=== PATIENT | male | born 1960 | race Caucasian/White ===

== ENCOUNTER 2016-11-13 18:15 | Observation (INO) | payer BC ==
[2016-11-13] MEDS ORDERED: Zofran 4 MG/2 ML VIAL IV ONE (18:29)
[2016-11-13] MEDS ORDERED: THIAMINE 200 MG/2 ML IM ONE (18:29)
[2016-11-13] MEDS ORDERED: Sodium Chloride 0.9% 1000 ML 1,000 ML IV STA (18:29)
[2016-11-13] MEDS ORDERED: Ativan 2 MG/1 ML VIAL IV ONE ×2 (18:29→19:25)
[2016-11-13] MEDS ORDERED: PROTONIX 40 MG IV IV ONE ×2 (18:30→18:33)
[2016-11-13] MEDS ORDERED: Ativan 2 MG/1 ML VIAL ONE ×2 (18:33→19:28)
[2016-11-13] MEDS ORDERED: Zofran 4 MG/2 ML VIAL ONE (18:33)
[2016-11-13] MEDS ORDERED: THIAMINE 200 MG/2 ML ONE (18:33)
[2016-11-13] MEDS ORDERED: Sodium Chloride 0.9% 1000 ML 1,000 ML ONE (18:34)
[2016-11-13 18:35] LABS: Lactic Acid 2.6 (0.4-2.0)
[2016-11-13 18:38] LABS: BASOPHIL % 0.3 % (0.0-0.4); Eosinophil % 0.4 % (0.00-5.0); Granulocytes % 77.3 % (36.0-66.0); Lymphocytes % 13.4 % (24.0-44.0); Mean Cell Volume 104.2 fl (78-100); Mean Corpuscular Hemoglobin 36.5 pg (26-32); Mean Platelet Volume 10.1 fl (6-9.5); Monocytes % 8.6 % (0.0-12.0); Platelet Count 208 K/mm3 (150-450); Red Blood Count 4.52 M/mm3 (4.1-5.6); Red Cell Distribution Width 12.8 % (11.5-14.0); White Blood Count 15.5 K/mm3 (4.0-10.5)
--- NOTE | 2016-11-13 18:41 | ERPHSYRPT ---
- History of Present Illness Time Seen by Provider: 11/13/16 18:21 Source: patient, family (son) Patient Subjective Stated Complaint: PT REPORTS VOMITING SINCE THIS AM-REPORTS NOT EATING SINCE MONDAY DUE TO DRINKING-LAST DRINK BHAKTI 0 LAST NIGHT-REPORTS SORENESS FROM VOMTING-UNSURE IF BLOOD IN VOMIT Triage Nursing Assessment: PT FLUSHED WARM ET NVP-SJIYH-RYSHCOAVE ALL QUESTIONS CORRECTLY-RESP EASY ET NONLABORED-PUPILS RESPONSIVE-NO DIAPHOSIS NOTED-ABD NONTENDER TO PALP Physician History: CC: vomiting Hx: 56 y/o patient of Dr Mcbride is a chronic drinker of alcohol. He has not eaten for 2 days. He is vomiting today, dark colored liquid. No diarrhea. No real abd pain. No chest pain. No prior abd surgeries. He feels tired and fatigue. had esophageal varices. Last alcohol was last night at 10PM. He has hx of prior alcohol withdrawal but does not feels tremors today. Decreased urination. Symptoms moderate. Not dizzy or lightheaded. Timing/Duration: today Severity: moderate Allergies/Adverse Reactions: No Known Drug Allergies Allergy (Verified 11/13/16 18:28) Home Medications: Carvedilol 6.25 mg [Coreg 6.25 MG] 1 tab PO BID 02/19/14 [History] Hx Tetanus, Diphtheria Vaccination/Date Given: Yes Hx Influenza Vaccination/Date Given: No Hx Pneumococcal Vaccination/Date Given: No Immunizations Up to Date: Yes - Review of Systems Constitutional: Fatigue, Malaise, Weakness, No Fever, No Chills Eyes: No Symptoms Ears, Nose, & Throat: No Symptoms Respiratory: No Cough, No Dyspnea Cardiac: No Chest Pain Abdominal/Gastrointestinal: Nausea, Vomiting, Hematemesis (?), No Abdominal Pain , No Diarrhea Genitourinary Symptoms: No Symptoms, No Dysuria Musculoskeletal: No Back Pain Skin: No Rash Neurological: No Dizziness, No Focal Weakness, No Headache, No Parasthesia All Other Systems: Reviewed and Negative - Past Medical History Pertinent Past Medical History: Yes Neurological History: No Pertinent History ENT History: No Pertinent History Cardiac History: Hypertension Respiratory History: No Pertinent History Endocrine Medical History: No Pertinent History Musculoskeletal History: Fractures GI Medical History: Other History: No Pertinent History Psycho-Social History: Other Male Reproductive Disorders: No Pertinent History Other Medical History: dizziness, liver inflammation d/t alcohol intake, alcoholism, broken jaw - Past Surgical History Past Surgical History: Yes Neuro Surgical History: No Pertinent History Cardiac: No Pertinent History Respiratory: No Pertinent History Gastrointestinal: No Pertinent History Genitourinary: No Pertinent History Musculoskeletal: Orthopedic Surgery Male Surgical History: No Pertinent History Other Surgical History: tonsiliectomy, surgery on jaw - Social History Smoking Status: Current every day smoker How long have you smoked: yrs Exposure to second hand smoke: No Drug Use: none Patient Lives Alone: No - Nursing Vital Signs Nursing Vital Signs: Initial Vital Signs Temperature 100.1 F 11/13/16 18:22 Pulse Rate 100 H 11/13/16 18:22 Respiratory Rate 20 11/13/16 18:22 Blood Pressure 210/110 11/13/16 18:22 O2 Sat by Pulse Oximetry 96 11/13/16 18:22 Pain Scale Pain Intensity 1 - Physical Exam General Appearance: alert, thin Eye Exam: PERRL/EOMI, No scleral icterus Ears, Nose, Throat Exam: normal ENT inspection, moist mucous membranes Neck Exam: normal inspection, non-tender, supple Respiratory Exam: normal breath sounds Cardiovascular Exam: regular rate/rhythm, No murmur, No pulse deficit Gastrointestinal/Abdomen Exam: soft, No tenderness, No distention, No mass, No guarding Male Genitalia Exam: normal genitalia Back Exam: normal inspection, No CVA tenderness, No vertebral tenderness Extremity Exam: normal inspection, normal range of motion Neurologic Exam: alert, oriented x 3, cooperative, principal developer II-XII nml as tested, sensation nml, No motor deficits Skin Exam: warm, dry, rash (mild erythematous papules on chest) SpO2 Interpretation: normal SpO2: 96 Oxygen Delivery: Room Air - Course Nursing assessment & vital signs reviewed: Yes EKG Interpreted by Me: RATE (95), Sinus Rhythm (with right atrial enlargement), NORMAL INTERVALS (QTc 458), Non-specific ST Changes (anterior) - Radiology Exams AAS X-ray Interpretation: Interpreted by me, Negative Ordered Tests: Active Orders 24 hr Category Date Time Status Quality And Reliability Engineer STAT Care 11/13/16 18:29 Active Clean Catch Urine Specimen STAT Care 11/13/16 18:22 Active EKG-ER Only STAT Care 11/13/16 18:22 Active IV Insertion STAT Care 11/13/16 18:22 Active NPO (ED) STAT Care 11/13/16 18:22 Active OBSTR/ACUTE ABDOMEN SERIES Stat Exams 11/13/16 18:31 Taken BLOOD CULTURE Stat Lab 11/13/16 18:30 Ordered CBC W DIFF Stat Lab 11/13/16 18:30 Completed CMP Stat Lab 11/13/16 18:30 Completed ETHYL ALCOHOL Stat Lab 11/13/16 18:30 Completed LIPASE Stat Lab 11/13/16 18:30 Completed Lactic Acid Stat Lab 11/13/16 18:30 Results MAGNESIUM Stat Lab 11/13/16 18:30 Completed OCCULT BLOOD, EMESIS Stat Lab 11/13/16 18:30 Completed PROTIME WITH INR Stat Lab 11/13/16 18:30 Completed TROPONIN Q3H Lab 11/13/16 18:30 Completed TROPONIN Q3H Lab 11/13/16 21:45 Ordered TROPONIN Q3H Lab 11/14/16 00:45 Ordered TROPONIN Q3H Lab 11/14/16 03:45 Ordered TROPONIN Q3H Lab 11/14/16 06:45 Ordered UA W/RFX UR CULTURE Stat Lab 11/13/16 18:23 Ordered Medication Summary Discontinued Medications Generic Name Dose Route Start Last Admin Trade Name Freq PRN Reason Stop Dose Admin Sodium Chloride 1,000 mls @ 999 mls/hr 11/13/16 18:29 11/13/16 18:34 Sodium Chloride 0.9% 1000 Ml IV 11/13/16 19:29 999 mls/hr .Q1H1M STA Administration Sodium Chloride Confirm 11/13/16 18:34 Sodium Chloride 0.9% 1000 Ml Administered 11/13/16 18:35 Dose 1,000 mls @ ud .ROUTE .STK-MED ONE Lorazepam 1 mg 11/13/16 18:29 11/13/16 18:38 Ativan 2 Mg/1 Ml Vial IV 11/13/16 18:30 1 mg STAT ONE Administration Lorazepam Confirm 11/13/16 18:33 Ativan 2 Mg/1 Ml Vial Administered 11/13/16 18:34 Dose 2 mg .ROUTE .STK-MED ONE Lorazepam 2 mg 11/13/16 19:25 11/13/16 19:30 Ativan 2 Mg/1 Ml Vial IV 11/13/16 19:26 2 mg STAT ONE Administration Lorazepam Confirm 11/13/16 19:28 Ativan 2 Mg/1 Ml Vial Administered 11/13/16 19:29 Dose 2 mg .ROUTE .STK-MED ONE Ondansetron HCl 4 mg 11/13/16 18:29 11/13/16 18:35 Zofran 4 Mg/2 Ml Vial IV 11/13/16 18:30 4 mg STAT ONE Administration Ondansetron HCl Confirm 11/13/16 18:33 Zofran 4 Mg/2 Ml Vial Administered 11/13/16 18:34 Dose 4 mg .ROUTE .STK-MED ONE Pantoprazole Sodium 40 mg 11/13/16 18:30 11/13/16 18:40 Protonix 40 Mg Iv IV 11/13/16 18:31 40 mg STAT ONE Administration Pantoprazole Sodium Confirm 11/13/16 18:33 Protonix 40 Mg Iv Administered 11/13/16 18:34 Dose 40 mg IV .STK-MED ONE Thiamine HCl 100 mg 11/13/16 18:29 11/13/16 18:36 Thiamine 200 Mg/2 Ml IM 11/13/16 18:30 100 mg STAT ONE Administration Thiamine HCl Confirm 11/13/16 18:33 Thiamine 200 Mg/2 Ml Administered 11/13/16 18:34 Dose 200 mg .ROUTE .STK-MED ONE Lab/Rad Data: Laboratory Result Diagrams 11/13/16 18:30 11/13/16 18:30 Laboratory Results 11/13/16 11/13/16 11/13/16 Range/Units 18:30 18:30 18:30 WBC (4.0-10.5) K/mm3 RBC (4.1-5.6) M/mm3 Hgb (12.5-18.0) gm/dl Hct (42-50) % MCV (78-100) fl MCH (26-32) pg MCHC (32-36) g/dl RDW (11.5-14.0) % Plt Count (150-450) K/mm3 MPV (6-9.5) fl Gran % (36.0-66.0) % Lymphocytes % (24.0-44.0) % Monocytes % (0.0-12.0) % Eosinophils % (0.00-5.0) % Basophils % (0.0-0.4) % Basophils # (0-0.4) INR (0.8-3.0) Sodium (136-145) mEq/L Potassium (3.5-5.1) mEq/L Chloride (98-107) mEq/L Carbon Dioxide (21-32) mEq/L Anion Gap (5-15) MEQ/L BUN (9-20) mg/dL Creatinine (0.55-1.30) mg/dl Estimated GFR ML/MIN Glucose (70-110) MG/DL Lactic Acid (0.4-2.0) Calcium (8.5-10.1) mg/dL Magnesium 1.9 (1.8-2.4) mg/dL Total Bilirubin (0.2-1.0) mg/dL AST (15-37) U/L ALT (12-78) U/L Alkaline Phosphatase (46-116) U/L Troponin I < 0.017 (0.000-0.056) ng/ml Serum Total Protein (6.4-8.2) gm/dL Albumin (3.4-5.0) g/dL Lipase (73-393) U/L Emesis for Blood POSITIVE (Negative) Ethyl Alcohol < 0.010 (0.00-0.01) % 11/13/16 11/13/16 11/13/16 Range/Units 18:30 18:30 18:30 WBC (4.0-10.5) K/mm3 RBC (4.1-5.6) M/mm3 Hgb (12.5-18.0) gm/dl Hct (42-50) % MCV (78-100) fl MCH (26-32) pg MCHC (32-36) g/dl RDW (11.5-14.0) % Plt Count (150-450) K/mm3 MPV (6-9.5) fl Gran % (36.0-66.0) % Lymphocytes % (24.0-44.0) % Monocytes % (0.0-12.0) % Eosinophils % (0.00-5.0) % Basophils % (0.0-0.4) % Basophils # (0-0.4) INR 0.92 (0.8-3.0) Sodium 138 (136-145) mEq/L Potassium 4.1 (3.5-5.1) mEq/L Chloride 89 L (98-107) mEq/L Carbon Dioxide 25.1 (21-32) mEq/L Anion Gap 28.1 H (5-15) MEQ/L BUN 25 H (9-20) mg/dL Creatinine 1.29 (0.55-1.30) mg/dl Estimated GFR > 60 ML/MIN Glucose 99 (70-110) MG/DL Lactic Acid 2.6 H (0.4-2.0) Calcium 9.8 (8.5-10.1) mg/dL Magnesium (1.8-2.4) mg/dL Total Bilirubin 2.40 H (0.2-1.0) mg/dL AST 35 (15-37) U/L ALT 32 (12-78) U/L Alkaline Phosphatase 104 (46-116) U/L Troponin I (0.000-0.056) ng/ml Serum Total Protein 7.5 (6.4-8.2) gm/dL Albumin 4.1 (3.4-5.0) g/dL Lipase 79 (73-393) U/L Emesis for Blood (Negative) Ethyl Alcohol (0.00-0.01) % 11/13/ Range/Units 18:30 WBC 15.5 H (4.0-10.5) K/mm3 RBC 4.52 (4.1-5.6) M/mm3 Hgb 16.5 (12.5-18.0) gm/dl Hct 47.1 (42-50) % MCV 104.2 H (78-100) fl MCH 36.5 H (26-32) pg MCHC 35.0 (32-36) g/dl RDW 12.8 (11.5-14.0) % Plt Count 208 (150-450) K/mm3 MPV 10.1 H (6-9.5) fl Gran % 77.3 H (36.0-66.0) % Lymphocytes % 13.4 L (24.0-44.0) % Monocytes % 8.6 (0.0-12.0) % Eosinophils % 0.4 (0.00-5.0) % Basophils % 0.3 (0.0-0.4) % Basophils # 0.04 (0-0.4) INR (0.8-3.0) Sodium (136-145) mEq/L Potassium (3.5-5.1) mEq/L Chloride (98-107) mEq/L Carbon Dioxide (21-32) mEq/L Anion Gap (5-15) MEQ/L BUN (9-20) mg/dL Creatinine (0.55-1.30) mg/dl Estimated GFR ML/MIN Glucose (70-110) MG/DL Lactic Acid (0.4-2.0) Calcium (8.5-10.1) mg/dL Magnesium (1.8-2.4) mg/dL Total Bilirubin (0.2-1.0) mg/dL AST (15-37) U/L ALT (12-78) U/L Alkaline Phosphatase (46-116) U/L Troponin I (0.000-0.056) ng/ml Serum Total Protein (6.4-8.2) gm/dL Albumin (3.4-5.0) g/dL Lipase (73-393) U/L Emesis for Blood (Negative) Ethyl Alcohol (0.00-0.01) % - Progress Progress Note: 11/13/16 19:37 IVF bolus given. Protonix, ativan, zofran, thiamine given. He has some degree of alcohol withdrawal. No focal source of infection to suggest sepsis. HE has hematemesis with stable Hg. Familky worried about varices. Called Dr Linares and will place in obs for serial H/H, consideration of EGD, and treatment of alcohol withdrawal. Pt and family agree. Discussed with .: Milagros (for Alejandro) Will see patient in: hospital (observation) Counseled pt/family regarding: lab results, diagnosis, need for follow-up, rad results - Departure Time of Disposition: 19:38 Departure Disposition: Observation Clinical Impression: Hematemesis, Alcohol withdrawal Condition: Fair Critical Care Time: Yes Critical Care Time(excluding separately billable procedures): 30-74 minutes Referrals: JAKOB MCBRIDE MD [Primary Care Provider] -
[2016-11-13 18:54] LABS: INR 0.92 (0.8-3.0); PROTIME 10.4 SECONDS (8.83-12.87)
[2016-11-13 19:03] LABS: ETHYL ALCOHOL < 0.010 % (0.00-0.01); MAGNESIUM 1.9 mg/dL (1.8-2.4)
[2016-11-13 19:16] LABS: ALBUMIN 4.1 g/dL (3.4-5.0); ALKALINE PHOSPHATASE 104 U/L (46-116); ANION GAP 28.1 MEQ/L (5-15); BLOOD UREA NITROGEN 25 mg/dL (9-20); CHLORIDE 89 mEq/L (98-107); Carbon Dioxide 25.1 mEq/L (21-32); Glucose 99 MG/DL (70-110); LIPASE 79 U/L (73-393); Potassium 4.1 mEq/L (3.5-5.1); SGOT/AST 35 U/L (15-37); SGPT/ALT 32 U/L (12-78); SODIUM 138 mEq/L (136-145); Total Protein 7.5 gm/dL (6.4-8.2)
[2016-11-13 19:48] LABS: Collection Type CLEAN CATCH; Glucose NEGATIVE (NEGATIVE); Leukocyte Esterase NEGATIVE (NEGATIVE)
[2016-11-13 19:49] LABS: ADD URINE CULTURE? NO (NO); Bilirubin NEGATIVE (NEGATIVE); Blood NEGATIVE Ery/ul (0-5); COMPLETE URINE MICROSCOPIC? NO
--- NOTE | 2016-11-13 19:56 | XRAY ---
Indication: Abdominal pain and vomiting. Comparison: None 2 views of the abdomen nonacute and nonobstructed with mild diffuse scattered colonic fecal debris. Heavy scattered aortoiliac calcifications. Remaining solid organs unremarkable. Osseous structures intact with multilevel spinal endplate osteophytes. Single PA chest hyperinflated and clear. Heart and mediastinal structures within normal limits. Bony thorax intact. Impression: Fecal stasis without obstruction. Nonacute hyperinflated one view chest.
[2016-11-13] MEDS ORDERED: Ativan 2 MG/1 ML VIAL IV PRN (20:25)
[2016-11-13] MEDS ORDERED: Zofran 4 MG/2 ML VIAL IV PRN (20:25)
[2016-11-13] MEDS: Nicoderm CQ 21 MG TOP SCH (20:42)
[2016-11-13] MEDS: Dextrose 5%-Lr IV Solution 1000 ML 1,000 ML IV SCH (20:42)
[2016-11-13 21:55] LABS: Mean Cell Volume 103.5 fl (78-100); Mean Corpuscular Hemoglobin 37.5 pg (26-32); Mean Platelet Volume 9.8 fl (6-9.5); Platelet Count 158 K/mm3 (150-450); Red Blood Count 3.76 M/mm3 (4.1-5.6); White Blood Count 11.9 K/mm3 (4.0-10.5)
[2016-11-13] MEDS ORDERED: COREG 12.5 MG PO ONE (23:00)
[2016-11-14 05:34] LABS: BASOPHIL % 0.2 % (0.0-0.4); Eosinophil % 0.8 % (0.00-5.0); Granulocytes % 73.8 % (36.0-66.0); Mean Cell Volume 105.3 fl (78-100); Mean Corpuscular Hemoglobin 36.3 pg (26-32); Mean Platelet Volume 10.5 fl (6-9.5); Monocytes % 8.2 % (0.0-12.0); Platelet Count 148 K/mm3 (150-450); Red Blood Count 3.58 M/mm3 (4.1-5.6); White Blood Count 10.9 K/mm3 (4.0-10.5)
[2016-11-14 06:14] LABS: ALKALINE PHOSPHATASE 69 U/L (46-116); ANION GAP 13.5 MEQ/L (5-15); BLOOD UREA NITROGEN 15 mg/dL (9-20); CHLORIDE 99 mEq/L (98-107); Carbon Dioxide 29.1 mEq/L (21-32); Glucose 127 MG/DL (70-110); Potassium 3.6 mEq/L (3.5-5.1); SGOT/AST 25 U/L (15-37); SGPT/ALT 21 U/L (12-78); SODIUM 138 mEq/L (136-145); Total Protein 5.3 gm/dL (6.4-8.2)
[2016-11-14] MEDS: Dextrose 5%-Lr IV Solution 1000 ML 1,000 ML IV SCH (06:28)
[2016-11-14] MEDS ORDERED: Ketamine HCl 50 MG/ML IV ONE (08:00)
[2016-11-14] MEDS ORDERED: DIPRIVAN 200 MG/20 ML IV ONE (08:00)
--- NOTE | 2016-11-14 08:20 | PCM.HP ---
History of Present Illness - Chief Complaint Chief Complaint: alcohol withdrawal History of Present Illness: is a 56 year old male who battles with chronic alcoholism, he reported to the ER complainined of hematemesis yesterday, apparently hadn't eaten for 2 days. He has been to [place] and had inpatient treatment for alcoholism in 2013 but states he had a bad experience, has not been attending AA meetings etc. His parents and children are very supportive of him and he states he has a good support system but he doesn't utilize them or ask for help. He denies abdominal pain, no diarrhea, hasn't vomited overnight and feels well this morning. - Review of Systems Constitutional: No Symptoms Respiratory: No Cough, No Short Of Breath Cardiac: No Chest Pain, No Edema, No Syncope Abdominal/Gastrointestinal: Nausea, Vomiting, Hematemesis, No Abdominal Pain, No Hematochezia, No Melena Genitourinary Symptoms: No Dysuria Skin: No Rash All Other Systems: Reviewed and Negative Medications & Allergies Home Medications: Home Medication List Carvedilol 6.25 mg [Coreg 6.25 MG] 12.5 mg PO BID 02/19/14 [History Confirmed 11/13/16] Cyanocobalamin (Vitamin B-12) [Vitamin B12] 2,500 mcg PO DAILY 11/13/16 [ History Confirmed 11/13/16] Pnv No.95/Ferrous Fum/Folic AC [ Multivitamin Tablet] 1 tablet PO DAILY 11/13/16 [History Confirmed 11/13/16] Allergies/Adverse Reactions: Allergies Allergy/AdvReac Type Severity Reaction Status Date / Time No Known Drug Allergies Allergy Verified 11/13/16 18:28 - Past Medical History Past Medical History: Yes Neurological History: No Pertinent History ENT History: No Pertinent History Cardiac History: Hypertension Respiratory History: No Pertinent History Endocrine Medical History: No Pertinent History Musculoskelatal History: Fractures GI Medical History: Other History: No Pertinent History Pyscho-Social History: Other Male Reproductive Disorders: No Pertinent History Comment: dizziness, liver inflammation d/t alcohol intake, alcoholism, broken jaw - Past Surgical History Past Surgical History: Yes Neuro Surgical History: No Pertinent History Cardiac History: No Pertinent History Respiratory Surgery: No Pertinent History GI Surgical History: No Pertinent History Genitourinary Surgical Hx: No Pertinent History Musculskeletal Surgical Hx: Orthopedic Surgery Male Surgical History: No Pertinent History Other Surgical History: tonsiliectomy, surgery on jaw - Social History Smoking Status: Current every day smoker How long have you smoked: 40 years Exposure to second hand smoke: No Alcohol: Heavy Drug Use: none - Physical Exam Vital Signs: Vital Signs - 24 hr Temp Pulse Resp BP Pulse Ox 11/14/16 06:31 16 97 11/14/16 06:30 11 L 89 L 11/14/16 05:56 77 10 L 141/73 99 11/14/16 04:00 98.1 F 78 18 147/77 95 11/14/16 02:00 78 17 133/68 94 L 11/14/16 01:00 80 11/14/16 00:00 98.3 F 80 18 133/68 95 11/13/16 21:12 98.9 F 92 H 11 L 152/79 98 11/13/16 20:25 98.9 F 92 H 11 L 152/79 98 11/13/16 20:01 86 16 156/84 99 11/13/16 19:49 86 16 150/68 99 11/13/16 19:39 96 11/13/16 19:03 90 18 171/88 96 11/13/16 18:44 85 20 184/93 96 11/13/16 18:22 100.1 F 100 H 20 210/110 96 Oxygen-Last 24 hours O2 Percentage 2 Liters = 28% O2 Percentage 2 Liters = 28% General Appearance: no apparent distress, alert Eye Exam: PERRL/EOMI, eyes nml inspection Respiratory Exam: normal breath sounds, lungs clear, No respiratory distress Cardiovascular Exam: regular rate/rhythm, normal heart sounds, normal peripheral pulses Gastrointestinal/Abdomen Exam: soft, normal bowel sounds, No tenderness, No mass Extremity Exam: normal inspection, normal range of motion, pelvis stable Skin Exam: normal color, warm, dry, No rash Results - Labs Lab/Micro Results: Lab Results-Last 24 Hours 11/13/16 11/13/16 11/13/16 Range/Units 21:45 21:45 21:46 WBC 11.9 H (4.0-10.5) K/mm3 RBC 3.76 L (4.1-5.6) M/mm3 Hgb 14.1 (12.5-18.0) gm/dl Hct 38.9 L (42-50) % MCV 103.5 H (78-100) fl MCH 37.5 H (26-32) pg MCHC 36.2 H (32-36) g/dl RDW 13.0 (11.5-14.0) % Plt Count 158 (150-450) K/mm3 MPV 9.8 H (6-9.5) fl Gran % (36.0-66.0) % Lymphocytes % (24.0-44.0) % Monocytes % (0.0-12.0) % Eosinophils % (0.00-5.0) % Basophils % (0.0-0.4) % Basophils # (0-0.4) Sodium (136-145) mEq/L Potassium (3.5-5.1) mEq/L Chloride (98-107) mEq/L Carbon Dioxide (21-32) mEq/L Anion Gap (5-15) MEQ/L BUN (9-20) mg/dL Creatinine (0.55-1.30) mg/dl Estimated GFR ML/MIN Glucose (70-110) MG/DL Lactic Acid 1.1 (0.4-2.0) Calcium (8.5-10.1) mg/dL Total Bilirubin (0.2-1.0) mg/dL AST (15-37) U/L ALT (12-78) U/L Alkaline Phosphatase (46-116) U/L Troponin I 0.018 (0.000-0.056) ng/ml Serum Total Protein (6.4-8.2) gm/dL Albumin (3.4-5.0) g/dL 11/14/16 11/14/16 11/14/16 Range/Units 01:05 04:30 04:30 WBC 10.9 H (4.0-10.5) K/mm3 RBC 3.58 L (4.1-5.6) M/mm3 Hgb 13.0 (12.5-18.0) gm/dl Hct 37.7 L (42-50) % MCV 105.3 H (78-100) fl MCH 36.3 H (26-32) pg MCHC 34.5 (32-36) g/dl RDW 13.0 (11.5-14.0) % Plt Count 148 L (150-450) K/mm3 MPV 10.5 H (6-9.5) fl Gran % 73.8 H (36.0-66.0) % Lymphocytes % 17.0 L (24.0-44.0) % Monocytes % 8.2 (0.0-12.0) % Eosinophils % 0.8 (0.00-5.0) % Basophils % 0.2 (0.0-0.4) % Basophils # 0.02 (0-0.4) Sodium (136-145) mEq/L Potassium (3.5-5.1) mEq/L Chloride (98-107) mEq/L Carbon Dioxide (21-32) mEq/L Anion Gap (5-15) MEQ/L BUN (9-20) mg/dL Creatinine (0.55-1.30) mg/dl Estimated GFR ML/MIN Glucose (70-110) MG/DL Lactic Acid (0.4-2.0) Calcium (8.5-10.1) mg/dL Total Bilirubin (0.2-1.0) mg/dL AST (15-37) U/L ALT (12-78) U/L Alkaline Phosphatase (46-116) U/L Troponin I 0.018 0.022 (0.000-0.056) ng/ml Serum Total Protein (6.4-8.2) gm/dL Albumin (3.4-5.0) g/dL 11/14/16 Range/Units 04:30 WBC (4.0-10.5) K/mm3 RBC (4.1-5.6) M/mm3 Hgb (12.5-18.0) gm/dl Hct (42-50) % MCV (78-100) fl MCH (26-32) pg MCHC (32-36) g/dl RDW (11.5-14.0) % Plt Count (150-450) K/mm3 MPV (6-9.5) fl Gran % (36.0-66.0) % Lymphocytes % (24.0-44.0) % Monocytes % (0.0-12.0) % Eosinophils % (0.00-5.0) % Basophils % (0.0-0.4) % Basophils # (0-0.4) Sodium 138 (136-145) mEq/L Potassium 3.6 (3.5-5.1) mEq/L Chloride 99 (98-107) mEq/L Carbon Dioxide 29.1 (21-32) mEq/L Anion Gap 13.5 (5-15) MEQ/L BUN 15 (9-20) mg/dL Creatinine 0.90 (0.55-1.30) mg/dl Estimated GFR > 60 ML/MIN Glucose 127 H (70-110) MG/DL Lactic Acid (0.4-2.0) Calcium 8.1 L (8.5-10.1) mg/dL Total Bilirubin 1.90 H (0.2-1.0) mg/dL AST 25 (15-37) U/L ALT 21 (12-78) U/L Alkaline Phosphatase 69 (46-116) U/L Troponin I (0.000-0.056) ng/ml Serum Total Protein 5.3 L (6.4-8.2) gm/dL Albumin 3.0 L (3.4-5.0) g/dL Assessment/Plan (1) Hematemesis Current Visit: Yes Status: Acute Assessment & Plan: keep NPO, on protonix 40mg IV q24 hrs, consult surgery for discussion of EGD in case any varices are present or need banding etc. currently hemodynamically stable, hemoglobin dropped from 16.5 on arrival to 13, some of this is undoubtedly dilutional from hydration. will monitor, if any more episodes of hematemesis will start protonix gtt. Code(s): K92.0 - HEMATEMESIS (2) Alcohol withdrawal Current Visit: Yes Status: Acute Assessment & Plan: currently on detox protocol, CIWA score 0 this am per nursing. Code(s): F10.239 - ALCOHOL DEPENDENCE WITH WITHDRAWAL, UNSPECIFIED (3) Alcohol abuse Current Visit: No Status: Acute Assessment & Plan: discussed treatment options, patient declines any services at this time. he is aware of the health effects of his alcohol abuse, his from variceal bleeds related to alcohol abuse. he states he knows he needs to quit and his family will support and help him. Code(s): F10.10 - ALCOHOL ABUSE, UNCOMPLICATED
[2016-11-14] MEDS: THIAMINE 200 MG/2 ML IM SCH (09:28)
[2016-11-14] MEDS: COREG 12.5 MG PO SCH ×2 (09:28→21:23)
[2016-11-14] MEDS: PROTONIX 40 MG IV IV SCH (09:29)
[2016-11-14] MEDS ORDERED: [UNRECOGNIZED DRUG - REMARK] PO SCH (10:00)
[2016-11-14] MEDS ORDERED: COREG 12.5 MG PO SCH (10:00)
[2016-11-14] MEDS ORDERED: Vitamin B-12 500 MCG PO SCH (10:00)
[2016-11-14] MEDS ORDERED: Coreg 6.25 MG PO SCH (10:00)
[2016-11-14] MEDS ORDERED: Lactated Ringers 1,000 ML IV SCH (16:00)
[2016-11-14] MEDS: THERAGRAN MULTIVITAMIN PO SCH (19:19)
[2016-11-14] MEDS: Nicoderm CQ 21 MG TOP SCH (21:23)
[2016-11-15] MEDS: Dextrose 5%-Lr IV Solution 1000 ML 1,000 ML IV SCH (01:02)
[2016-11-15 05:32] LABS: BASOPHIL % 0.1 % (0.0-0.4); Eosinophil % 2.4 % (0.00-5.0); Granulocytes % 65.4 % (36.0-66.0); Lymphocytes % 21.4 % (24.0-44.0); Mean Cell Volume 106.2 fl (78-100); Mean Platelet Volume 10.4 fl (6-9.5); Monocytes % 10.7 % (0.0-12.0); Platelet Count 113 K/mm3 (150-450); Red Blood Count 3.71 M/mm3 (4.1-5.6); White Blood Count 7.5 K/mm3 (4.0-10.5)
[2016-11-15 05:35] LABS: Mean Corpuscular Hemoglobin 37.4 pg (26-32)
[2016-11-15 05:49] LABS: ALBUMIN 3.2 g/dL (3.4-5.0); ALKALINE PHOSPHATASE 76 U/L (46-116); ANION GAP 9.4 MEQ/L (5-15); BLOOD UREA NITROGEN 4 mg/dL (9-20); CHLORIDE 103 mEq/L (98-107); Carbon Dioxide 32.4 mEq/L (21-32); Glucose 138 MG/DL (70-110); Potassium 3.9 mEq/L (3.5-5.1); SGOT/AST 30 U/L (15-37); SGPT/ALT 26 U/L (12-78); SODIUM 141 mEq/L (136-145); Total Protein 5.9 gm/dL (6.4-8.2)
[2016-11-15 07:13] VITALS: BP 150/86; PULSE 80; O2SAT 97
--- NOTE | 2016-11-15 08:51 | CONS ---
CONSULT DATE: 11/14/2016 This patient is seen for Dr. De Oliveira who is music rehabilitation therapist for our group today. As I was doing some cases down here he asked for me to see this patient. HISTORY: A 56 year-old gentleman, chronic drinker of alcohol, had some dark-colored emesis. Hemoglobin 16 and then was 13 and has been stable around 13. He denies any more hematemesis at this time. Alcohol was a day or two ago. The patient's had esophageal varices prior. He has history of prior alcohol withdrawal. PAST MEDICAL HISTORY: In addition to alcohol abuse he also has some hypertension. PAST SURGICAL HISTORY: Broken jaw in the past. He had surgery on his jaw. He had tonsillectomy in the past. He had prior upper and lower endoscopy. He denies being told that he had varices in the past. MEDICATIONS: Carvedilol. ALLERGIES: NKDA. FAMILY HISTORY: Negative in regards to this problem. SOCIAL HISTORY: Alcohol abuse. History of smoking. REVIEW OF SYSTEMS: Twelve systems reviewed. He looked tired and little fatigued in addition to the above complaints. No current chest pain or palpitations. No abdominal pain. No hematemesis currently. He is afebrile. Hemodynamically stable. PHYSICAL EXAMINATION: Vitals per recorded in the record. GENERAL: A chronically ill gentleman. HEENT: Sclera nonicteric. NECK: No JVD. CHEST: Equal excursion, nonlabored breathing. CVS: Regular rhythm and pulse. ABDOMEN: Soft, nontender. EXTREMITIES: No edema. NEURO: Alert, moving extremities grossly symmetrically. IMPRESSION: GI bleed, hematemesis. It could be anything from gastritis, ulcer disease, could be secondary to varices. His hemoglobin 13, white blood cell count 10.9, PLT 148,000. AST 25, ALT 21, alkaline phosphatase 69, total bilirubin 1.9. Hemodynamically stable. No massive bleeding now. I feel he will benefit from upper endoscopy for further evaluation. Risks and benefits explained in detail but not limited to bleeding or infection, small risk bowel injury or perforation possibly requiring other procedure, risk of ongoing morbidity/mortality, small risk of missed or nondiagnosis or inability to diagnose the etiology of his hematemesis possibly requiring other studies or procedures if he had recurrence. He also understands that if we diagnose varices but we do not have bands to treat varices here. Our group does not perform special treatments for varices and he would need to be referred to a GI physician should it come to that. He understands as well as risk of bleeding, infection, perforation, sedation or anesthesia but not related to. He understands and agrees to the planned procedure, will proceed with EGD and possible biopsy when OR time available later. Again this patient is seen for Dr. De Oliveira who is music rehabilitation therapist for our group today.
--- NOTE | 2016-11-15 09:25 | PCM.DS ---
Discharge Summary Date of Admission: 11/13/16 20:10 Admitting Physician: JAKOB MCBRIDE Consults: Consults on Case 11/14/16 08:13 Consult Surgery ROUTINE Primary Care Provider: JAKOB MCBRIDE Allergies Allergies No Known Drug Allergies Allergy (Verified 11/13/16 18:28) Hospital Summary - Hospital Course Hospital Course: patient was admitted with upper GI bleed, hx of alcoholism, doing well after EGD showed ulcer and esophagitis. - Vitals & Intake/Output Vital Signs: Vital Signs Temperature 98 F 11/15/16 07:11 Pulse Rate 80 11/15/16 07:11 Respiratory Rate 18 11/15/16 07:11 Blood Pressure 150/86 11/15/16 07:11 O2 Sat by Pulse Oximetry 97 11/15/16 07:11 Oxygen-Last Documented O2 Percentage 2 Liters = 28% Intake & Output: Intake & Output 11/12/16 11/13/16 11/14/16 11/15/16 11:59 11:59 11:59 11:59 Intake Total 2293 3122 Output Total 430 4075 Balance 1863 -953 Weight 64.954 kg 66.86 kg - Lab Result Diagrams: 11/15/16 05:23 11/15/16 05:23 Lab Results-Last 24 Hrs: Lab Results-Last 24 Hours 11/15/16 11/15/16 Range/Units 05:23 05:23 WBC 7.5 (4.0-10.5) K/mm3 RBC 3.71 L (4.1-5.6) M/mm3 Hgb 13.9 (12.5-18.0) gm/dl Hct 39.4 L (42-50) % MCV 106.2 H (78-100) fl MCH 37.4 H (26-32) pg MCHC 35.3 (32-36) g/dl RDW 13.0 (11.5-14.0) % Plt Count 113 L (150-450) K/mm3 MPV 10.4 H (6-9.5) fl Gran % 65.4 (36.0-66.0) % Lymphocytes % 21.4 L (24.0-44.0) % Monocytes % 10.7 (0.0-12.0) % Eosinophils % 2.4 (0.00-5.0) % Basophils % 0.1 (0.0-0.4) % Basophils # 0.01 (0-0.4) Sodium 141 (136-145) mEq/L Potassium 3.9 (3.5-5.1) mEq/L Chloride 103 (98-107) mEq/L Carbon Dioxide 32.4 H (21-32) mEq/L Anion Gap 9.4 (5-15) MEQ/L BUN 4 L (9-20) mg/dL Creatinine 0.71 (0.55-1.30) mg/dl Estimated GFR > 60 ML/MIN Glucose 138 H (70-110) MG/DL Calcium 9.1 (8.5-10.1) mg/dL Total Bilirubin 1.20 H (0.2-1.0) mg/dL AST 30 (15-37) U/L ALT 26 (12-78) U/L Alkaline Phosphatase 76 (46-116) U/L Serum Total Protein 5.9 L (6.4-8.2) gm/dL Albumin 3.2 L (3.4-5.0) g/dL - Procedures and Test Procedures and Tests throughout Hospitalization: Therapy Orders & Screens 11/14/16 19:22 Oxygen NASAL CANNULA 2 lpm Comment: TO KEEP SPO2 >92% PER R.T. PROTOCOL Diagnosis: alcohol withdrawal Discharge Exam General Appearance: no apparent distress, alert Respiratory Exam: normal breath sounds, lungs clear, No respiratory distress Cardiovascular Exam: regular rate/rhythm, normal heart sounds Gastrointestinal/Abdomen Exam: soft, No tenderness, No mass Extremity Exam: normal inspection, normal range of motion Final Diagnosis/Problem List - Final Discharge Diagnosis/Problem (1) Hematemesis Current Visit: Yes Status: Acute Assessment & Plan: home on po protonix, advised against use of further alcohol (2) Alcohol withdrawal Current Visit: Yes Status: Acute Assessment & Plan: no signs of withdrawal at this time. (3) Alcohol abuse Current Visit: No Status: Acute - Discharge Disposition: Home, Self-Care Condition: Fair Prescriptions: New PANTOPRAZOLE 40 mg Tablet [Protonix 40MG Tablet] 40 mg PO QAM #30 tab Continue Carvedilol 6.25 mg [Coreg 6.25 MG] 12.5 mg PO BID Pnv No.95/Ferrous Fum/Folic AC [ Multivitamin Tablet] 1 tablet PO DAILY Cyanocobalamin (Vitamin B-12) [Vitamin B12] 2,500 mcg PO DAILY Follow up with: JAKOB MCBRIDE MD [Primary Care Provider] - JOSE WELCH [COURTESY STAFF] -
--- NOTE | 2016-11-15 09:40 | OP ---
SURGERY DATE/TIME: 11/14/2016 3283 PREOPERATIVE DIAGNOSES: 1) History of upper GI bleed. 2) History of alcohol abuse. 3) History of hematemesis. POSTOPERATIVE DIAGNOSES: 1) Moderate duodenitis. 2) Mild gastritis with small superficial prepyloric ulceration. 3) Short segment erosive esophagitis. PROCEDURES: 1) EGD with cold biopsy of small bowel to evaluate duodenitis. 2) Cold biopsy of the antrum to evaluate for Helicobacter pylori. 3) Cold biopsy esophagus. SURGEON: Dr. Easton Flores. ANESTHESIA: MAC. ESTIMATED BLOOD LOSS: Minimal. INDICATIONS: As noted above. Risks and benefits explained in detail and not limited to and consent obtained. DESCRIPTION OF PROCEDURE AND FINDINGS: The patient is taken to the operating room. MAC anesthesia introduced. After official time out and no disagreement with planned procedure, bite block positioned. Video gastroscope easily passed down the esophagus through the patent pylorus to the junction of the second and third portion of the duodenum. In the duodenum he had moderate duodenitis. There did not appear to be any obvious deep ulcer crater in the duodenum but he definitely had moderate duodenitis. No active bleeding but definitely significant inflammation. Cold biopsy taken of the small bowel to evaluate for duodenitis. Good hemostasis noted. The scope pulled back into the antrum. Cold biopsy taken for Helicobacter pylori. He had gastritis with a superficial shallow early prepyloric ulceration. Otherwise on retroflex he did have a small petechial area in the proximal stomach. No visible vessel. No juju ulceration. It was difficult to tell whether he had any underlying gastric varices or not as he had some folds in the proximal stomach. Otherwise no obvious mass or other mucosal lesions other than gastritis. The scope pulled back. The gastroesophageal junction about 40 cm. He did have short segment of distal gastric esophagitis. Given his severe drinking history and the fact that he does not have any banding capabilities here, the area of the esophagus was biopsied in the distal esophagus away from any potential underlying vessel. Good hemostasis noted. It should be noted that he did not appear to have any large esophageal varices at this time. No signs of any obvious masses or mucosal lesions. The scope is withdrawn. The patient tolerated the procedure well. There were no immediate complications. Findings discussed with the family out in the waiting area. He is to stop drinking. He needs to continue proton pump inhibitor for the gastritis and avoid alcohol, NSAID, Plavix or aspirin and avoid nonsteroidal for a good week or so if not longer. The patient tolerated the procedure well. There were no immediate complications. I will see him back in the office in a couple of weeks. Should he develop varices down the road likely he will need to be referred to GI for further treatment but at this time no active bleeding.
[2016-11-15] MEDS: THERAGRAN MULTIVITAMIN PO SCH (10:11)
[2016-11-15] MEDS: COREG 12.5 MG PO SCH (10:11)
[2016-11-15] MEDS: PROTONIX 40 MG IV IV SCH (10:12)
[2016-11-15] MEDS: THIAMINE 200 MG/2 ML IM SCH (10:43)
== END 2016-11-15 10:50 | disposition home or self-care (01) ==
LOC: ED 18:15 → ICU 20:10 → UNDOADMOB 20:10 → UNDOADMIN 20:10 → INTOOBSV 20:10 → ICU 11-14 19:30 → MED SURG 11-14 19:30 → OBSVTOIN 11-14 19:30 → UNDOADMOB 11-14 19:30 → INTOOBSV 11-14 19:30 → ICU 11-15 05:45 → MED SURG 11-15 05:45
PROVIDERS: ADMIT Family Medicine; ATTEND Family Medicine
PROC: 0DB88ZX Excision of Small Intestine, Via Natural or Artificial Opening Endoscopic, Diagnostic (ICD-10-PCS; principal; 2016-11-14)
PROC: 0DB58ZX Excision of Esophagus, Via Natural or Artificial Opening Endoscopic, Diagnostic (ICD-10-PCS; 2016-11-14)
PROC: 0DB78ZX Excision of Stomach, Pylorus, Via Natural or Artificial Opening Endoscopic, Diagnostic (ICD-10-PCS; 2016-11-14)
DX: K92.0 Hematemesis (principal); F10.239 Alcohol dependence with withdrawal, unspecified; F10.20 Alcohol dependence, uncomplicated; I10 Essential (primary) hypertension; K75.9 Inflammatory liver disease, unspecified; Z72.0 Tobacco use; K29.80 Duodenitis without bleeding; K29.70 Gastritis, unspecified, without bleeding; K25.9 Gastric ulcer, unspecified as acute or chronic, without hemorrhage or perforation; K22.10 Ulcer of esophagus without bleeding
CPT/HCPCS: 00740; 36000; 36415; 74022; 80053; 80307; 81002; 82271; 83605; 83690; 83735; 84484; 85025; 85027; 85610; 86850; 86900; 86901; 87040; 93005; 93041; 93268; 96360; 96361; 96372; 96374; 96375; 99285; G0378; G0481; J2060; J2405; J2704; A9270-GY

== ENCOUNTER 2017-06-23 15:51 | Inpatient (IN) | payer BC ==
[2017-06-23] MEDS ORDERED: Zofran 4 MG/2 ML VIAL IV ONE (16:10)
[2017-06-23] MEDS ORDERED: LIBRIUM 25 MG PO ONE (16:12)
[2017-06-23] MEDS ORDERED: THERAGRAN MULTIVITAMIN PO ONE (16:13)
[2017-06-23] MEDS ORDERED: Sodium Chloride 0.9% 1000 ML 1,000 ML IV STA ×2 (16:13→17:18)
[2017-06-23] MEDS ORDERED: FOLATE 1 MG PO ONE (16:13)
[2017-06-23] MEDS ORDERED: VITAMIN B-1 100 MG PO ONE (16:13)
[2017-06-23 16:34] LABS: Lactic Acid 3.2 (0.4-2.0)
--- NOTE | 2017-06-23 16:35 | ERPHSYRPT ---
- History of Present Illness Time Seen by Provider: 06/23/17 16:15 Source: patient, family Exam Limitations: no limitations Patient Subjective Stated Complaint: pt here for hallucinations,unsteady since sat.,drank last on monday. drinking water well, not eaing well Triage Nursing Assessment: pt walked in alert, resp easy, skin w/d/p,pt denies hearing voices or seeing things, pt denies being suicidal. Physician History: 56 y/o male with history of alcohol abuse brought in by son for hallucinations. According to son, patient has been seeing people that are not there and saying weird statements. Pt's last drink of alcohol was on Monday. Pt has a history of alcohol withdrawal and DTs. Pt denies any shakes, no illicit drug use, chest pain, headache, dizziness, nausea, vomiting or diarrhea. Pt's son states that he has falling multiple times since Monday. Timing/Duration: day(s) Severity: moderate Associated Symptoms: No nausea, No vomiting, No headaches Allergies/Adverse Reactions: No Known Drug Allergies Allergy (Verified 06/23/17 16:04) Home Medications: Carvedilol 6.25 mg [Coreg 6.25 MG] 12.5 mg PO BID 02/19/14 [History] Cyanocobalamin (Vitamin B-12) [Vitamin B12] 2,500 mcg PO DAILY 11/13/16 [History ] Pnv No.95/Ferrous Fum/Folic AC [ Multivitamin Tablet] 1 tablet PO DAILY 11/13/16 [History] Hx Tetanus, Diphtheria Vaccination/Date Given: No Hx Influenza Vaccination/Date Given: No Hx Pneumococcal Vaccination/Date Given: No Immunizations Up to Date: Yes - Review of Systems Constitutional: No Fever, No Chills Eyes: No Symptoms Ears, Nose, & Throat: No Symptoms Respiratory: No Cough, No Dyspnea Cardiac: No Chest Pain, No Edema, No Syncope Abdominal/Gastrointestinal: No Abdominal Pain, No Nausea, No Vomiting, No Diarrhea Genitourinary Symptoms: No Dysuria Musculoskeletal: No Back Pain, No Neck Pain Skin: No Rash Neurological: No Dizziness, No Focal Weakness, No Sensory Changes Psychological: Alcohol Abuse, Depression, Emotional Lability, Hallucinations, No Drug Abuse Endocrine: No Symptoms All Other Systems: Reviewed and Negative - Past Medical History Pertinent Past Medical History: Yes Neurological History: No Pertinent History ENT History: No Pertinent History Cardiac History: Hypertension Respiratory History: No Pertinent History Endocrine Medical History: No Pertinent History Musculoskeletal History: Fractures GI Medical History: Other History: No Pertinent History Psycho-Social History: Other Male Reproductive Disorders: No Pertinent History Other Medical History: dizziness, liver inflammation d/t alcohol intake, alcoholism, broken jaw - Past Surgical History Past Surgical History: Yes Neuro Surgical History: No Pertinent History Cardiac: No Pertinent History Respiratory: No Pertinent History Gastrointestinal: No Pertinent History Genitourinary: No Pertinent History Musculoskeletal: Orthopedic Surgery Male Surgical History: No Pertinent History Other Surgical History: tonsiliectomy, surgery on jaw - Social History Smoking Status: Current every day smoker How long have you smoked: 40 years Exposure to second hand smoke: Yes Drug Use: none Patient Lives Alone: No - Nursing Vital Signs Nursing Vital Signs: Initial Vital Signs Temperature 97.7 F 06/23/17 16:02 Pulse Rate 56 L 06/23/17 16:02 Respiratory Rate 16 06/23/17 16:02 Blood Pressure 146/84 06/23/17 16:02 O2 Sat by Pulse Oximetry 97 06/23/17 16:02 Pain Scale Pain Intensity 0 - Physical Exam General Appearance: no apparent distress, alert Eye Exam: PERRL/EOMI, eyes nml inspection Ears, Nose, Throat Exam: normal ENT inspection, TMs normal, pharynx normal, moist mucous membranes Neck Exam: normal inspection, non-tender, supple, full range of motion Respiratory Exam: normal breath sounds, lungs clear, No respiratory distress Cardiovascular Exam: regular rate/rhythm, normal heart sounds, normal peripheral pulses Gastrointestinal/Abdomen Exam: soft, normal bowel sounds, No tenderness, No mass Back Exam: normal inspection, normal range of motion, No CVA tenderness, No vertebral tenderness Extremity Exam: normal inspection, normal range of motion, pelvis stable Neurologic Exam: alert, oriented x 3, cooperative, normal mood/affect, nml cerebellar function, nml station & gait, sensation nml, No motor deficits Skin Exam: normal color, warm, dry, No rash Lymphatic Exam: No adenopathy SpO2: 97 Oxygen Delivery: Room Air - Course Nursing assessment & vital signs reviewed: Yes Ordered Tests: Active Orders 24 hr Category Date Time Status Nurse First Aid STAT Care 06/23/17 16:11 Active EKG-ER Only STAT Care 06/23/17 16:10 Active IV Insertion STAT Care 06/23/17 16:10 Active NPO (ED) STAT Care 06/23/17 16:10 Active CHEST 1 VIEW (PORTABLE) Stat Exams 06/23/17 16:11 Completed HEAD WITHOUT CONTRAST [CT] Stat Exams 06/23/17 16:11 Completed ABG [ARTERIAL BLOOD GASES] Stat Lab 06/23/17 17:18 Completed ACETAMINOPHEN Stat Lab 06/23/17 16:25 Completed CBC W DIFF Stat Lab 06/23/17 16:25 Completed CMP Stat Lab 06/23/17 16:25 Completed CULTURE,URINE Stat Lab 06/23/17 16:15 Received ETHYL ALCOHOL Stat Lab 06/23/17 16:25 Completed Lactic Acid Stat Lab 06/23/17 16:10 Results Lactic Acid Urgent Lab 06/23/17 17:43 Completed PROTIME WITH INR Stat Lab 06/23/17 16:25 Completed SALICYLATE Stat Lab 06/23/17 16:25 Completed UA W/ MICROSCOPIC Stat Lab 06/23/17 16:15 Completed Urine Triage Profile Stat Lab 06/23/17 16:15 Completed Medication Summary Generic Name Dose Route Start Last Admin Trade Name Freq PRN Reason Stop Dose Admin Potassium Chloride 20 meq in 100 mls @ 50 mls/hr 06/23/17 17:15 06/23/17 17: 44 Potassium Chloride 20 Meq In Water 100ml IV 06/23/17 19:14 50 mls/hr STAT ONE Administration Sodium Chloride 1,000 mls @ 999 mls/hr 06/23/17 17:18 Sodium Chloride 0.9% 1000 Ml IV 06/23/17 18:18 .Q1H1M STA Discontinued Medications Generic Name Dose Route Start Last Admin Trade Name Freq PRN Reason Stop Dose Admin Chlordiazepoxide HCl 25 mg 06/23/17 16:12 06/23/17 17:43 Librium 25 Mg PO 06/23/17 16:13 25 mg STAT ONE Administration Folic Acid 1 mg 06/23/17 16:13 06/23/17 17:43 Folate 1 Mg PO 06/23/17 16:14 1 mg STAT ONE Administration Sodium Chloride 1,000 mls @ 999 mls/hr 06/23/17 16:13 06/23/17 17:30 Sodium Chloride 0.9% 1000 Ml IV 06/23/17 17:13 999 mls/hr .Q1H1M STA Administration Sodium Chloride Confirm 06/23/17 17:25 Sodium Chloride 0.9% 1000 Ml Administered 06/23/17 17:26 Dose 1,000 mls @ ud .ROUTE .STK-MED ONE Potassium Chloride Confirm 06/23/17 17:25 Potassium Chloride 20 Meq In Water 100ml Administered 06/23/17 17:26 Dose 100 mls @ ud IV .STK-MED ONE Multivitamins 1 tab 06/23/17 16:13 06/23/17 17:41 Theragran Multivitamin PO 06/23/17 16:14 1 tab STAT ONE Administration Ondansetron HCl 4 mg 06/23/17 16:10 06/23/17 17:36 Zofran 4 Mg/2 Ml Vial IV 06/23/17 16:11 4 mg STAT ONE Administration Ondansetron HCl Confirm 06/23/17 17:25 Zofran 4 Mg/2 Ml Vial Administered 06/23/17 17:26 Dose 4 mg .ROUTE .STK-MED ONE Thiamine HCl 100 mg 06/23/17 16:13 06/23/17 17:42 Vitamin B-1 100 Mg PO 06/23/17 16:14 100 mg STAT ONE Administration Lab/Rad Data: Laboratory Result Diagrams 06/23/17 16:25 06/23/17 16:25 Laboratory Results 06/23/17 06/23/17 06/23/17 Range/Units 17:43 17:18 17:00 WBC (4.0-10.5) K/mm3 RBC (4.1-5.6) M/mm3 Hgb (12.5-18.0) gm/dl Hct (42-50) % MCV (78-100) fl MCH (26-32) pg MCHC (32-36) g/dl RDW (11.5-14.0) % Plt Count (150-450) K/mm3 MPV (6-9.5) fl Gran % (36.0-66.0) % Lymphocytes % (24.0-44.0) % Monocytes % (0.0-12.0) % Eosinophils % (0.00-5.0) % Basophils % (0.0-0.4) % Basophils # (0-0.4) INR (0.8-3.0) Puncture Site LEFT RADIAL pCO2 47 H (35-45) mmHg pO2 55 L (75-100) mmHg Base Excess 22.4 H (-2.0-2.0) O2 Saturation 88.6 L (94-100) g/dF ABG pH 7.61 H* (7.35-7.45) ABG HCO3 47.2 H* (22-28) ABG O2 Sat (Measured) 94.8 L (95-100) % [facility] Test Yes A-a Gradient 36 a/A Ratio 0.60 Hemoglobin 15.5 Carboxyhemoglobin 5.5 (0.0-6.9) % THgb Methemoglobin 1.0 L (1.4-1.5) % Temperature 37.0 C POC O2 Flow Rate 21 % Sodium (136-145) mEq/L Potassium 2.2 L* (3.5-5.1) mEq/L Chloride (98-107) mEq/L Carbon Dioxide (21-32) mEq/L Anion Gap (5-15) MEQ/L BUN (9-20) mg/dL Creatinine (0.55-1.30) mg/dl Estimated GFR ML/MIN Glucose (70-110) MG/DL Lactic Acid 1.6 (0.4-2.0) Calcium (8.5-10.1) mg/dL Total Bilirubin (0.2-1.0) mg/dL AST (15-37) U/L ALT (12-78) U/L Alkaline Phosphatase (46-116) U/L Ammonia < 17 L (17-32) MMOL/l Serum Total Protein (6.4-8.2) gm/dL Albumin (3.4-5.0) g/dL Ur Collection Type Urine Color (YELLOW) Urine Appearance (CLEAR) Urine pH (5-6) Ur Specific [place] (1.005-1.025) Urine Protein (Negative) Urine Ketones (NEGATIVE) Urine Blood (0-5) Js/ul Urine Nitrite (NEGATIVE) Urine Bilirubin (NEGATIVE) Urine Urobilinogen (0-1) mg/dL Ur Leukocyte Esterase (NEGATIVE) Urine Microscopic RBC (0-2) /HPF Urine Microscopic WBC (0-5) /HPF Ur Epithelial Cells (FEW) /HPF Urine Bacteria (NEGATIVE) /HPF Hyaline Casts (0-2) /LPF Urine Mucus (NEGATIVE) /HPF Urine Culture Reflexed (NO) Urine Glucose (NEGATIVE) mg/dL Salicylates (2.8-20.0) mg/dl Urine Opiates Level (NEGATIVE) Ur Methadone (NEGATIVE) Acetaminophen (10-30) ug/ml Urine Barbiturates (NEGATIVE) Ur Phencyclidine (PCP) (NEGATIVE) Urine Amphetamine (NEGATIVE) U Benzodiazepine Level (NEGATIVE) Urine Cocaine (NEGATIVE) Urine Marijuana (THC) (NEGATIVE) Ethyl Alcohol (0.00-0.01) % Slides for Path Review Specimen Received 06/23/17 06/23/17 06/23/17 Range/Units 16:25 16:25 16:25 WBC 7.7 (4.0-10.5) K/mm3 RBC 4.07 L (4.1-5.6) M/mm3 Hgb 15.3 (12.5-18.0) gm/dl Hct 40.8 L (42-50) % MCV 100.2 H (78-100) fl MCH 37.5 H (26-32) pg MCHC 37.5 H (32-36) g/dl RDW 12.5 (11.5-14.0) % Plt Count 87 L (150-450) K/mm3 MPV 11.8 H (6-9.5) fl Gran % 60.5 (36.0-66.0) % Lymphocytes % 23.9 L (24.0-44.0) % Monocytes % 14.6 H (0.0-12.0) % Eosinophils % 0.9 (0.00-5.0) % Basophils % 0.1 (0.0-0.4) % Basophils # 0.01 (0-0.4) INR 0.94 (0.8-3.0) Puncture Site pCO2 (35-45) mmHg pO2 (75-100) mmHg Base Excess (-2.0-2.0) O2 Saturation (94-100) g/dF ABG pH (7.35-7.45) ABG HCO3 (22-28) ABG O2 Sat (Measured) (95-100) % [facility] Test A-a Gradient a/A Ratio Hemoglobin Carboxyhemoglobin (0.0-6.9) % THgb Methemoglobin (1.4-1.5) % Temperature C POC O2 Flow Rate % Sodium 129 L (136-145) mEq/L Potassium 2.8 L* (3.5-5.1) mEq/L Chloride 81 L (98-107) mEq/L Carbon Dioxide 41.4 H (21-32) mEq/L Anion Gap 10.2 (5-15) MEQ/L BUN 31 H (9-20) mg/dL Creatinine 1.68 H (0.55-1.30) mg/dl Estimated GFR 45 ML/MIN Glucose 126 H (70-110) MG/DL Lactic Acid (0.4-2.0) Calcium 10.5 H (8.5-10.1) mg/dL Total Bilirubin 1.50 H (0.2-1.0) mg/dL AST 204 H (15-37) U/L ALT 177 H (12-78) U/L Alkaline Phosphatase 106 (46-116) U/L Ammonia (17-32) MMOL/l Serum Total Protein 7.7 (6.4-8.2) gm/dL Albumin 3.9 (3.4-5.0) g/dL Ur Collection Type Urine Color (YELLOW) Urine Appearance (CLEAR) Urine pH (5-6) Ur Specific [place] (1.005-1.025) Urine Protein (Negative) Urine Ketones (NEGATIVE) Urine Blood (0-5) Js/ul Urine Nitrite (NEGATIVE) Urine Bilirubin (NEGATIVE) Urine Urobilinogen (0-1) mg/dL Ur Leukocyte Esterase (NEGATIVE) Urine Microscopic RBC (0-2) /HPF Urine Microscopic WBC (0-5) /HPF Ur Epithelial Cells (FEW) /HPF Urine Bacteria (NEGATIVE) /HPF Hyaline Casts (0-2) /LPF Urine Mucus (NEGATIVE) /HPF Urine Culture Reflexed (NO) Urine Glucose (NEGATIVE) mg/dL Salicylates < 2.8 L (2.8-20.0) mg/dl Urine Opiates Level (NEGATIVE) Ur Methadone (NEGATIVE) Acetaminophen < 2.0 L (10-30) ug/ml Urine Barbiturates (NEGATIVE) Ur Phencyclidine (PCP) (NEGATIVE) Urine Amphetamine (NEGATIVE) U Benzodiazepine Level (NEGATIVE) Urine Cocaine (NEGATIVE) Urine Marijuana (THC) (NEGATIVE) Ethyl Alcohol < 0.010 (0.00-0.01) % Slides for Path Review YES Specimen Received 06/23/17 06/23/17 06/23/17 Range/Units 16:15 16:15 16:10 WBC (4.0-10.5) K/mm3 RBC (4.1-5.6) M/mm3 Hgb (12.5-18.0) gm/dl Hct (42-50) % MCV (78-100) fl MCH (26-32) pg MCHC (32-36) g/dl RDW (11.5-14.0) % Plt Count (150-450) K/mm3 MPV (6-9.5) fl Gran % (36.0-66.0) % Lymphocytes % (24.0-44.0) % Monocytes % (0.0-12.0) % Eosinophils % (0.00-5.0) % Basophils % (0.0-0.4) % Basophils # (0-0.4) INR (0.8-3.0) Puncture Site pCO2 (35-45) mmHg pO2 (75-100) mmHg Base Excess (-2.0-2.0) O2 Saturation (94-100) g/dF ABG pH (7.35-7.45) ABG HCO3 (22-28) ABG O2 Sat (Measured) (95-100) % [facility] Test A-a Gradient a/A Ratio Hemoglobin Carboxyhemoglobin (0.0-6.9) % THgb Methemoglobin (1.4-1.5) % Temperature C POC O2 Flow Rate % Sodium (136-145) mEq/L Potassium (3.5-5.1) mEq/L Chloride (98-107) mEq/L Carbon Dioxide (21-32) mEq/L Anion Gap (5-15) MEQ/L BUN (9-20) mg/dL Creatinine (0.55-1.30) mg/dl Estimated GFR ML/MIN Glucose (70-110) MG/DL Lactic Acid 3.2 H (0.4-2.0) Calcium (8.5-10.1) mg/dL Total Bilirubin (0.2-1.0) mg/dL AST (15-37) U/L ALT (12-78) U/L Alkaline Phosphatase (46-116) U/L Ammonia (17-32) MMOL/l Serum Total Protein (6.4-8.2) gm/dL Albumin (3.4-5.0) g/dL Ur Collection Type CLEAN CATCH Urine Color DARK YELLOW (YELLOW) Urine Appearance CLEAR (CLEAR) Urine pH 7.0 (5-6) Ur Specific [place] 1.010 (1.005-1.025) Urine Protein 30 (Negative) Urine Ketones NEGATIVE (NEGATIVE) Urine Blood TRACE NON-HEM (0-5) Js/ul Urine Nitrite NEGATIVE (NEGATIVE) Urine Bilirubin NEGATIVE (NEGATIVE) Urine Urobilinogen NORMAL (0-1) mg/dL Ur Leukocyte Esterase NEGATIVE (NEGATIVE) Urine Microscopic RBC 0-2 (0-2) /HPF Urine Microscopic WBC 2-5 (0-5) /HPF Ur Epithelial Cells MODERATE (FEW) /HPF Urine Bacteria MANY (NEGATIVE) /HPF Hyaline Casts 2-5 (0-2) /LPF Urine Mucus MODERATE (NEGATIVE) /HPF Urine Culture Reflexed YES (NO) Urine Glucose NEGATIVE (NEGATIVE) mg/dL Salicylates (2.8-20.0) mg/dl Urine Opiates Level NEG. (NEGATIVE) Ur Methadone NEG. (NEGATIVE) Acetaminophen (10-30) ug/ml Urine Barbiturates NEG. (NEGATIVE) Ur Phencyclidine (PCP) NEG. (NEGATIVE) Urine Amphetamine NEG. (NEGATIVE) U Benzodiazepine Level NEG. (NEGATIVE) Urine Cocaine NEG. (NEGATIVE) Urine Marijuana (THC) NEG. (NEGATIVE) Ethyl Alcohol (0.00-0.01) % Slides for Path Review Specimen Received 06/23/17 3385 - Progress Progress: improved Progress Note: 06/23/17 18:[address] scan head and CXR are within normal limits. The patient has a K of 2.8, elevated creatinine and low Na of 129. Pt has shown improvement after receiving librium, NS fluids, thiamine, folic acid and MVI. Pt has features of alcohol withdrawal and has been admitted to Dr Mota - Departure Time of Disposition: 18:03 Departure Disposition: In-patient Admission Clinical Impression: Alcohol withdrawal Qualifiers: Complication of substance-induced condition: with delirium Qualified Code(s): F10.231 - Alcohol dependence with withdrawal delirium Condition: Stable Critical Care Time: Yes Critical Care Time(excluding separately billable procedures): 75-104 minutes Referrals: JAKOB MCBRIDE MD [Primary Care Provider] -
[2017-06-23 16:45] LABS: BASOPHIL % 0.1 % (0.0-0.4); Basophil (Absolute #) 0.01 (0-0.4); Eosinophil % 0.9 % (0.00-5.0); Eosinophil (Absolute #) 0.07 (0-0.5); Granulocyte Absolute (ANC) 4.67 (1.4-6.9); Granulocytes % 60.5 % (36.0-66.0); Hematocrit 40.8 % (42-50); Hemoglobin 15.3 gm/dl (12.5-18.0); Lymphocyte (Absolute #) 1.85 (1.0-4.6); Lymphocytes % 23.9 % (24.0-44.0); Mean Cell Volume 100.2 fl (78-100); Mean Corpuscular Hgb Concent. 37.5 g/dl (32-36); Mean Platelet Volume 11.8 fl (6-9.5); Monocyte (Absolute #) 1.13 (0.0-1.3); Monocytes % 14.6 % (0.0-12.0); Platelet Count 87 K/mm3 (150-450); Red Blood Count 4.07 M/mm3 (4.1-5.6); Red Cell Distribution Width 12.5 % (11.5-14.0); White Blood Count 7.7 K/mm3 (4.0-10.5)
[2017-06-23 16:52] LABS: Appearance CLEAR (CLEAR); Bilirubin NEGATIVE (NEGATIVE); Blood TRACE NON-HEM Ery/ul (0-5); Glucose NEGATIVE (NEGATIVE); Ketones NEGATIVE (NEGATIVE); Leukocyte Esterase NEGATIVE (NEGATIVE); Nitrite NEGATIVE (NEGATIVE); Protein,Urine Dip 30 (Negative); Urobilinogen NORMAL mg/dL (0-1)
[2017-06-23 16:57] LABS: Amphetamine,Urine NEG. (NEGATIVE); Barbiturate,Urine NEG. (NEGATIVE); Benzodiazepine,Urine NEG. (NEGATIVE); Cocaine,Urine NEG. (NEGATIVE); Methadone,Urine NEG. (NEGATIVE); Opiate,Urine NEG. (NEGATIVE); PCP,Urine NEG. (NEGATIVE); THC,Urine NEG. (NEGATIVE)
[2017-06-23 17:04] LABS: Bacteria MANY /HPF (NEGATIVE); Epithelial Cells MODERATE /HPF (FEW); Mucus MODERATE /HPF (NEGATIVE)
[2017-06-23 17:10] LABS: ALBUMIN 3.9 g/dL (3.4-5.0); ALKALINE PHOSPHATASE 106 U/L (46-116); ANION GAP 10.2 MEQ/L (5-15); BLOOD UREA NITROGEN 31 mg/dL (9-20); CHLORIDE 81 mEq/L (98-107); Calcium 10.5 mg/dL (8.5-10.1); Carbon Dioxide 41.4 mEq/L (21-32); Creatinine 1 1.68 mg/dl (0.55-1.30); ETHYL ALCOHOL < 0.010 % (0.00-0.01); Glucose 126 MG/DL (70-110); SGOT/AST 204 U/L (15-37); SGPT/ALT 177 U/L (12-78); SODIUM 129 mEq/L (136-145); Total Protein 7.7 gm/dL (6.4-8.2)
[2017-06-23 17:14] LABS: Potassium 2.8 mEq/L (3.5-5.1)
[2017-06-23 17:15] LABS: ACETAMINOPHEN < 2.0 ug/ml (10-30); SALICYLATE < 2.8 mg/dl (2.8-20.0)
[2017-06-23] MEDS ORDERED: POTASSIUM CHLORIDE 20 mEq IN WATER 100ML 20 MEQ/100 ML BAG IV ONE (17:15)
[2017-06-23 17:18] LABS: INR 0.94 (0.8-3.0)
[2017-06-23] MEDS ORDERED: POTASSIUM CHLORIDE 20 mEq IN WATER 100ML 100 ML IV ONE (17:25)
[2017-06-23] MEDS ORDERED: Zofran 4 MG/2 ML VIAL ONE (17:25)
[2017-06-23] MEDS ORDERED: Sodium Chloride 0.9% 1000 ML 1,000 ML ONE (17:25)
[2017-06-23 17:28] LABS: Mean Corpuscular Hemoglobin 37.5 pg (26-32)
[2017-06-23 17:31] LABS: Slide Review 1 YES
[2017-06-23 17:40] LABS: A-aADO2 36; ABG HEMOGLOBIN 15.5; ABG POTASSIUM 2.2 (3.5-5.1); ARTERIAL BLD GAS O2 SATURATION 94.8 % (95-100); ARTERIAL BLOOD GAS BASE EXCESS 22.4 (-2.0-2.0); ARTERIAL BLOOD GAS FIO2 21 %; ARTERIAL BLOOD GAS PCO2 47 mmHg (35-45); ARTERIAL BLOOD GAS PO2 55 mmHg (75-100); ARTERIAL BLOOD GAS pH 7.61 (7.35-7.45); CARBOXYHEMOGLOBIN 5.5 % THgb (0.0-6.9); HCO3- 47.2 (22-28); HGB O2 SAT 88.6 g/dF (94-100)
[2017-06-23 17:41] LABS: ABG SITE LEFT RADIAL; ALLEN TEST OK? Yes
--- NOTE | 2017-06-23 17:55 | XRAY ---
Exam: CT of the head without IV contrast from 06/23/2017. CTDI: 52.34 Comparison: CT of the head without IV contrast from 08/13/2012. Indication: Trauma, patient fell striking front of head, history of past mandible surgery. Technique: Non-IV contrast axial images were obtained through the brain. Reconstructed coronal and sagittal images were created and reviewed. Findings: The ventricles appear within normal limits of size. No focal mass effect or midline shift is seen. No acute intracranial bleed or abnormal extra-axial fluid collection is seen. The thornton matter-white matter interfaces appear unremarkable. No territorial infarct is seen. There is mild prominence of the cortical sulci. I believe this is normal for age. The calvarium of the skull appears intact. No fracture is seen. There is mild mucosal thickening within the posterior ethmoid sinus complex, greater on the left than right. The remainder the paranasal sinuses and mastoid air cells are unremarkable. The middle ear cavities appear grossly normal. Mild atherosclerotic vascular calcification is seen within the carotid siphons. Impression: 1. No acute intracranial bleed or other acute intracranial process is seen. The findings appears similar to 08/13/2012. 2. I do note mild posterior ethmoid sinus disease, left greater than right. This is probably chronic. No air-fluid levels are seen within the paranasal sinuses.
--- NOTE | 2017-06-23 17:57 | XRAY ---
Exam: AP portable chest film from 06/23/2017. Comparison: Frontal chest film from acute abdominal series dated 11/13/2016. Indication: Fall. Report: The heart size and contour are normal. The ngihat and mediastinal structures appear unremarkable. There is adequate inflation of the lungs. No air space infiltrates, vascular congestion, pneumothorax, or pleural fluid is seen. The visualized bones appear unremarkable. Impression: 1. No acute cardiopulmonary disease is seen. This is unchanged from 11/13/2016.
[2017-06-23] MEDS ORDERED: Zofran 4 MG/2 ML VIAL IV PRN (18:05)
[2017-06-23] MEDS: Sodium Chloride 0.9% 1000 ML 1,000 ML IV SCH (18:46)
[2017-06-23] MEDS ORDERED: LIBRIUM 25 MG PO SCH (22:00)
[2017-06-23] MEDS ORDERED: LIBRIUM 25 MG PO PRN (22:36)
[2017-06-23] MEDS ORDERED: COREG 12.5 MG PO ONE (23:00)
[2017-06-24] MEDS: POTASSIUM CHLORIDE 20 mEq IN WATER 100ML 20 MEQ/100 ML BAG IV SCH ×4 (01:50→15:49)
[2017-06-24] MEDS: Librium 10 MG PO PRN ×2 (03:01→05:03)
[2017-06-24] MEDS: Sodium Chloride 0.9% 1000 ML 1,000 ML IV SCH ×3 (03:46→23:16)
[2017-06-24 06:32] LABS: BASOPHIL % 0.2 % (0.0-0.4); Basophil (Absolute #) 0.01 (0-0.4); Eosinophil % 1.2 % (0.00-5.0); Eosinophil (Absolute #) 0.07 (0-0.5); Granulocyte Absolute (ANC) 3.24 (1.4-6.9); Granulocytes % 54.3 % (36.0-66.0); Hemoglobin 12.3 gm/dl (12.5-18.0); Lymphocyte (Absolute #) 1.65 (1.0-4.6); Lymphocytes % 27.7 % (24.0-44.0); Mean Cell Volume 105.4 fl (78-100); Mean Corpuscular Hgb Concent. 35.1 g/dl (32-36); Mean Platelet Volume 12.4 fl (6-9.5); Monocyte (Absolute #) 0.99 (0.0-1.3); Monocytes % 16.6 % (0.0-12.0); Platelet Count 73 K/mm3 (150-450); Red Blood Count 3.32 M/mm3 (4.1-5.6); Red Cell Distribution Width 12.5 % (11.5-14.0)
[2017-06-24] MEDS ORDERED: Haldol 5 MG IM ONE (06:40)
[2017-06-24] MEDS ORDERED: BENADRYL 50 MG/ML IV ONE (06:40)
[2017-06-24 06:53] LABS: ANION GAP 7.3 MEQ/L (5-15); BLOOD UREA NITROGEN 26 mg/dL (9-20); CHLORIDE 92 mEq/L (98-107); Calcium 9.2 mg/dL (8.5-10.1); Carbon Dioxide 38.4 mEq/L (21-32); Creatinine 1 1.26 mg/dl (0.55-1.30); Glucose 131 MG/DL (70-110); Potassium 3.1 mEq/L (3.5-5.1); SODIUM 135 mEq/L (136-145)
[2017-06-24] MEDS: Ativan 20 MG/10 ML MDV*** 40 MG in D5w 100ML Mini Bag 100 ML 80 ML IV SCH ×2 (09:00→22:03)
[2017-06-24 09:12] LABS: Slide Review 1 YES
--- NOTE | 2017-06-24 09:32 | PCM.HP ---
History of Present Illness - Chief Complaint Chief Complaint: etoh withdrawal History of Present Illness: is a 56 year old male who is disoriented, so history is from ER notes and RNs. Family not present currently. He was brought to ER by his son, c/o hallucinations. He is apparently a heavy drinker and had his last alcoholic drink 5d ago. He has apparently had hallucinations multiple times in the past with alcohol withdrawal; he has also had DTs. Overnight he was disoriented, thought he was working in a shop requesting a hammer, trying to get out of bed, etc. He received librium several times with no discernible improvement. He received haldol 5mg IM and benadryl 25mg IV this morning with no change. He has been moved to ICU and is currently on an ativan drip. His son noted pt says he doesn't like ativan because it gives him hallucinations. - Review of Systems All Other Systems: Unable due to condition Medications & Allergies Home Medications: Home Medication List Carvedilol 6.25 mg [Coreg 6.25 MG] 12.5 mg PO BID 02/19/14 [History Confirmed 06/23/17] Cyanocobalamin (Vitamin B-12) [Vitamin B12] 2,500 mcg PO DAILY 11/13/16 [ History Confirmed 06/23/17] Pnv No.95/Ferrous Fum/Folic AC [ Multivitamin Tablet] 1 tablet PO BID [History Confirmed 06/23/17] PANTOPRAZOLE 40 mg Tablet [Protonix 40MG Tablet] 40 mg PO QAM #30 tab [Rx Confirmed 06/23/17] Allergies/Adverse Reactions: Allergies Allergy/AdvReac Type Severity Reaction Status Date / Time No Known Drug Allergies Allergy Verified 06/23/17 16:04 - Past Medical History Past Medical History: Yes Neurological History: No Pertinent History ENT History: No Pertinent History Cardiac History: Hypertension Respiratory History: No Pertinent History Endocrine Medical History: No Pertinent History Musculoskelatal History: Fractures GI Medical History: Other History: No Pertinent History Pyscho-Social History: Other Male Reproductive Disorders: No Pertinent History Comment: dizziness, liver inflammation d/t alcohol intake, alcoholism, broken jaw - Past Surgical History Past Surgical History: Yes Neuro Surgical History: No Pertinent History Cardiac History: No Pertinent History Respiratory Surgery: No Pertinent History GI Surgical History: No Pertinent History Genitourinary Surgical Hx: No Pertinent History Musculskeletal Surgical Hx: Orthopedic Surgery Male Surgical History: No Pertinent History Other Surgical History: tonsiliectomy, surgery on jaw - Social History Smoking Status: Current every day smoker How long have you smoked: 40 years Exposure to second hand smoke: Yes Alcohol: Heavy Drug Use: none - Physical Exam Vital Signs: Vital Signs - 24 hr Temp Pulse Resp BP Pulse Ox 06/24/17 08:00 20 06/24/17 04:00 98.2 F 57 L 18 110/60 95 06/24/17 00:24 98.8 F 61 20 126/59 98 06/23/17 20:46 98.2 F 59 L 18 116/64 96 06/23/17 18:03 97 06/23/17 16:02 97.7 F 56 L 16 146/84 97 Oxygen-Last 24 hours O2 Percentage 2 Liters = 28% General Appearance: no apparent distress, other (in kylie-chair, using pencil and paper) Neurologic Exam: alert, cooperative, other (currently knows he is in the hospital "because I'm loopy." Actually knows the date is June 24, thinks it's Monday (it's Mon) and thinks it's 2013.) Eye Exam: eyes nml inspection Ears, Nose, Throat Exam: moist mucous membranes Neck Exam: normal inspection, non-tender, No lymphadenopathy Respiratory Exam: normal breath sounds, lungs clear, No crackles/rales, No rhonchi, No wheezing Cardiovascular Exam: regular rate/rhythm, normal heart sounds, No murmur Gastrointestinal/Abdomen Exam: soft, normal bowel sounds, No tenderness, No distention, No mass, No guarding, No rebound Extremity Exam: normal inspection, No pedal edema, No swelling Skin Exam: normal color, warm, dry, No rash Results - Labs Lab/Micro Results: Lab Results-Last 24 Hours 06/24/17 06/24/17 06/24/17 Range/Units 01:10 05:20 05:20 WBC 6.0 (4.0-10.5) K/mm3 RBC 3.32 L (4.1-5.6) M/mm3 Hgb 12.3 L (12.5-18.0) gm/dl Hct 35.0 L (42-50) % MCV 105.4 H (78-100) fl MCH 37.0 H (26-32) pg MCHC 35.1 (32-36) g/dl RDW 12.5 (11.5-14.0) % Plt Count 73 L (150-450) K/mm3 MPV 12.4 H (6-9.5) fl Gran % 54.3 (36.0-66.0) % Lymphocytes % 27.7 (24.0-44.0) % Monocytes % 16.6 H (0.0-12.0) % Eosinophils % 1.2 (0.00-5.0) % Basophils % 0.2 (0.0-0.4) % Basophils # 0.01 (0-0.4) Sodium 135 L (136-145) mEq/L Potassium 2.6 L* 3.1 L (3.5-5.1) mEq/L Chloride 92 L (98-107) mEq/L Carbon Dioxide 38.4 H (21-32) mEq/L Anion Gap 7.3 (5-15) MEQ/L BUN 26 H (9-20) mg/dL Creatinine 1.26 (0.55-1.30) mg/dl Estimated GFR > 60 ML/MIN Glucose 131 H (70-110) MG/DL Calcium 9.2 (8.5-10.1) mg/dL Slides for Path Review YES Assessment/Plan (1) Alcohol withdrawal Current Visit: Yes Status: Acute Qualifiers: Complication of substance-induced condition: with delirium Qualified Code(s ): F10.231 - Alcohol dependence with withdrawal delirium Assessment & Plan: His Utox was negative and per family report has not been taking illegal drugs. His vitals are stable. Frankly hallucinating. Pt moved to ICU on ativan drip. I think the patient blames the ativan for hallucinations in error, as he is probably always withdrawing when he gets it. When he is more oriented, will do [facility] consult. Code(s): F10.239 - ALCOHOL DEPENDENCE WITH WITHDRAWAL, UNSPECIFIED (2) Alcohol abuse Current Visit: No Status: Acute Code(s): F10.10 - ALCOHOL ABUSE, UNCOMPLICATED (3) Anemia Current Visit: Yes Status: Acute Qualifiers: Anemia type: other cause Assessment & Plan: likely dilutional; mild. Code(s): D64.9 - ANEMIA, UNSPECIFIED (4) Hypokalemia Current Visit: Yes Status: Acute Assessment & Plan: mild Code(s): E87.6 - HYPOKALEMIA (5) Hyponatremia Current Visit: Yes Status: Acute Assessment & Plan: improved since admission. Code(s): E87.1 - HYPO-OSMOLALITY AND HYPONATREMIA
[2017-06-24 11:03] LABS: Potassium 2.5 mEq/L (3.5-5.1)
[2017-06-24] MEDS: PROTONIX 40 MG IV IV SCH (15:05)
[2017-06-24] MEDS: Klor Con 10 MEQ PO SCH ×2 (15:08→21:32)
[2017-06-25] MEDS ORDERED: Nicoderm CQ 21 MG ONE (02:52)
[2017-06-25] MEDS ORDERED: Nicoderm CQ 21 MG TOP SCH (03:00)
[2017-06-25 05:51] LABS: Hematocrit 35.9 % (42-50); Hemoglobin 12.1 gm/dl (12.5-18.0); Mean Cell Volume 108.1 fl (78-100); Mean Corpuscular Hemoglobin 36.4 pg (26-32); Mean Corpuscular Hgb Concent. 33.7 g/dl (32-36); Mean Platelet Volume 10.8 fl (6-9.5); Platelet Count 92 K/mm3 (150-450); Red Blood Count 3.32 M/mm3 (4.1-5.6); Red Cell Distribution Width 13.1 % (11.5-14.0); White Blood Count 7.6 K/mm3 (4.0-10.5)
[2017-06-25 06:20] LABS: ALKALINE PHOSPHATASE 82 U/L (46-116); ANION GAP 9.2 MEQ/L (5-15); BLOOD UREA NITROGEN 15 mg/dL (9-20); CHLORIDE 103 mEq/L (98-107); Calcium 8.7 mg/dL (8.5-10.1); Carbon Dioxide 31.4 mEq/L (21-32); Creatinine 1 0.85 mg/dl (0.55-1.30); Glucose 99 MG/DL (70-110); SGOT/AST 206 U/L (15-37); SGPT/ALT 228 U/L (12-78); SODIUM 140 mEq/L (136-145); Total Protein 5.9 gm/dL (6.4-8.2)
[2017-06-25 06:24] LABS: Potassium 2.9 mEq/L (3.5-5.1)
[2017-06-25] MEDS ORDERED: POTASSIUM CHLORIDE 20 mEq IN WATER 100ML 20 MEQ/100 ML BAG IV ONE (06:33)
[2017-06-25 08:32] LABS: Slide Review YES
[2017-06-25] MEDS: Klor Con 10 MEQ PO SCH ×3 (09:23→21:04)
[2017-06-25] MEDS: PROTONIX 40 MG IV IV SCH (09:24)
[2017-06-25] MEDS: Sodium Chloride 0.9% 1000 ML 1,000 ML IV SCH ×2 (09:24→19:48)
[2017-06-25] MEDS: COREG 12.5 MG PO SCH ×2 (09:24→21:04)
--- NOTE | 2017-06-25 14:22 | PCM.NOTE ---
Date and Time: 06/25/17 1417 Subjective Assessment: Pt was cooperative and the ativan drip was discontinued about 5 am. He was somewhat sleepy this morning when I examined him. He is disoriented but cooperative, no longer trying to climb out of bed. His parents are present this morning. Did use the urinal this morning. Did tolerate jello and water; swallowing pills. - Review of Systems Constitutional: No Fever Neurological: Other (disoriented) Objective Exam General Appearance: no apparent distress, alert Neurologic Exam: cooperative, disoriented Skin Exam: normal color, warm, dry, No rash Respiratory Exam: normal breath sounds, lungs clear, No crackles/rales, No rhonchi, No wheezing Cardiovascular Exam: regular rate/rhythm, normal heart sounds, No murmur Gastrointestinal/Abdomen Exam: soft, normal bowel sounds, No tenderness, No mass , No rebound Extremity Exam: normal inspection, No pedal edema, No swelling OBJECTIVE DATA Vital Signs: Vital Signs - 24 hr Temp Pulse Resp BP Pulse Ox 06/25/17 14:00 62 21 124/75 95 06/25/17 11:44 67 06/25/17 11:43 97.1 F 67 21 113/67 95 06/25/17 10:00 69 22 128/77 95 06/25/17 08:00 97.7 F 66 18 128/77 95 06/25/17 06:00 71 19 156/80 98 06/25/17 04:00 97.5 F 68 23 136/78 95 06/25/17 03:52 64 06/25/17 02:00 66 18 139/78 95 06/25/17 00:00 59 L 06/24/17 22:38 58 L 16 132/76 94 L 06/24/17 20:00 97.9 F 58 L 15 118/68 95 06/24/17 15:45 55 L 06/24/17 15:44 97.8 F 55 L 14 110/64 95 Oxygen-Last 24 hours O2 Percentage 2 Liters = 28% Pain Assessment - Last Documented Pain Intensity 0 Pain Scale Used 0-10 Pain Scale Intake and Output: Intake & Output 06/23/17 06/24/17 06/25/17 06/26/17 11:59 11:59 11:59 11:59 Intake Total 1971 2963 Output Total 950 950 Balance 1021 2012 Weight 62.6 kg 61 kg Lab Results: Lab Results-Last 24 Hours 06/24/17 06/25/17 06/25/17 Range/Units 21:50 05:32 05:32 WBC 7.6 (4.0-10.5) K/mm3 RBC 3.32 L (4.1-5.6) M/mm3 Hgb 12.1 L (12.5-18.0) gm/dl Hct 35.9 L (42-50) % MCV 108.1 H (78-100) fl MCH 36.4 H (26-32) pg MCHC 33.7 (32-36) g/dl RDW 13.1 (11.5-14.0) % Plt Count 92 L (150-450) K/mm3 MPV 10.8 H (6-9.5) fl Sodium 140 (136-145) mEq/L Potassium 3.3 L 2.9 L* (3.5-5.1) mEq/L Chloride 103 (98-107) mEq/L Carbon Dioxide 31.4 (21-32) mEq/L Anion Gap 9.2 (5-15) MEQ/L BUN 15 (9-20) mg/dL Creatinine 0.85 (0.55-1.30) mg/dl Estimated GFR > 60 ML/MIN Glucose 99 (70-110) MG/DL Calcium 8.7 (8.5-10.1) mg/dL Magnesium (1.8-2.4) mg/dL Total Bilirubin 1.00 (0.2-1.0) mg/dL AST 206 H (15-37) U/L ALT 228 H (12-78) U/L Alkaline Phosphatase 82 (46-116) U/L Serum Total Protein 5.9 L (6.4-8.2) gm/dL Albumin 3.0 L (3.4-5.0) g/dL Slides for Path Review YES 06/25/17 06/25/17 Range/Units 05:32 11:04 WBC (4.0-10.5) K/mm3 RBC (4.1-5.6) M/mm3 Hgb (12.5-18.0) gm/dl Hct (42-50) % MCV (78-100) fl MCH (26-32) pg MCHC (32-36) g/dl RDW (11.5-14.0) % Plt Count (150-450) K/mm3 MPV (6-9.5) fl Sodium (136-145) mEq/L Potassium 3.0 L* (3.5-5.1) mEq/L Chloride (98-107) mEq/L Carbon Dioxide (21-32) mEq/L Anion Gap (5-15) MEQ/L BUN (9-20) mg/dL Creatinine (0.55-1.30) mg/dl Estimated GFR ML/MIN Glucose (70-110) MG/DL Calcium (8.5-10.1) mg/dL Magnesium 2.0 (1.8-2.4) mg/dL Total Bilirubin (0.2-1.0) mg/dL AST (15-37) U/L ALT (12-78) U/L Alkaline Phosphatase (46-116) U/L Serum Total Protein (6.4-8.2) gm/dL Albumin (3.4-5.0) g/dL Slides for Path Review Assessment/Plan (1) Alcohol withdrawal Current Visit: Yes Status: Acute Qualifiers: Complication of substance-induced condition: with delirium Qualified Code(s ): F10.231 - Alcohol dependence with withdrawal delirium Assessment & Plan: Off the ativan drip. I have ordered scheduled ativan, 1.5mg IV, q4h for now. Code(s): F10.239 - ALCOHOL DEPENDENCE WITH WITHDRAWAL, UNSPECIFIED (2) Alcohol abuse Current Visit: No Status: Acute Assessment & Plan: Discussed with parents that this is a serious health issue,would like him to consult with [facility] before discharge, mom states, "he won't do it." Code(s): F10.10 - ALCOHOL ABUSE, UNCOMPLICATED (3) Anemia Current Visit: Yes Status: Acute Qualifiers: Anemia type: other cause Assessment & Plan: mild, could be dilutional. Code(s): D64.9 - ANEMIA, UNSPECIFIED (4) Hypokalemia Current Visit: Yes Status: Acute Assessment & Plan: improving. This morning was 2.9, repleted IV, now 3 - will wait and see how it is in the morning after taking 20 mEq po TID today. Code(s): E87.6 - HYPOKALEMIA (5) Hyponatremia Current Visit: Yes Status: Acute Assessment & Plan: resolved. Code(s): E87.1 - HYPO-OSMOLALITY AND HYPONATREMIA
[2017-06-25] MEDS: Ativan 2 MG/1 ML VIAL IV SCH ×3 (14:49→19:42)
[2017-06-25] MEDS: Ativan 20 MG/10 ML MDV*** 40 MG in D5w 100ML Mini Bag 100 ML 80 ML IV SCH (19:35)
[2017-06-26] MEDS: Ativan 2 MG/1 ML VIAL IV SCH ×6 (00:01→20:56)
[2017-06-26] MEDS: Sodium Chloride 0.9% 1000 ML 1,000 ML IV SCH ×2 (06:11→16:21)
[2017-06-26] MEDS: Nicoderm CQ 21 MG TOP SCH (06:18)
[2017-06-26 06:33] LABS: Hematocrit 35.6 % (42-50); Hemoglobin 11.9 gm/dl (12.5-18.0); Mean Cell Volume 108.5 fl (78-100); Mean Corpuscular Hgb Concent. 33.4 g/dl (32-36); Mean Platelet Volume 11.3 fl (6-9.5); Platelet Count 124 K/mm3 (150-450); Red Blood Count 3.28 M/mm3 (4.1-5.6); Red Cell Distribution Width 13.4 % (11.5-14.0); White Blood Count 6.7 K/mm3 (4.0-10.5)
[2017-06-26 06:36] LABS: Mean Corpuscular Hemoglobin 36.2 pg (26-32)
[2017-06-26 07:01] LABS: ALBUMIN 2.7 g/dL (3.4-5.0); ALKALINE PHOSPHATASE 83 U/L (46-116); ANION GAP 11.4 MEQ/L (5-15); BLOOD UREA NITROGEN 9 mg/dL (9-20); CHLORIDE 108 mEq/L (98-107); Calcium 8.8 mg/dL (8.5-10.1); Creatinine 1 0.82 mg/dl (0.55-1.30); Glucose 98 MG/DL (70-110); Potassium 3.7 mEq/L (3.5-5.1); SGOT/AST 162 U/L (15-37); SGPT/ALT 217 U/L (12-78); SODIUM 142 mEq/L (136-145); Total Protein 5.8 gm/dL (6.4-8.2)
--- NOTE | 2017-06-26 08:54 | PCM.NOTE ---
Date and Time: 06/26/17 0853 Subjective Assessment: patient improving, taking some po and has no hallucinations this morning. still receiving scheduled IV ativan. Objective Exam General Appearance: no apparent distress, thin Skin Exam: normal color, warm, dry Respiratory Exam: normal breath sounds, lungs clear, No respiratory distress Cardiovascular Exam: regular rate/rhythm Gastrointestinal/Abdomen Exam: soft, No tenderness, No mass Extremity Exam: normal inspection, normal range of motion OBJECTIVE DATA Vital Signs: Vital Signs - 24 hr Temp Pulse Resp BP Pulse Ox 06/26/17 04:00 98.6 F 68 17 149/83 96 06/26/17 00:00 98.4 F 63 18 128/75 98 06/25/17 19:26 98.3 F 68 23 126/87 97 06/25/17 15:48 71 06/25/17 15:45 98.0 F 71 20 124/75 96 06/25/17 14:00 62 21 124/75 95 06/25/17 11:44 67 06/25/17 11:43 97.1 F 67 21 113/67 95 06/25/17 10:00 69 22 128/77 95 Pain Assessment - Last Documented Pain Intensity 0 Pain Scale Used 0-10 Pain Scale Intake and Output: Intake & Output 06/23/17 06/24/17 06/25/17 06/26/17 11:59 11:59 11:59 11:59 Intake Total 1971 2963 2724 Output Total 950 950 750 Balance 1021 2012 1973 Weight 62.6 kg 61 kg 61.1 kg Lab Results: Lab Results-Last 24 Hours 06/25/17 06/26/17 06/26/17 Range/Units 11:04 06:17 06:17 WBC 6.7 (4.0-10.5) K/mm3 RBC 3.28 L (4.1-5.6) M/mm3 Hgb 11.9 L (12.5-18.0) gm/dl Hct 35.6 L (42-50) % MCV 108.5 H (78-100) fl MCH 36.2 H (26-32) pg MCHC 33.4 (32-36) g/dl RDW 13.4 (11.5-14.0) % Plt Count 124 L (150-450) K/mm3 MPV 11.3 H (6-9.5) fl Sodium 142 (136-145) mEq/L Potassium 3.0 L* 3.7 (3.5-5.1) mEq/L Chloride 108 H (98-107) mEq/L Carbon Dioxide 26.0 (21-32) mEq/L Anion Gap 11.4 (5-15) MEQ/L BUN 9 (9-20) mg/dL Creatinine 0.82 (0.55-1.30) mg/dl Estimated GFR > 60 ML/MIN Glucose 98 (70-110) MG/DL Calcium 8.8 (8.5-10.1) mg/dL Total Bilirubin 0.80 (0.2-1.0) mg/dL AST 162 H (15-37) U/L ALT 217 H (12-78) U/L Alkaline Phosphatase 83 (46-116) U/L Serum Total Protein 5.8 L (6.4-8.2) gm/dL Albumin 2.7 L (3.4-5.0) g/dL Assessment/Plan (1) Alcohol withdrawal Current Visit: Yes Status: Acute Qualifiers: Complication of substance-induced condition: with delirium Qualified Code(s ): F10.231 - Alcohol dependence with withdrawal delirium Assessment & Plan: improving, will attempt to wean ativan scheduled dose now and observe. discussed need for further treatment beyond hospital stay Code(s): F10.239 - ALCOHOL DEPENDENCE WITH WITHDRAWAL, UNSPECIFIED (2) Hypokalemia Current Visit: Yes Status: Acute Code(s): E87.6 - HYPOKALEMIA
[2017-06-26] MEDS: VITAMIN B-1 100 MG PO SCH (10:20)
[2017-06-26] MEDS: Klor Con 10 MEQ PO SCH ×3 (10:21→21:01)
[2017-06-26] MEDS: COREG 12.5 MG PO SCH ×2 (10:21→21:02)
[2017-06-26] MEDS: PROTONIX 40 MG IV IV SCH (10:22)
[2017-06-27] MEDS: Ativan 2 MG/1 ML VIAL IV SCH ×2 (01:45→05:34)
[2017-06-27] MEDS: Sodium Chloride 0.9% 1000 ML 1,000 ML IV SCH ×2 (02:19→23:56)
[2017-06-27] MEDS: Nicoderm CQ 21 MG TOP SCH (05:34)
[2017-06-27 05:36] LABS: BASOPHIL % 0.2 % (0.0-0.4); Basophil (Absolute #) 0.01 (0-0.4); Eosinophil % 1.7 % (0.00-5.0); Eosinophil (Absolute #) 0.11 (0-0.5); Granulocyte Absolute (ANC) 3.34 (1.4-6.9); Granulocytes % 51.8 % (36.0-66.0); Hematocrit 33.8 % (42-50); Hemoglobin 11.2 gm/dl (12.5-18.0); Lymphocyte (Absolute #) 1.62 (1.0-4.6); Lymphocytes % 25.1 % (24.0-44.0); Mean Cell Volume 110.1 fl (78-100); Mean Corpuscular Hgb Concent. 33.1 g/dl (32-36); Mean Platelet Volume 11.5 fl (6-9.5); Monocyte (Absolute #) 1.37 (0.0-1.3); Monocytes % 21.2 % (0.0-12.0); Platelet Count 157 K/mm3 (150-450); Red Blood Count 3.07 M/mm3 (4.1-5.6); Red Cell Distribution Width 13.8 % (11.5-14.0); White Blood Count 6.5 K/mm3 (4.0-10.5)
[2017-06-27 05:45] LABS: Mean Corpuscular Hemoglobin 36.4 pg (26-32)
[2017-06-27 06:01] LABS: ALBUMIN 2.8 g/dl (3.5-5.0); ALKALINE PHOSPHATASE 73 U/L (38-126); BLOOD UREA NITROGEN 10 mg/dl (9-20); CHLORIDE 108 mEq/L (98-107); Calcium 8.9 mg/dl (8.4-10.2); Carbon Dioxide 27 mmol/L (22-30); Creatinine 1 0.77 mg/dl (0.66-1.25); Glucose 88 mg/dL (74-106); Potassium 4.3 mmol/L (3.5-5.1); SGOT/AST 105 U/L (17-59); SGPT/ALT 165 U/L (0-50); SODIUM 140 mmol/L (137-145)
[2017-06-27] MEDS ORDERED: Ativan 1 MG PO PRN (08:42)
--- NOTE | 2017-06-27 08:45 | PCM.NOTE ---
Date and Time: 06/27/17 0844 Subjective Assessment: patient feeling better, feels drowsy from ativan but no new complaints. tolerating po well, no hallucinations. Objective Exam General Appearance: thin Skin Exam: normal color, warm, dry Respiratory Exam: normal breath sounds, lungs clear, No respiratory distress Cardiovascular Exam: regular rate/rhythm, normal heart sounds Gastrointestinal/Abdomen Exam: soft, No tenderness, No mass Extremity Exam: normal inspection, normal range of motion OBJECTIVE DATA Vital Signs: Vital Signs - 24 hr Temp Pulse Resp BP Pulse Ox 06/27/17 07:04 97.5 F 69 18 114/69 99 06/27/17 04:00 98.0 F 72 18 149/69 99 06/27/17 00:00 98.4 F 68 18 124/58 95 06/26/17 20:00 98.0 F 72 18 121/63 93 L 06/26/17 16:00 97.7 F 69 15 123/74 06/26/17 11:33 97.7 F 69 17 118/71 98 Pain Assessment - Last Documented Pain Intensity 0 Pain Scale Used 0-10 Pain Scale Intake and Output: Intake & Output 06/24/17 06/25/17 06/26/17 06/27/17 11:59 11:59 11:59 11:59 Intake Total 1971 2963 2724 3283 Output Total 950 822 440 6645 Balance 1021 2012 1974 1133 Weight 62.6 kg 61 kg 61.1 kg 61.2 kg Lab Results: Lab Results-Last 24 Hours 06/27/17 06/27/17 Range/Units 05:00 05:00 WBC 6.5 (4.0-10.5) K/mm3 RBC 3.07 L (4.1-5.6) M/mm3 Hgb 11.2 L (12.5-18.0) gm/dl Hct 33.8 L (42-50) % MCV 110.1 H (78-100) fl MCH 36.4 H (26-32) pg MCHC 33.1 (32-36) g/dl RDW 13.8 (11.5-14.0) % Plt Count 157 (150-450) K/mm3 MPV 11.5 H (6-9.5) fl Gran % 51.8 (36.0-66.0) % Lymphocytes % 25.1 (24.0-44.0) % Monocytes % 21.2 H (0.0-12.0) % Eosinophils % 1.7 (0.00-5.0) % Basophils % 0.2 (0.0-0.4) % Basophils # 0.01 (0-0.4) Sodium 140 (137-145) mmol/L Potassium 4.3 (3.5-5.1) mmol/L Chloride 108 H (98-107) mEq/L Carbon Dioxide 27 (22-30) mmol/L Anion Gap 10.0 MEQ/L BUN 10 (9-20) mg/dl Creatinine 0.77 (0.66-1.25) mg/dl Estimated GFR > 60 ML/MIN Glucose 88 (74-106) mg/dL Calcium 8.9 (8.4-10.2) mg/dl Magnesium 1.7 (1.6-2.3) mg/dl Total Bilirubin 0.40 (0.2-1.3) mg/d? AST 105 H (17-59) U/L ALT 165 H (0-50) U/L Alkaline Phosphatase 73 (38-126) U/L Serum Total Protein 5.0 L (6.3-8.2) mg/dl Albumin 2.8 L (3.5-5.0) g/dl Multi-Disciplinary Progress Notes: Multi-Disciplinary Progress Notes 06/26/17 12:00 (created 06/26/17 14:46) Case Management Note by Maryana Nicholson PLAN TO RETURN HOME TO PRE EPISODIC LEVEL OF [facility]. HISTORY ALCOHOL ABUSE. POSITIVE FAMILY SUPPORT SYSTEM, FAMILY AT BEDSIDE. PT IS NORMALLY INDEPENDENT WITH ALL ADL'S AND DECLINED ADDNL NEEDS FOR DISCHARGE. Initialized on 06/26/17 14:46 - END OF NOTE Assessment/Plan (1) Alcohol withdrawal Current Visit: Yes Status: Acute Qualifiers: Complication of substance-induced condition: with delirium Qualified Code(s ): F10.231 - Alcohol dependence with withdrawal delirium Assessment & Plan: d/c scheduled ativan, place on po ativan based off of CIWA score. patient not agreeable to going back to [place], didn't think it was a good fit. prefers to do treatment locally as an outpatient because he wants to be able to work and be home etc, will consult [facility]. Code(s): F10.239 - ALCOHOL DEPENDENCE WITH WITHDRAWAL, UNSPECIFIED (2) Hypokalemia Current Visit: Yes Status: Acute Code(s): E87.6 - HYPOKALEMIA
[2017-06-27] MEDS: COREG 12.5 MG PO SCH ×2 (09:50→21:37)
[2017-06-27] MEDS: VITAMIN B-1 100 MG PO SCH (09:50)
[2017-06-27] MEDS: PROTONIX 40 MG IV IV SCH (09:50)
[2017-06-27] MEDS: Klor Con 10 MEQ PO SCH ×3 (09:50→21:37)
[2017-06-28 04:59] VITALS: O2SAT 98
[2017-06-28 06:16] LABS: BASOPHIL % 0.3 % (0.0-0.4); Basophil (Absolute #) 0.02 (0-0.4); Eosinophil % 1.3 % (0.00-5.0); Eosinophil (Absolute #) 0.09 (0-0.5); Granulocyte Absolute (ANC) 3.56 (1.4-6.9); Granulocytes % 52.7 % (36.0-66.0); Hematocrit 36.4 % (42-50); Hemoglobin 12.1 gm/dl (12.5-18.0); Lymphocyte (Absolute #) 1.87 (1.0-4.6); Lymphocytes % 27.7 % (24.0-44.0); Mean Corpuscular Hgb Concent. 33.2 g/dl (32-36); Mean Platelet Volume 10.8 fl (6-9.5); Monocyte (Absolute #) 1.22 (0.0-1.3); Platelet Count 215 K/mm3 (150-450); Red Blood Count 3.28 M/mm3 (4.1-5.6); White Blood Count 6.8 K/mm3 (4.0-10.5)
[2017-06-28 06:20] LABS: Mean Corpuscular Hemoglobin 36.8 pg (26-32)
[2017-06-28 06:38] LABS: ALBUMIN 3.3 g/dl (3.5-5.0); ALKALINE PHOSPHATASE 83 U/L (38-126); ANION GAP 12.1 MEQ/L; BLOOD UREA NITROGEN 9 mg/dl (9-20); CHLORIDE 105 mEq/L (98-107); Calcium 9.4 mg/dl (8.4-10.2); Carbon Dioxide 28 mmol/L (22-30); Creatinine 1 0.82 mg/dl (0.66-1.25); Glucose 103 mg/dL (74-106); Potassium 4.7 mmol/L (3.5-5.1); SGOT/AST 70 U/L (17-59); SGPT/ALT 144 U/L (0-50); SODIUM 140 mmol/L (137-145)
[2017-06-28] MEDS: Nicoderm CQ 21 MG TOP SCH (06:38)
[2017-06-28 07:23] VITALS: BP 194/97; PULSE 68
[2017-06-28] MEDS ORDERED: APRESOLINE 20 MG/ML INJ IV ONE (07:25)
[2017-06-28] MEDS: PROTONIX 40 MG IV IV SCH (07:44)
[2017-06-28] MEDS: Klor Con 10 MEQ PO SCH (07:44)
[2017-06-28] MEDS: VITAMIN B-1 100 MG PO SCH (07:45)
[2017-06-28] MEDS: COREG 12.5 MG PO SCH (07:45)
--- NOTE | 2017-06-28 07:48 | PCM.DS ---
Discharge Summary Date of Admission: 06/23/17 19:50 Admitting Physician: AISHA SOFIA Primary Care Provider: JAKOB MCBRIDE Allergies Allergies No Known Drug Allergies Allergy (Verified 06/23/17 16:04) Hospital Summary - Hospital Course Hospital Course: patient was admitted with alcohol detox, has longstanding recurrent problems with alcoholism. has been to [facility] in the past. He is doing well at the time of discharge, didn't require any ativan since yesterday and shows no signs of withdrawal. he declines referral for inpatient rehab, wants to do something locally as an outpatient which he has declined to do in the past. - Vitals & Intake/Output Vital Signs: Vital Signs Temperature 98.3 F 06/28/17 07:23 Pulse Rate 68 06/28/17 07:23 Respiratory Rate 18 06/28/17 07:23 Blood Pressure 194/97 06/28/17 07:23 O2 Sat by Pulse Oximetry 98 06/28/17 07:23 Oxygen-Last Documented O2 Percentage 2 Liters = 28% Intake & Output: Intake & Output 06/25/17 06/26/17 06/27/17 06/28/17 11:59 11:59 11:59 11:59 Intake Total 2963 2724 3283 2605 Output Total 939 762 1484 600 Balance 2012 1973 1132004 Weight 61 kg 61.1 kg 61.2 kg 61.9 kg - Lab Result Diagrams: 06/28/17 05:30 06/28/17 05:30 Lab Results-Last 24 Hrs: Lab Results-Last 24 Hours 06/28/17 06/28/17 Range/Units 05:30 05:30 WBC 6.8 (4.0-10.5) K/mm3 RBC 3.28 L (4.1-5.6) M/mm3 Hgb 12.1 L (12.5-18.0) gm/dl Hct 36.4 L (42-50) % MCV 111.0 H (78-100) fl MCH 36.8 H (26-32) pg MCHC 33.2 (32-36) g/dl RDW 14.0 (11.5-14.0) % Plt Count 215 (150-450) K/mm3 MPV 10.8 H (6-9.5) fl Gran % 52.7 (36.0-66.0) % Lymphocytes % 27.7 (24.0-44.0) % Monocytes % 18.0 H (0.0-12.0) % Eosinophils % 1.3 (0.00-5.0) % Basophils % 0.3 (0.0-0.4) % Basophils # 0.02 (0-0.4) Sodium 140 (137-145) mmol/L Potassium 4.7 (3.5-5.1) mmol/L Chloride 105 (98-107) mEq/L Carbon Dioxide 28 (22-30) mmol/L Anion Gap 12.1 MEQ/L BUN 9 (9-20) mg/dl Creatinine 0.82 (0.66-1.25) mg/dl Estimated GFR > 60 ML/MIN Glucose 103 (74-106) mg/dL Calcium 9.4 (8.4-10.2) mg/dl Magnesium 1.5 L (1.6-2.3) mg/dl Total Bilirubin 0.50 (0.2-1.3) mg/d? AST 70 H (17-59) U/L ALT 144 H (0-50) U/L Alkaline Phosphatase 83 (38-126) U/L Serum Total Protein 6.0 L (6.3-8.2) mg/dl Albumin 3.3 L (3.5-5.0) g/dl - Procedures and Test Procedures and Tests throughout Hospitalization: Therapy Orders & Screens 06/23/17 21:07 Smoking Cessation Education ONCE Comment: Diagnosis: alcohol withdrawal Smoking Status: Current every day smoker How long have you smoked: 40 years Have you smoked in the past 12 months: Yes: 30 yrs of smoking Approximately how many cigarettes per day: 20 Do you dip or chew tobacco: No Discharge Exam General Appearance: no apparent distress, alert Skin Exam: normal color, warm, dry Neck Exam: normal inspection, non-tender, supple, full range of motion Respiratory Exam: normal breath sounds, lungs clear, No respiratory distress Cardiovascular Exam: regular rate/rhythm, normal heart sounds Gastrointestinal/Abdomen Exam: soft, No tenderness, No mass Extremity Exam: normal inspection, normal range of motion Final Diagnosis/Problem List - Final Discharge Diagnosis/Problem (1) Alcohol withdrawal Current Visit: Yes Status: Acute (2) Hypokalemia Current Visit: Yes Status: Acute - Discharge Disposition: Home, Self-Care Condition: Stable Prescriptions: Continue Carvedilol 6.25 mg [Coreg 6.25 MG] 12.5 mg PO BID Pnv No.95/Ferrous Fum/Folic AC [ Multivitamin Tablet] 1 tablet PO BID Cyanocobalamin (Vitamin B-12) [Vitamin B12] 2,500 mcg PO DAILY PANTOPRAZOLE 40 mg Tablet [Protonix 40MG Tablet] 40 mg PO QAM #30 tab Additional Instructions: Follow up with [facility] in [place], [place] on July 03, 2017 at 9:30. Follow up with: JAKOB MCBRIDE MD [Primary Care Provider] - 1 Week
== END 2017-06-28 09:36 | disposition home or self-care (01) | DRG 897 ==
LOC: ED 15:51 → MED SURG 19:50 → ICU 06-24 09:20 → MED SURG 06-26 16:46
PROVIDERS: ADMIT Family Medicine; ATTEND Family Medicine
DX: F10.231 Alcohol dependence with withdrawal delirium (principal); E87.1 Hypo-osmolality and hyponatremia; E87.6 Hypokalemia; I10 Essential (primary) hypertension; F17.200 Nicotine dependence, unspecified, uncomplicated; F10.10 Alcohol abuse, uncomplicated; D64.9 Anemia, unspecified
CPT/HCPCS: 36000; 36415; 36600; 70450; 71045; 80048; 80053; 80307; 81000; 82140; 82375; 82803; 83605; 83735; 84132; 85025; 85027; 85610; 87086; 93005; 93041; 96374; 99285; G0480; G0481; J0360; J1200; J1630; J2060; J2405; J3480; A9270-GY

== ENCOUNTER 2018-05-25 14:43 | Inpatient (IN) | payer BC ==
[2018-05-25] MEDS ORDERED: LIBRIUM 25 MG PO ONE (16:09)
[2018-05-25] MEDS ORDERED: Ativan 2 MG/1 ML VIAL IV ONE (16:09)
[2018-05-25] MEDS ORDERED: Ativan 2 MG/1 ML VIAL ONE (16:15)
[2018-05-25] MEDS ORDERED: Vitamins For Infusion 10 ML INJECTION*** 10 ML, THIAMINE 200 MG/2 ML*** 100 MG, FOLNATE... IV SCH ×4 (16:15)
[2018-05-25 16:17] LABS: BASOPHIL % 0.4 % (0.0-0.4); Basophil (Absolute #) 0.04 (0-0.4); Granulocyte Absolute (ANC) 6.73 (1.4-6.9); Granulocytes % 70.4 % (36.0-66.0); Hematocrit 41.1 % (42-50); Hemoglobin 14.3 gm/dl (12.5-18.0); Lymphocytes % 16.7 % (24.0-44.0); Mean Cell Volume 108.7 fl (78-100); Mean Corpuscular Hemoglobin 37.8 pg (26-32); Mean Corpuscular Hgb Concent. 34.8 g/dl (32-36); Mean Platelet Volume 10.8 fl (6-9.5); Monocytes % 11.5 % (0.0-12.0); Platelet Count 56 K/mm3 (150-450); Red Blood Count 3.78 M/mm3 (4.1-5.6); Red Cell Distribution Width 12.6 % (11.5-14.0); White Blood Count 9.6 K/mm3 (4.0-10.5)
[2018-05-25 16:20] LABS: INR 0.87 (0.8-3.0); PROTIME 10.1 SECONDS (8.83-12.87)
[2018-05-25 16:21] LABS: ALKALINE PHOSPHATASE 154 U/L (38-126); AMYLASE 100 U/L (30-110); ANION GAP 33.9 MEQ/L (5-15); BLOOD UREA NITROGEN 22 mg/dL (9-20); CHLORIDE 90 mmol/L (98-107); Calcium 9.8 mg/dL (8.4-10.2); Creatinine 1 0.96 mg/dL (0.66-1.25); ETHYL ALCOHOL 217 mg/dL (0-10); Glucose 83 mg/dL (74-106); LIPASE 307 U/L (23-300); MAGNESIUM 1.6 mg/dL (1.6-2.3); Potassium 4.4 mmol/L (3.5-5.1); SGOT/AST 164 U/L (17-59); SGPT/ALT 105 U/L (0-50); SODIUM 136 mmol/L (137-145)
[2018-05-25 16:26] LABS: Carbon Dioxide 17 mmol/L (22-30)
[2018-05-25 16:33] LABS: Slide Review 1 YES
[2018-05-25] MEDS ORDERED: Levofloxacin 500MG/100ML D5W 500 MG/100 ML BAG IV STA (16:40)
--- NOTE | 2018-05-25 16:44 | XRAY ---
Indication: Cough and fatigue. Comparison: June 23, 2017. Portable chest again demonstrates normal heart and lungs. Bony thorax intact with new healing nondisplaced left 8 rib fracture.
[2018-05-25] MEDS ORDERED: Levofloxacin 500MG/100ML D5W 500 MG/100 ML BAG IV ONE (16:49)
[2018-05-25] MEDS ORDERED: COREG 12.5 MG PO STA (17:40)
--- NOTE | 2018-05-25 17:45 | ERPHSYRPT ---
- History of Present Illness Time Seen by Provider: 05/25/18 15:15 Source: patient Exam Limitations: clinical condition Patient Subjective Stated Complaint: pt here for weakness, not eating, cough, vomiting today Triage Nursing Assessment: pt alert, resp easy, skin w/d/p. has congested sounding cough, . chest clear, no edema. pt smells of alcohol. Physician History: PATIENT WITH A HISTORY OF CHRONIC ALCOHOL ABUSE, ALCOHOL WITHDRAWAL WITH HALLUCINATIONS, COMPLAINS OF GENERALIZED WEAKNESS, FREQUENT EMESIS, PRODUCTIVE COUGH AND POOR APPETITE. HE INGEST ALCOHOL DAILY WHISKEY, WITH VERY LITTLE FOOD INTAKE. DENIES ABDOMINAL PAIN, DYSPNEA, FEVER, CHILLS OR DIARRHEA. DENIES TREMORS, VISUAL OR AUDITORY HALLUCINATIONS. Timing/Duration: day(s) Severity: moderate Associated Symptoms: vomiting, cough, loss of appetite Allergies/Adverse Reactions: No Known Drug Allergies Allergy (Verified 05/25/18 15:09) Home Medications: Carvedilol 6.25 mg [Coreg 6.25 MG] 12.5 mg PO BID 02/19/14 [History] Cyanocobalamin (Vitamin B-12) [Vitamin B12] 2,500 mcg PO DAILY 11/13/16 [History ] Pnv No.95/Ferrous Fum/Folic AC [ Multivitamin Tablet] 1 tablet PO BID [History] Hx Tetanus, Diphtheria Vaccination/Date Given: No Hx Influenza Vaccination/Date Given: No Hx Pneumococcal Vaccination/Date Given: No Immunizations Up to Date: Yes - Review of Systems Constitutional: Weakness Eyes: No Symptoms Ears, Nose, & Throat: No Symptoms Respiratory: Cough (PRODUCTIVE), No Dyspnea Cardiac: No Symptoms, No Chest Pain, No Edema, No Syncope Abdominal/Gastrointestinal: Abdominal Pain, Nausea, Vomiting, No Diarrhea Genitourinary Symptoms: No Symptoms, No Dysuria Musculoskeletal: No Symptoms, No Back Pain, No Neck Pain Skin: No Symptoms, No Rash Neurological: No Dizziness, No Focal Weakness, No Sensory Changes Psychological: No Symptoms Endocrine: No Symptoms All Other Systems: Reviewed and Negative - Past Medical History Pertinent Past Medical History: Yes Neurological History: No Pertinent History ENT History: No Pertinent History Cardiac History: Hypertension Respiratory History: No Pertinent History Endocrine Medical History: No Pertinent History Musculoskeletal History: Fractures GI Medical History: Other History: No Pertinent History Psycho-Social History: Other Male Reproductive Disorders: No Pertinent History Other Medical History: dizziness, liver inflammation d/t alcohol intake, alcoholism, broken jaw - Past Surgical History Past Surgical History: Yes Neuro Surgical History: No Pertinent History Cardiac: No Pertinent History Respiratory: No Pertinent History Gastrointestinal: No Pertinent History Genitourinary: No Pertinent History Musculoskeletal: Orthopedic Surgery Male Surgical History: No Pertinent History Other Surgical History: tonsiliectomy, surgery on jaw - Social History Smoking Status: Current every day smoker How long have you smoked: 40 years Exposure to second hand smoke: Yes Drug Use: none Patient Lives Alone: No - Nursing Vital Signs Nursing Vital Signs: Initial Vital Signs Temperature 98.7 F 05/25/18 15:03 Pulse Rate 75 05/25/18 15:03 Respiratory Rate 18 05/25/18 15:03 Blood Pressure 196/107 05/25/18 15:03 O2 Sat by Pulse Oximetry 99 05/25/18 15:03 Pain Scale Pain Intensity 3 - Physical Exam General Appearance: no apparent distress, alert Eye Exam: PERRL/EOMI, eyes nml inspection Ears, Nose, Throat Exam: normal ENT inspection, TMs normal, pharynx normal, moist mucous membranes Neck Exam: normal inspection, non-tender, supple, full range of motion Respiratory Exam: normal breath sounds, lungs clear, No respiratory distress Cardiovascular Exam: regular rate/rhythm, normal heart sounds, normal peripheral pulses, tachycardia Gastrointestinal/Abdomen Exam: soft (NONTENDER), normal bowel sounds, No tenderness, No mass Back Exam: normal inspection, normal range of motion, No CVA tenderness, No vertebral tenderness Extremity Exam: normal inspection, normal range of motion, pelvis stable Neurologic Exam: alert, oriented x 3, cooperative, normal mood/affect, nml cerebellar function, nml station & gait, sensation nml, No motor deficits Skin Exam: normal color, warm, dry, No rash Lymphatic Exam: No adenopathy SpO2 Interpretation: normal SpO2: 97 - Course EKG Interpreted by Me: RATE, Sinus Rhythm, Sinus Tach (RATE 93), NORMAL AXIS - Radiology Exams Chest X-ray Interpretation: Discussed w/ radiologist, Negative, No Infiltrates Ordered Tests: Active Orders 24 hr Category Date Time Status Varnish Melter STAT Care 05/25/18 16:09 Active Clean Catch Urine Specimen STAT Care 05/25/18 16:09 Active EKG-ER Only STAT Care 05/25/18 16:09 Active CHEST 1 VIEW (PORTABLE) Stat Exams 05/25/18 16:09 Completed AMYLASE Stat Lab 05/25/18 16:09 Completed BLOOD CULTURE Stat Lab 05/25/18 16:50 Received CBC W DIFF Stat Lab 05/25/18 16:09 Completed CMP Stat Lab 05/25/18 16:09 Completed ETHYL ALCOHOL Stat Lab 05/25/18 16:09 Completed LIPASE Stat Lab 05/25/18 16:09 Completed MAGNESIUM Stat Lab 05/25/18 16:09 Completed PROTIME WITH INR Stat Lab 05/25/18 16:09 Completed TROPONIN Q3H Lab 05/25/18 16:45 Completed TROPONIN Q3H Lab 05/25/18 19:45 Ordered TROPONIN Q3H Lab 05/25/18 22:45 Ordered TROPONIN Q3H Lab 05/26/18 01:45 Ordered TROPONIN Q3H Lab 05/26/18 04:45 Ordered UA W/RFX UR CULTURE Stat Lab 05/25/18 16:09 Uncollected Urine Triage Profile Stat Lab 05/25/18 16:09 Uncollected Medication Summary Generic Name Dose Route Start Last Admin Trade Name Freq PRN Reason Stop Dose Admin Multivitamins/Minerals 10 ml/ 1,011.2 mls @ 200 mls/hr 05/25/18 16:15 16:23 Thiamine HCl 100 mg/ Folic IV 05/25/18 21:18 200 mls/hr Acid 1 mg/ Sodium Chloride .Q5H4M JACKI Administration Discontinued Medications Generic Name Dose Route Start Last Admin Trade Name Freq PRN Reason Stop Dose Admin Carvedilol 12.5 mg 05/25/18 17:40 Coreg 12.5 Mg PO 05/25/18 17:41 STAT STA Chlordiazepoxide HCl 25 mg 05/25/18 16:09 05/25/18 16:26 Librium 25 Mg PO 05/25/18 16:10 25 mg STAT ONE Administration Levofloxacin/Dextrose 500 mg in 100 mls @ 100 mls/hr 05/25/18 16:40 05/25/18 16:50 Levofloxacin 500mg/100ml D5w IV 05/25/18 17:39 100 ml/hr STAT STA 100 mls/hr Administration Levofloxacin/Dextrose Confirm 05/25/18 16:49 Levofloxacin 500mg/100ml D5w Administered 02/01/19 16:50 Dose 500 mg in 100 mls @ ud IV .STK-MED ONE Lorazepam 1 mg 05/25/18 16:09 05/25/18 16:18 Ativan 2 Mg/1 Ml Vial IV 05/25/18 16:10 1 mg STAT ONE Administration Lorazepam Confirm 05/25/18 16:15 Ativan 2 Mg/1 Ml Vial Administered 05/25/18 16:16 Dose 2 mg .ROUTE .STK-MED ONE Lab/Rad Data: Laboratory Result Diagrams 05/25/18 16:09 05/25/18 16:09 Laboratory Results 05/25/18 05/25/18 05/25/18 Range/Units 16:45 16:09 16:09 WBC (4.0-10.5) K/mm3 RBC (4.1-5.6) M/mm3 Hgb (12.5-18.0) gm/dl Hct (42-50) % MCV (78-100) fl MCH (26-32) pg MCHC (32-36) g/dl RDW (11.5-14.0) % Plt Count (150-450) K/mm3 MPV (6-9.5) fl Gran % (36.0-66.0) % Eos # (Auto) (0-0.5) Absolute Lymphs (auto) (1.0-4.6) Absolute Monos (auto) (0.0-1.3) Lymphocytes % (24.0-44.0) % Monocytes % (0.0-12.0) % Eosinophils % (0.00-5.0) % Basophils % (0.0-0.4) % Absolute Granulocytes (1.4-6.9) Basophils # (0-0.4) PT 10.1 (8.83-12.87) SECONDS INR 0.87 (0.8-3.0) Sodium 136 L (137-145) mmol/L Potassium 4.4 (3.5-5.1) mmol/L Chloride 90 L (98-107) mmol/L Carbon Dioxide 17 L (22-30) mmol/L Anion Gap 33.9 H (5-15) MEQ/L BUN 22 H (9-20) mg/dL Creatinine 0.96 (0.66-1.25) mg/dL Estimated GFR > 60.0 ML/MIN Glucose 83 (74-106) mg/dL Calcium 9.8 (8.4-10.2) mg/dL Magnesium 1.6 (1.6-2.3) mg/dL Total Bilirubin 1.90 H (0.2-1.3) mg/dL AST 164 H (17-59) U/L ALT 105 H (0-50) U/L Alkaline Phosphatase 154 H (38-126) U/L Troponin I < 0.012 (0.000-0.034) ng/mL Serum Total Protein 8.0 (6.3-8.2) g/dL Albumin 5.0 (3.5-5.0) g/dL Amylase 100 (30-110) U/L Lipase 307 H (23-300) U/L Ethyl Alcohol 217 H (0-10) mg/dL Slides for Path Review 05/25/18 Range/Units 16:09 WBC 9.6 (4.0-10.5) K/mm3 RBC 3.78 L (4.1-5.6) M/mm3 Hgb 14.3 (12.5-18.0) gm/dl Hct 41.1 L (42-50) % MCV 108.7 H (78-100) fl MCH 37.8 H (26-32) pg MCHC 34.8 (32-36) g/dl RDW 12.6 (11.5-14.0) % Plt Count 56 L (150-450) K/mm3 MPV 10.8 H (6-9.5) fl Gran % 70.4 H (36.0-66.0) % Eos # (Auto) 0.10 (0-0.5) Absolute Lymphs (auto) 1.60 (1.0-4.6) Absolute Monos (auto) 1.10 (0.0-1.3) Lymphocytes % 16.7 L (24.0-44.0) % Monocytes % 11.5 (0.0-12.0) % Eosinophils % 1.0 (0.00-5.0) % Basophils % 0.4 (0.0-0.4) % Absolute Granulocytes 6.73 (1.4-6.9) Basophils # 0.04 (0-0.4) PT (8.83-12.87) SECONDS INR (0.8-3.0) Sodium (137-145) mmol/L Potassium (3.5-5.1) mmol/L Chloride (98-107) mmol/L Carbon Dioxide (22-30) mmol/L Anion Gap (5-15) MEQ/L BUN (9-20) mg/dL Creatinine (0.66-1.25) mg/dL Estimated GFR ML/MIN Glucose (74-106) mg/dL Calcium (8.4-10.2) mg/dL Magnesium (1.6-2.3) mg/dL Total Bilirubin (0.2-1.3) mg/dL AST (17-59) U/L ALT (0-50) U/L Alkaline Phosphatase (38-126) U/L Troponin I (0.000-0.034) ng/mL Serum Total Protein (6.3-8.2) g/dL Albumin (3.5-5.0) g/dL Amylase (30-110) U/L Lipase (23-300) U/L Ethyl Alcohol (0-10) mg/dL Slides for Path Review YES - Progress Progress Note: 05/25/18 18:21 ADMINISTERED IV NORMAL SALINE WITH THIAMINE 100MG, FOLIC 1MG, AND 1 AMP MVI Discussed with Dr.: Sheikh (DISCUSSED WITH DR SHEIKH AT 1745 FOR OBSERVATION) - Departure Time of Disposition: 18:30 Departure Disposition: Observation Clinical Impression: ACUTE EMESIS, MALNURITION, ACUTE BRONCITIS, ALCOHOL INTOXICATION Condition: Stable Critical Care Time: No Referrals: JAKOB MCBRIDE MD [Primary Care Provider] -
[2018-05-25] MEDS ORDERED: TYLENOL 325 MG PO PRN (18:25)
[2018-05-25 19:07] LABS: INFLUENZA A NEGATIVE (NEGATIVE); INFLUENZA B NEGATIVE (NEGATIVE); RESPIRATORY SYNCTIAL VIRUS NEGATIVE (Negative)
[2018-05-25] MEDS: Ativan 2 MG/1 ML VIAL IV PRN (20:51)
[2018-05-25] MEDS: Sodium Chloride 0.9% 1000 ML 1,000 ML IV SCH (21:58)
[2018-05-26] MEDS: Ativan 2 MG/1 ML VIAL IV PRN ×6 (02:05→23:54)
[2018-05-26] MEDS: Zofran 4 MG/2 ML VIAL IV PRN ×3 (02:09→16:05)
[2018-05-26 02:17] LABS: Amphetamine,Urine NEGATIVE (NEGATIVE); Barbiturate,Urine NEGATIVE (NEGATIVE); Benzodiazepine,Urine NEGATIVE (NEGATIVE); Cocaine,Urine NEGATIVE (NEGATIVE); Methadone,Urine NEGATIVE (NEGATIVE); Opiate,Urine NEGATIVE (NEGATIVE); PCP,Urine NEGATIVE (NEGATIVE); THC,Urine NEGATIVE (NEGATIVE)
[2018-05-26 03:04] LABS: Appearance SLIGHTLY CLOUDY (CLEAR); Bilirubin NEGATIVE (NEGATIVE); Blood NEGATIVE Ery/ul (0-5); Epithelial Cells RARE /HPF (FEW); Glucose NEGATIVE (NEGATIVE); Ketones MODERATE (NEGATIVE); Leukocyte Esterase NEGATIVE (NEGATIVE); Mucus SLIGHT /HPF (NEGATIVE); Nitrite NEGATIVE (NEGATIVE); Protein,Urine Dip 30 (Negative); Specific Gravity 1.023 (1.005-1.025); Urobilinogen 2 mg/dL (0-1)
[2018-05-26] MEDS: Sodium Chloride 0.9% 1000 ML 1,000 ML IV SCH ×2 (05:42→22:56)
[2018-05-26] MEDS ORDERED: PROTONIX 40 MG IV IV SCH (10:00)
[2018-05-26] MEDS ORDERED: THERAGRAN MULTIVITAMIN PO SCH (10:00)
[2018-05-26 10:17] LABS: BASOPHIL % 0.2 % (0.0-0.4); Basophil (Absolute #) 0.01 (0-0.4); Eosinophil % 1.1 % (0.00-5.0); Eosinophil (Absolute #) 0.07 (0-0.5); Granulocyte Absolute (ANC) 4.42 (1.4-6.9); Granulocytes % 69.3 % (36.0-66.0); Hemoglobin 12.2 gm/dl (12.5-18.0); Lymphocyte (Absolute #) 1.14 (1.0-4.6); Lymphocytes % 17.9 % (24.0-44.0); Mean Cell Volume 107.7 fl (78-100); Mean Corpuscular Hemoglobin 37.5 pg (26-32); Mean Corpuscular Hgb Concent. 34.9 g/dl (32-36); Mean Platelet Volume 11.1 fl (6-9.5); Monocyte (Absolute #) 0.73 (0.0-1.3); Monocytes % 11.5 % (0.0-12.0); Platelet Count 44 K/mm3 (150-450); Red Blood Count 3.25 M/mm3 (4.1-5.6); Red Cell Distribution Width 12.2 % (11.5-14.0); White Blood Count 6.4 K/mm3 (4.0-10.5)
[2018-05-26 10:28] LABS: ALBUMIN 4.2 g/dL (3.5-5.0); ALKALINE PHOSPHATASE 130 U/L (38-126); ANION GAP 15.6 MEQ/L (5-15); BLOOD UREA NITROGEN 18 mg/dL (9-20); CHLORIDE 92 mmol/L (98-107); Calcium 8.9 mg/dL (8.4-10.2); Carbon Dioxide 31 mmol/L (22-30); Creatinine 1 0.74 mg/dL (0.66-1.25); Glucose 113 mg/dL (74-106); Potassium 3.8 mmol/L (3.5-5.1); SGOT/AST 180 U/L (17-59); SGPT/ALT 98 U/L (0-50); SODIUM 135 mmol/L (137-145)
[2018-05-26] MEDS: FOLATE 1 MG PO SCH (10:56)
[2018-05-26] MEDS: Levofloxacin 500MG/100ML D5W 500 MG/100 ML BAG IV SCH (10:56)
[2018-05-26] MEDS: VITAMIN B-1 100 MG PO SCH (10:56)
[2018-05-26 12:05] LABS: Slide Review 1 YES
[2018-05-26] MEDS: Vitamin B-12 500 MCG PO SCH (16:06)
[2018-05-26] MEDS: COREG 12.5 MG PO SCH (21:51)
[2018-05-26] MEDS: THERAGRAN MULTIVITAMIN PO SCH (21:51)
[2018-05-26] MEDS ORDERED: [UNRECOGNIZED DRUG - REMARK] PO SCH (22:00)
[2018-05-27] MEDS: Ativan 2 MG/1 ML VIAL IV PRN ×4 (02:04→16:45)
[2018-05-27] MEDS ORDERED: Nicoderm CQ 21 MG TOP SCH (02:30)
[2018-05-27] MEDS: Sodium Chloride 0.9% 1000 ML 1,000 ML IV SCH ×3 (07:37→23:59)
[2018-05-27] MEDS: VITAMIN B-1 100 MG PO SCH (09:22)
[2018-05-27] MEDS: COREG 12.5 MG PO SCH ×2 (09:22→22:30)
[2018-05-27] MEDS: Levofloxacin 500MG/100ML D5W 500 MG/100 ML BAG IV SCH (09:22)
[2018-05-27] MEDS: Protonix 40MG Tablet PO SCH (09:22)
[2018-05-27] MEDS: FOLATE 1 MG PO SCH (09:22)
[2018-05-27] MEDS: Vitamin B-12 500 MCG PO SCH (09:22)
[2018-05-27] MEDS: THERAGRAN MULTIVITAMIN PO SCH ×2 (09:22→22:30)
[2018-05-27] MEDS: MAG-OX 400 PO SCH (10:13)
[2018-05-27] MEDS: Zestril 10 MG PO SCH (10:13)
--- NOTE | 2018-05-27 11:37 | PCM.NOTE ---
Date and Time: 05/27/18 1132 Subjective Assessment: Patient reports he feels a little better. His mom, dad, and daughter are at the bedside and states he ate very little for breakfast and has not been able to ambulate on his own. He denies weight loss. He reports he will need FMLA papers filled out for his place of employment. He required 7 mg of ativan over the past 24 hours. - Review of Systems Constitutional: Weakness Eyes: No Symptoms Ears, Nose, & Throat: No Symptoms Respiratory: No Symptoms Cardiac: No Symptoms Abdominal/Gastrointestinal: Appetite Changes Genitourinary Symptoms: No Symptoms Musculoskeletal: Other (generalized muscle weakness) Skin: No Symptoms Objective Exam General Appearance: no apparent distress Neurologic Exam: alert, oriented x 3, cooperative, other (poor insight into medical problems) Skin Exam: normal color, warm, dry, No rash Respiratory Exam: normal breath sounds, lungs clear, No crackles/rales, No rhonchi, No wheezing Cardiovascular Exam: regular rate/rhythm, normal heart sounds, No murmur, No friction rub, No gallop Gastrointestinal/Abdomen Exam: soft, normal bowel sounds, No tenderness, No distention, No mass Extremity Exam: other (no c/c/e) OBJECTIVE DATA Vital Signs: Vital Signs - 24 hr Temp Pulse Resp BP Pulse Ox 05/27/18 08:00 97.8 F 74 18 171/94 96 05/27/18 04:28 98.1 F 73 18 174/90 96 05/27/18 00:20 98.6 F 80 20 187/110 98 05/26/18 20:00 98.5 F 68 18 175/96 97 05/26/18 15:50 99 F 68 2 L 179/95 18 L Pain Assessment - Last Documented Pain Intensity 0 Pain Scale Used 0-10 Pain Scale Intake and Output: Intake & Output 05/25/18 05/26/18 05/27/18 05/28/18 06:59 06:59 06:59 06:59 Intake Total 1757 4208 120 Output Total 1300 2200 Balance 457 2007 120 Weight 59 kg 59 kg 60.7 kg Lab Results: Accuchecks Date 05/27/18 Date 05/27/18 Date 05/27/18 Date 05/26/18 Date 05/26/18 Date 05/26/18 Time 07:30 Time 04:00 Time 00:00 Time 20:00 Time 16:30 Accucheck Value: 127 Accucheck Value: 135 Accucheck Value: 150 Accucheck Value: 143 Accucheck Value: 185 Accucheck Value: 133 Lab Results-Last 24 Hours 05/26/18 05/26/18 05/26/18 Range/Units 10:00 10:00 10:15 Magnesium 1.5 L (1.6-2.3) mg/dL Creatine Kinase 58 (55-170) U/L Slides for Path Review YES Radiology Exams: Radiology Procedures Category Date Time Status CHEST 1 VIEW (PORTABLE) Stat Exams 05/25/18 16:09 Completed Assessment/Plan (1) Alcohol abuse Current Visit: No Status: Acute Assessment & Plan: Patient has declined further outpatient treatment for this at this time. He is on the alcohol withdrawal protocol. Code(s): F10.10 - ALCOHOL ABUSE, UNCOMPLICATED (2) Alcohol withdrawal Current Visit: No Status: Acute Assessment & Plan: Continue ativan as needed per protocol. Code(s): F10.239 - ALCOHOL DEPENDENCE WITH WITHDRAWAL, UNSPECIFIED (3) Thrombocytopenia concurrent with and due to alcoholism Current Visit: Yes Status: Acute Assessment & Plan: Recheck CBC today. Currently stable. Code(s): D69.59 - OTHER SECONDARY THROMBOCYTOPENIA; F10.20 - ALCOHOL DEPENDENCE , UNCOMPLICATED (4) Left rib fracture Current Visit: Yes Status: Acute Assessment & Plan: asymptomatic. Code(s): S22.32XA - FRACTURE OF ONE RIB, LEFT SIDE, INIT FOR CLOS FX (5) Elevated liver function tests Current Visit: Yes Status: Acute Code(s): R94.5 - ABNORMAL RESULTS OF LIVER FUNCTION STUDIES (6) Hypomagnesemia Current Visit: Yes Status: Acute Assessment & Plan: start magnesium oxide 400 mg po daily today. Code(s): E83.42 - HYPOMAGNESEMIA (7) Tobacco abuse Current Visit: Yes Status: Acute Assessment & Plan: Nicotine patch ordered. Code(s): Z72.0 - TOBACCO USE (8) Generalized weakness Current Visit: Yes Status: Acute Assessment & Plan: PT consult and evaluation ordered. Code(s): R53.1 - WEAKNESS (9) Essential hypertension Current Visit: Yes Status: Acute Assessment & Plan: Continue carvedilol and add lisinopril 10 mg po daily. Hydralazine prn systolic bp >170. Code(s): I10 - ESSENTIAL (PRIMARY) HYPERTENSION
[2018-05-27 12:14] LABS: BASOPHIL % 0.2 % (0.0-0.4); Basophil (Absolute #) 0.01 (0-0.4); Eosinophil % 2.3 % (0.00-5.0); Eosinophil (Absolute #) 0.11 (0-0.5); Granulocyte Absolute (ANC) 2.35 (1.4-6.9); Granulocytes % 49.7 % (36.0-66.0); Hematocrit 34.9 % (42-50); Hemoglobin 12.2 gm/dl (12.5-18.0); Lymphocyte (Absolute #) 1.55 (1.0-4.6); Lymphocytes % 32.8 % (24.0-44.0); Mean Platelet Volume 11.3 fl (6-9.5); Monocyte (Absolute #) 0.71 (0.0-1.3); Platelet Count 46 K/mm3 (150-450); Red Blood Count 3.23 M/mm3 (4.1-5.6); Red Cell Distribution Width 11.9 % (11.5-14.0); White Blood Count 4.7 K/mm3 (4.0-10.5)
[2018-05-27 12:19] LABS: Mean Corpuscular Hemoglobin 37.7 pg (26-32)
[2018-05-27 14:01] LABS: ALBUMIN 3.7 g/dL (3.5-5.0); ALKALINE PHOSPHATASE 113 U/L (38-126); ANION GAP 12.3 MEQ/L (5-15); BLOOD UREA NITROGEN 8 mg/dL (9-20); CHLORIDE 92 mmol/L (98-107); Carbon Dioxide 29 mmol/L (22-30); Creatinine 1 0.56 mg/dL (0.66-1.25); Glucose 111 mg/dL (74-106); Potassium 3.1 mmol/L (3.5-5.1); SGOT/AST 147 U/L (17-59); SGPT/ALT 91 U/L (0-50); SODIUM 130 mmol/L (137-145); Total Protein 6.5 g/dL (6.3-8.2)
[2018-05-27 15:27] LABS: Slide Review 1 YES
[2018-05-27] MEDS: Nicoderm CQ 21 MG TOP SCH (22:31)
[2018-05-28] MEDS: Sodium Chloride 0.9% 1000 ML 1,000 ML IV SCH ×4 (07:32→22:51)
--- NOTE | 2018-05-28 08:22 | PCM.NOTE ---
Date and Time: 05/28/18820 Subjective Assessment: patient tolerating some po intake, still requiring IV ativan intermittently. he is very weak and shakey Objective Exam General Appearance: cachetic Skin Exam: normal color, warm, dry Respiratory Exam: normal breath sounds, lungs clear, No respiratory distress Cardiovascular Exam: regular rate/rhythm, normal heart sounds Gastrointestinal/Abdomen Exam: soft, No tenderness, No mass Extremity Exam: normal inspection, normal range of motion OBJECTIVE DATA Vital Signs: Vital Signs - 24 hr Temp Pulse Resp BP Pulse Ox 05/28/18 07:25 97.4 F 66 16 141/81 96 05/28/18 04:22 97.9 F 69 18 149/81 98 05/28/18 00:21 97.7 F 69 16 110/71 98 05/27/18 19:40 98.3 F 64 15 106/57 98 05/27/18 16:00 97.7 F 76 18 121/78 97 05/27/18 12:00 97.7 F 81 18 154/91 96 Pain Assessment - Last Documented Pain Intensity 0 Pain Scale Used 0-10 Pain Scale Intake and Output: Intake & Output 05/25/18 05/26/18 05/27/18 05/28/18 11:59 11:59 11:59 11:59 Intake Total 2237 3848 3872 Output Total 1800 1700 Balance 437 2148 3872 Weight 59 kg 60.7 kg 60.7 kg Lab Results: Accuchecks Date 05/28/18 Date 05/28/18 Date 05/28/18 Date 05/27/18 Date 05/27/18 Date 05/27/18 Time 07:25 Time 04:14 Time 00:16 Time 20:19 Time 16:30 Time 11:30 Accucheck Value: 98 Accucheck Value: 105 Accucheck Value: 146 Accucheck Value: 105 Accucheck Value: 129 Accucheck Value: 134 Lab Results-Last 24 Hours 05/27/18 05/27/18 Range/Units 12:12 12:12 WBC 4.7 (4.0-10.5) K/mm3 RBC 3.23 L (4.1-5.6) M/mm3 Hgb 12.2 L (12.5-18.0) gm/dl Hct 34.9 L (42-50) % MCV 108.0 H (78-100) fl MCH 37.7 H (26-32) pg MCHC 35.0 (32-36) g/dl RDW 11.9 (11.5-14.0) % Plt Count 46 L (150-450) K/mm3 MPV 11.3 H (6-9.5) fl Gran % 49.7 (36.0-66.0) % Eos # (Auto) 0.11 (0-0.5) Absolute Lymphs (auto) 1.55 (1.0-4.6) Absolute Monos (auto) 0.71 (0.0-1.3) Lymphocytes % 32.8 (24.0-44.0) % Monocytes % 15.0 H (0.0-12.0) % Eosinophils % 2.3 (0.00-5.0) % Basophils % 0.2 (0.0-0.4) % Absolute Granulocytes 2.35 (1.4-6.9) Basophils # 0.01 (0-0.4) Sodium 130 L (137-145) mmol/L Potassium 3.1 L (3.5-5.1) mmol/L Chloride 92 L (98-107) mmol/L Carbon Dioxide 29 (22-30) mmol/L Anion Gap 12.3 (5-15) MEQ/L BUN 8 L (9-20) mg/dL Creatinine 0.56 L (0.66-1.25) mg/dL Estimated GFR > 60.0 ML/MIN Glucose 111 H (74-106) mg/dL Calcium 9.0 (8.4-10.2) mg/dL Total Bilirubin 1.60 H (0.2-1.3) mg/dL AST 147 H (17-59) U/L ALT 91 H (0-50) U/L Alkaline Phosphatase 113 (38-126) U/L Serum Total Protein 6.5 (6.3-8.2) g/dL Albumin 3.7 (3.5-5.0) g/dL Slides for Path Review YES Assessment/Plan (1) Alcohol withdrawal Current Visit: Yes Status: Acute Onset Date: ~05/26/18 Assessment & Plan: continue detox protocol, strongly encourage patient to go for inpatient treatment. family is encouraging him as well. he is resistant Code(s): F10.239 - ALCOHOL DEPENDENCE WITH WITHDRAWAL, UNSPECIFIED (2) Elevated liver function tests Current Visit: Yes Status: Acute Code(s): R94.5 - ABNORMAL RESULTS OF LIVER FUNCTION STUDIES (3) Essential hypertension Current Visit: Yes Status: Acute Code(s): I10 - ESSENTIAL (PRIMARY) HYPERTENSION
[2018-05-28] MEDS: FOLATE 1 MG PO SCH (10:32)
[2018-05-28] MEDS: COREG 12.5 MG PO SCH ×2 (10:32→21:01)
[2018-05-28] MEDS: VITAMIN B-1 100 MG PO SCH (10:33)
[2018-05-28] MEDS: MAG-OX 400 PO SCH (10:33)
[2018-05-28] MEDS: THERAGRAN MULTIVITAMIN PO SCH ×2 (10:33→21:01)
[2018-05-28] MEDS: Protonix 40MG Tablet PO SCH (10:33)
[2018-05-28] MEDS: Zestril 10 MG PO SCH (10:34)
[2018-05-28] MEDS: Vitamin B-12 500 MCG PO SCH (10:35)
--- NOTE | 2018-05-28 11:55 | HP ---
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 He reports he had a couple of alcoholic drinks. His mother and father were at the bedside and report he has not been able to get out of bed all week because he has been so weak. The patient reports he again vomited this morning after a few bites of his breakfast. He denies any pain. He reports he has withdrawn from alcohol in the past and has had a long history of alcohol abuse. He has tried to go to rehab facilities in the past. He states he is not interested in going to one now or having any further help at this time. REVIEW OF SYSTEMS: No fever. No diarrhea. No lower extremity edema. No abdominal pain. No rashes. Otherwise review of systems negative. PAST MEDICAL HISTORY: Alcohol abuse. PAST SURGICAL HISTORY: None. MEDICATIONS: Please see his medication reconciliation list which I reviewed. ALLERGIES: NKDA. SOCIAL HISTORY: He lives alone. He reports smokes less than one-half pack per day of cigarettes. He reports alcohol use. FAMILY HISTORY: Noncontributory. PHYSICAL EXAMINATION: VITAL SIGNS: Temperature current 98.3F, temperature max 99.1F, heart rate 83 to 99, respiratory rate 12 to 22, blood pressure 145 to 199 over 76 to 107 currently 149/83, weight 59 kg. Oxygen saturation 93 to 97% on room air. GENERAL: The patient is sitting up in bed, alert and talkative in no acute distress. His parents are at the bedside. CVS: He has a regular rate and rhythm. No murmurs, gallops or rubs appreciated. CHEST: Clear to auscultation bilaterally. No crackles or wheezes appreciated. ABDOMEN: Soft, nontender, nondistended with normal bowel sounds. EXTREMITIES: No clubbing, cyanosis or edema. SKIN: Warm, dry and intact. LABORATORY DATA AND TESTS: Hemoglobin 12.2, PLT count 44,000. Sodium 135, bilirubin 2.1, AST 180, ALT 98, alkaline phosphatase 130. UA negative. Urine tox negative. Ethanol alcohol level on admission 217. Influenza A/B and respiratory syncytial virus were all negative. Chest x-ray revealed a new healing, nondisplaced left eighth rib fracture. ASSESSMENT AND PLAN: 1) ALCOHOL ABUSE: He has been placed on alcohol withdrawal protocol. The patient has been counseled that it would be best for him to quit using alcohol. He reports he is not interested in further treatment at this time. He states he will need a note for his work as he is on suspension right now and he works at [employer]. 2) GENERALIZED WEAKNESS: Will ask PT evaluation and treatment. I will check CPK and magnesium level. 3) THROMBOCYTOPENIA: Most likely due to chronic alcoholism currently stable with no signs of bleeding. 4) LEFT RIB FRACTURE: He has not complained of any pain and will continue to monitor. 5) ELEVATED LIVER FUNCTION TEST: Most likely due to alcohol use.
[2018-05-28] MEDS: Ativan 2 MG/1 ML VIAL IV PRN (16:38)
[2018-05-28] MEDS: Nicoderm CQ 21 MG TOP SCH (21:01)
[2018-05-29] MEDS: Apresoline 25 MG TABLET PO PRN ×2 (00:22→06:35)
[2018-05-29 05:57] LABS: BASOPHIL % 0.2 % (0.0-0.4); Basophil (Absolute #) 0.01 (0-0.4); Eosinophil % 2.4 % (0.00-5.0); Granulocyte Absolute (ANC) 1.78 (1.4-6.9); Granulocytes % 43.3 % (36.0-66.0); Hematocrit 33.5 % (42-50); Hemoglobin 11.7 gm/dl (12.5-18.0); Lymphocytes % 38.8 % (24.0-44.0); Mean Cell Volume 110.2 fl (78-100); Mean Corpuscular Hgb Concent. 34.9 g/dl (32-36); Mean Platelet Volume 11.3 fl (6-9.5); Monocyte (Absolute #) 0.63 (0.0-1.3); Monocytes % 15.3 % (0.0-12.0); Platelet Count 59 K/mm3 (150-450); Red Blood Count 3.04 M/mm3 (4.1-5.6); Red Cell Distribution Width 12.3 % (11.5-14.0); White Blood Count 4.1 K/mm3 (4.0-10.5)
[2018-05-29 06:09] LABS: Mean Corpuscular Hemoglobin 38.4 pg (26-32)
[2018-05-29 06:22] LABS: ALBUMIN 3.6 g/dL (3.5-5.0); ALKALINE PHOSPHATASE 97 U/L (38-126); ANION GAP 10.3 MEQ/L (5-15); BLOOD UREA NITROGEN 12 mg/dL (9-20); CHLORIDE 100 mmol/L (98-107); Calcium 9.5 mg/dL (8.4-10.2); Carbon Dioxide 30 mmol/L (22-30); Creatinine 1 0.67 mg/dL (0.66-1.25); Glucose 100 mg/dL (74-106); MAGNESIUM 1.2 mg/dL (1.6-2.3); Potassium 3.2 mmol/L (3.5-5.1); SGOT/AST 162 U/L (17-59); SGPT/ALT 115 U/L (0-50); SODIUM 137 mmol/L (137-145); Total Protein 6.4 g/dL (6.3-8.2)
[2018-05-29] MEDS: Sodium Chloride 0.9% 1000 ML 1,000 ML IV SCH ×3 (06:36→21:39)
[2018-05-29 08:15] LABS: Slide Review 1 YES
--- NOTE | 2018-05-29 08:46 | PCM.NOTE ---
Date and Time: 05/29/18 0842 Subjective Assessment: Pt thinks his last ativan dose was last night. Did have HTN to 190s systolic and mom says that's happened before as he withdraws from alcohol. He denies tremors this morning. Laquita po well. He is thinking about going to [facility] for rehab. - Review of Systems Constitutional: No Fever Abdominal/Gastrointestinal: No Vomiting Objective Exam General Appearance: no apparent distress, alert Neurologic Exam: oriented x 3, cooperative Skin Exam: normal color, warm, dry, No rash Ears, Nose, Throat Exam: moist mucous membranes Respiratory Exam: normal breath sounds, lungs clear, No crackles/rales, No rhonchi, No wheezing Cardiovascular Exam: regular rate/rhythm, normal heart sounds, No murmur Gastrointestinal/Abdomen Exam: soft, normal bowel sounds, No tenderness, No distention, No mass, No guarding, No rebound Extremity Exam: normal inspection, No pedal edema, No swelling OBJECTIVE DATA Vital Signs: Vital Signs - 24 hr Temp Pulse Resp BP Pulse Ox 05/29/18 07:15 98 F 84 20 156/83 98 05/29/18 05:21 168/92 05/29/18 04:00 98.2 F 68 18 195/99 98 05/29/18 00:00 98.4 F 54 L 18 172/86 99 05/28/18 19:35 99 F 70 20 185/86 100 05/28/18 16:00 98.1 F 68 16 111/59 98 05/28/18 12:55 98.1 F 72 16 130/71 97 05/28/18 12:00 98.1 F 72 16 130/71 97 Pain Assessment - Last Documented Pain Intensity 0 Pain Scale Used 0-10 Pain Scale Intake and Output: Intake & Output 05/26/18 05/27/18 05/28/18 05/29/18 11:59 11:59 11:59 11:59 Intake Total 2237 3728 3872 3217 Output Total 1800 1700 Balance 437 4226 3872 3217 Weight 59 kg 60.7 kg 60.7 kg 58.5 kg Lab Results: Accuchecks Date 05/28/18 Date 05/28/18 Time 16:28 Time 12:34 Accucheck Value: 100 Accucheck Value: 109 Accucheck Value: 111 Accucheck Value: 112 Accucheck Value: 130 Accucheck Value: 113 Lab Results-Last 24 Hours 05/29/18 05/29/18 Range/Units 05:20 05:20 WBC 4.1 (4.0-10.5) K/mm3 RBC 3.04 L (4.1-5.6) M/mm3 Hgb 11.7 L (12.5-18.0) gm/dl Hct 33.5 L (42-50) % MCV 110.2 H (78-100) fl MCH 38.4 H (26-32) pg MCHC 34.9 (32-36) g/dl RDW 12.3 (11.5-14.0) % Plt Count 59 L (150-450) K/mm3 MPV 11.3 H (6-9.5) fl Gran % 43.3 (36.0-66.0) % Eos # (Auto) 0.10 (0-0.5) Absolute Lymphs (auto) 1.60 (1.0-4.6) Absolute Monos (auto) 0.63 (0.0-1.3) Lymphocytes % 38.8 (24.0-44.0) % Monocytes % 15.3 H (0.0-12.0) % Eosinophils % 2.4 (0.00-5.0) % Basophils % 0.2 (0.0-0.4) % Absolute Granulocytes 1.78 (1.4-6.9) Basophils # 0.01 (0-0.4) Sodium 137 D (137-145) mmol/L Potassium 3.2 L (3.5-5.1) mmol/L Chloride 100 (98-107) mmol/L Carbon Dioxide 30 (22-30) mmol/L Anion Gap 10.3 (5-15) MEQ/L BUN 12 (9-20) mg/dL Creatinine 0.67 (0.66-1.25) mg/dL Estimated GFR > 60.0 ML/MIN Glucose 100 (74-106) mg/dL Calcium 9.5 (8.4-10.2) mg/dL Magnesium 1.2 L (1.6-2.3) mg/dL Total Bilirubin 1.00 (0.2-1.3) mg/dL AST 162 H (17-59) U/L ALT 115 H (0-50) U/L Alkaline Phosphatase 97 (38-126) U/L Serum Total Protein 6.4 (6.3-8.2) g/dL Albumin 3.6 (3.5-5.0) g/dL Slides for Path Review YES Multi-Disciplinary Progress Notes: Multi-Disciplinary Progress Notes 05/28/18 16:37 Physical Therapy Note by Megan Bynum PATIENT REFUSED THERAPY INTERVENTION TODAY DUE TO NAUSEA. DID WALK WITH ROLLER WALKER TO THE BATHROOM WITH CGA +1. HAS BEEN UP WITH STAFF IN ROUTINE CARE TO THE BATHROOM - THEY STATE GAIT IS MORE STABLE WITH A.D. WILL TRY TO INCREASE ACTIVITY TOMORROW. Initialized on 05/28/18 16:37 - END OF NOTE Assessment/Plan (1) Alcohol withdrawal Current Visit: Yes Status: Acute Onset Date: ~05/26/18 Qualifiers: Complication of substance-induced condition: uncomplicated Qualified Code(s ): F10.230 - Alcohol dependence with withdrawal, uncomplicated Assessment & Plan: with labile BP. Agree with going to [facility] if pt would like. Code(s): F10.239 - ALCOHOL DEPENDENCE WITH WITHDRAWAL, UNSPECIFIED (2) Elevated liver function tests Current Visit: Yes Status: Chronic Code(s): R94.5 - ABNORMAL RESULTS OF LIVER FUNCTION STUDIES (3) Essential hypertension Current Visit: Yes Status: Chronic Code(s): I10 - ESSENTIAL (PRIMARY) HYPERTENSION (4) Left rib fracture Current Visit: Yes Status: Acute Qualifiers: Encounter type: subsequent encounter Rib fracture type: single rib Fracture type: closed Fracture healing: with routine healing Qualified Code( s): S22.32XD - Fracture of one rib, left side, subsequent encounter for fracture with routine healing Assessment & Plan: no complaint this mroning Code(s): S22.32XA - FRACTURE OF ONE RIB, LEFT SIDE, INIT FOR CLOS FX (5) Thrombocytopenia concurrent with and due to alcoholism Current Visit: Yes Status: Chronic Code(s): D69.59 - OTHER SECONDARY THROMBOCYTOPENIA; F10.20 - ALCOHOL DEPENDENCE, UNCOMPLICATED
[2018-05-29] MEDS: VITAMIN B-1 100 MG PO SCH (09:45)
[2018-05-29] MEDS: THERAGRAN MULTIVITAMIN PO SCH ×2 (09:46→21:40)
[2018-05-29] MEDS: MAG-OX 400 PO SCH (09:46)
[2018-05-29] MEDS: Protonix 40MG Tablet PO SCH (09:46)
[2018-05-29] MEDS: COREG 12.5 MG PO SCH ×2 (09:46→21:40)
[2018-05-29] MEDS: Zestril 10 MG PO SCH (09:46)
[2018-05-29] MEDS: FOLATE 1 MG PO SCH (09:46)
[2018-05-29] MEDS: Vitamin B-12 500 MCG PO SCH (09:49)
[2018-05-29] MEDS: Nicoderm CQ 21 MG TOP SCH (21:40)
[2018-05-30] MEDS: Apresoline 25 MG TABLET PO PRN (03:47)
[2018-05-30 03:51] VITALS: O2SAT 96
[2018-05-30] MEDS: Sodium Chloride 0.9% 1000 ML 1,000 ML IV SCH (04:53)
[2018-05-30 07:14] VITALS: BP 159/82; PULSE 55
--- NOTE | 2018-05-30 09:13 | PCM.DS ---
Discharge Summary Date of Admission: 05/26/18 08:11 Admitting Physician: ROLANDA SHEIKH Primary Care Provider: JAKOB MCBRIDE Allergies Allergies No Known Drug Allergies Allergy (Verified 05/25/18 15:09) Hospital Summary - Hospital Course Hospital Course: patient was admitted with alcohol withdrawal, had not been eating and was very weak. he is no longer requiring ativan, tolerating po and ambulating steady. we have had multiple discussions about rehab but he declines at this time. has been to [facility] in the past and did not feel it was helpful. - Vitals & Intake/Output Vital Signs: Vital Signs Temperature 97.8 F 05/30/18 07:14 Pulse Rate 55 L 05/30/18 07:14 Respiratory Rate 18 05/30/18 07:14 Blood Pressure 159/82 05/30/18 07:14 O2 Sat by Pulse Oximetry 96 05/30/18 07:14 Intake & Output: Intake & Output 05/27/18 05/28/18 05/29/18 05/30/18 11:59 11:59 11:59 11:59 Intake Total 3848 3872 3457 4212 Output Total 1700 Balance 2148 3872 3457 4212 Weight 60.7 kg 60.7 kg 58.5 kg 59.3 kg - Lab Result Diagrams: 05/29/18 05:20 05/29/18 05:20 Lab Results-Last 24 Hrs: Accuchecks Date 05/30/18 Time 08:00 Accucheck Value: 93 Accucheck Value: 106 Accucheck Value: 109 Accucheck Value: 114 Accucheck Value: 120 Accucheck Value: 127 Micro Results-Entire Visit: Microbiology 05/25/18 16:45 Blood Culture Gram Stain - Final Blood Not Reportable Blood Culture - Final NO GROWTH 05/25/18 16:50 Blood Culture Gram Stain - Final Blood Not Reportable Blood Culture - Final NO GROWTH Accuchecks Date 05/30/18 Time 08:00 Accucheck Value: 93 Accucheck Value: 106 Accucheck Value: 109 Accucheck Value: 114 Accucheck Value: 120 Accucheck Value: 127 - Procedures and Test Procedures and Tests throughout Hospitalization: Therapy Orders & Screens 05/25/18 21:55 Smoking Cessation Education Comment: Diagnosis: Alcohol Intoxication; Acute Emesis; Acute Bronchitis Smoking Status: Current every day smoker How long have you smoked: 30 years Have you smoked in the past 12 months: Yes Approximately how many cigarettes per day: 20 Do you dip or chew tobacco: No 05/26/18 12:57 PT Eval & Treat (MD Order) ROUTINE Reason for Eval:: generalized weakness Diagnosis: Alcohol Intoxication; Acute Emesis; Acute Bronchitis Discharge Exam General Appearance: no apparent distress, alert, thin Neurologic Exam: alert, oriented x 3 Skin Exam: normal color, warm, dry Respiratory Exam: normal breath sounds, lungs clear, No respiratory distress Cardiovascular Exam: regular rate/rhythm, normal heart sounds Gastrointestinal/Abdomen Exam: soft, No tenderness, No mass Extremity Exam: normal inspection, normal range of motion Final Diagnosis/Problem List - Final Discharge Diagnosis/Problem (1) Alcohol withdrawal Current Visit: Yes Status: Acute Onset Date: ~05/26/18 Assessment & Plan: will provide literature on outpatient treatment, [facility] paperwork was completed for employer (2) Elevated liver function tests Current Visit: Yes Status: Chronic (3) Essential hypertension Current Visit: Yes Status: Chronic - Discharge Disposition: Home, Self-Care Condition: Stable Prescriptions: New Thiamine HCl 100 mg [Vitamin B-1 100 mg] 100 mg PO DAILY #30 tablet Lisinopril 10 mg [Zestril 10 MG] 10 mg PO DAILY #30 tablet Continue Pnv No.95/Ferrous Fum/Folic AC [ Multivitamin Tablet] 1 tablet PO BID Cyanocobalamin (Vitamin B-12) [Vitamin B12] 2,500 mcg PO DAILY PANTOPRAZOLE 40 mg Tablet [Protonix 40MG Tablet] 40 mg PO QAM #30 tab Carvedilol 12.5 mg [Coreg 12.5 mg] 1 tab PO BID #60 tablet Follow up with: JAKOB MCBRIDE MD [Primary Care Provider] - 1 Week
[2018-05-30] MEDS: VITAMIN B-1 100 MG PO SCH (10:03)
[2018-05-30] MEDS: MAG-OX 400 PO SCH (10:04)
[2018-05-30] MEDS: Vitamin B-12 500 MCG PO SCH (10:04)
[2018-05-30] MEDS: COREG 12.5 MG PO SCH (10:05)
[2018-05-30] MEDS: THERAGRAN MULTIVITAMIN PO SCH (10:05)
[2018-05-30] MEDS: Zestril 10 MG PO SCH (10:05)
[2018-05-30] MEDS: Protonix 40MG Tablet PO SCH (10:05)
[2018-05-30] MEDS: FOLATE 1 MG PO SCH (10:06)
== END 2018-05-30 10:30 | disposition home or self-care (01) | DRG 897 ==
LOC: ED 14:43 → MED SURG 18:54 → OBSVTOIN 05-26 08:11
PROVIDERS: ADMIT Internal Medicine; ATTEND Family Medicine
DX: F10.239 Alcohol dependence with withdrawal, unspecified (principal); S22.32XA Fracture of one rib, left side, initial encounter for closed fracture; E83.42 Hypomagnesemia; R94.5 Abnormal results of liver function studies; I10 Essential (primary) hypertension; R53.1 Weakness; D69.6 Thrombocytopenia, unspecified; Z72.0 Tobacco use
CPT/HCPCS: 36000; 36415; 71045; 80053; 80307; 81001; 82150; 82550; 82962; 83036; 83690; 83735; 84484; 85025; 85610; 87040; 87631; 93005; 93268; 96360; 96361; 96365; 96374; 99285; J1956; J2060; J2405; A9270-GY; G0378; G0480

== ENCOUNTER 2018-12-02 13:22 | Emergency (ER) | payer BC ==
[2018-12-02] MEDS ORDERED: Pepcid 20 MG VIAL IV ONE ×2 (13:52→14:18)
[2018-12-02] MEDS ORDERED: Zofran 4 MG/2 ML VIAL IV ONE (13:52)
[2018-12-02] MEDS ORDERED: Ativan 2 MG/1 ML VIAL IV ONE (13:54)
[2018-12-02] MEDS ORDERED: THERAGRAN MULTIVITAMIN PO ONE (13:54)
[2018-12-02] MEDS ORDERED: THIAMINE 200 MG/2 ML IV ONE (13:54)
[2018-12-02] MEDS ORDERED: Sodium Chloride 0.9% 1000 ML 1,000 ML IV STA (13:55)
[2018-12-02] MEDS ORDERED: Sodium Chloride 0.9% 1000 ML 1,000 ML ONE (14:04)
--- NOTE | 2018-12-02 14:06 | ERPHSYRPT ---
- History of Present Illness Time Seen by Provider: 12/02/18 13:41 Historian: patient, other (son) Exam Limitations: intoxication Patient Subjective Stated Complaint: pt here for vomiting today, pt has hx of alcoholism and states he has only had 2 drinks, he states sleeping alot, weak, not eating well the last 2 days, fell this morning with no injuries, he fell 1 month ago ago and states hes left side of chest still hurts from that Triage Nursing Assessment: pt alert, face flushed, resp easy , skin w/d/p, chest tender to palpate, abd soft,no headaches . no edema, moves all ext well Physician History: Pt admits to drink alcohol every day, he had 2 whiskeys today and vomited x2, denies abdominal or chest pain ( except pain in the left ribs from a fall 2 months ago), no cough, SOB, fever, diarrhea, or other complaints, denies vomiting blood or coffee ground material. He and his son also mentioned, he fell one month ago, hit his right anterior chest, c/o pain in his anterior ribs ever since, denies SOB, coughing up blood or fever. His tetanus status is unsure. Timing/Duration: hour(s) (2) Activities at Onset: none Quality: other (denies) Pain Radiation: no radiation Severity of Pain-Max: none Severity of Pain-Current: none Modifying Factors: Improves With: nothing Associated Symptoms: nausea, vomiting Previous symptoms: same symptoms as today Allergies/Adverse Reactions: No Known Drug Allergies Allergy (Verified 12/02/18 13:50) Home Medications: Cyanocobalamin (Vitamin B-12) [Vitamin B12] 2,500 mcg PO DAILY 11/13/16 [History ] Pnv No.95/Ferrous Fum/Folic AC [ Multivitamin Tablet] 1 tablet PO BID [History] Hx Tetanus, Diphtheria Vaccination/Date Given: No Hx Influenza Vaccination/Date Given: No Hx Pneumococcal Vaccination/Date Given: No Immunizations Up to Date: Yes - Review of Systems Constitutional: No Symptoms Ears, Nose, & Throat: No Symptoms Respiratory: No Cough, No Dyspnea, No Wheezing Cardiac: Other (pain in left ribs from fall 1 month ago.), No Edema Abdominal/Gastrointestinal: Nausea, Vomiting, No Abdominal Pain, No Diarrhea, No Hematemesis, No Hematochezia, No Melena Genitourinary Symptoms: No Symptoms Musculoskeletal: No Symptoms Skin: No Symptoms Neurological: No Symptoms Psychological: Alcohol Abuse All Other Systems: Reviewed and Negative - Past Medical History Pertinent Past Medical History: Yes Neurological History: No Pertinent History ENT History: No Pertinent History Cardiac History: Hypertension Respiratory History: No Pertinent History Endocrine Medical History: No Pertinent History Musculoskeletal History: Fractures GI Medical History: Other History: No Pertinent History Psycho-Social History: Other Male Reproductive Disorders: No Pertinent History Other Medical History: dizziness, liver inflammation d/t alcohol intake, alcoholism, broken jaw - Past Surgical History Past Surgical History: Yes Neuro Surgical History: No Pertinent History Cardiac: No Pertinent History Respiratory: No Pertinent History Gastrointestinal: No Pertinent History Genitourinary: No Pertinent History Musculoskeletal: Orthopedic Surgery Male Surgical History: No Pertinent History Other Surgical History: tonsiliectomy, surgery on jaw - Social History Smoking Status: Current every day smoker How long have you smoked: 30 years Exposure to second hand smoke: Yes Drug Use: none Patient Lives Alone: Yes - Nursing Vital Signs Nursing Vital Signs: Initial Vital Signs Temperature 98.0 F 12/02/18 13:43 Pulse Rate 84 12/02/18 13:43 Respiratory Rate 18 12/02/18 13:43 Blood Pressure 165/107 12/02/18 13:43 O2 Sat by Pulse Oximetry 96 12/02/18 13:43 Pain Scale Pain Intensity 3 - Physical Exam General Appearance: no apparent distress Eye Exam: eyes nml inspection Ears, Nose, Throat Exam: normal ENT inspection, pharynx normal, moist mucous membranes, other (coated tongue) Neck Exam: normal inspection, non-tender, supple, No carotid bruit, No JVD, No subcutaneous emphysema Respiratory Exam: normal breath sounds, chest tenderness (right anterior ribs, no swelling, ecchymosis, crepitations.), lungs clear, airway intact Cardiovascular Exam: regular rate/rhythm, normal heart sounds, normal peripheral pulses, No murmur, No edema Gastrointestinal/Abdomen Exam: soft, normal bowel sounds, No tenderness, No distention, No mass, No guarding, No ecchymosis, No pulsatile mass, No rebound, No hernia, No hepatomegaly, No organomegaly Back Exam: normal inspection, No CVA tenderness, No vertebral tenderness Extremity Exam: normal inspection, other (left anterior knee: 2 cm superficial abrasion, no swelling, ecchimosis, no effusion, or deformity, good ROM, normal distal pulses and sensation.), No calf tenderness, No mercedes's sign, No pedal edema Neurologic Exam: alert, oriented x 3, cooperative, normal mood/affect Skin Exam: normal color, warm, dry, No rash, No petechiae, No jaundice, No cyanosis, No diaphoresis Lymphatic Exam: No adenopathy SpO2 Interpretation: normal SpO2: 96 O2 Delivery: Room Air - Course Nursing assessment & vital signs reviewed: Yes EKG Interpreted by Me: RATE (76/min), Left [place] Deviation, NORMAL INTERVALS, Non -specific ST Changes - Radiology Exams Chest X-ray Interpretation: Interpreted by me, Negative, Other (COPD, Emphysema) - CT Exams Chest CT Interpretation: Tele-radiologist Report, No PE Abdomen/Pelvis CT Interpretation: Tele-radiologist Report, Other (mild right colon wall thickening) Ordered Tests: Active Orders 24 hr Category Date Time Status EKG-ER Only STAT Care 12/02/18 13:52 Active IV Insertion STAT Care 12/02/18 13:52 Active ABDOMEN AND PELVIS W CONTRAST [CT] Stat Exams 12/02/18 15:06 Taken CHEST 1 VIEW (PORTABLE) Stat Exams 12/02/18 13:54 Taken CHEST WITH CONTRAST [CT] Stat Exams 12/02/18 15:05 Taken AMYLASE Stat Lab 12/02/18 13:52 Completed Alcohol [ETHYL ALCOHOL] Stat Lab 12/02/18 17:06 Completed CBC W DIFF Stat Lab 12/02/18 13:52 Completed CMP Stat Lab 12/02/18 13:52 Completed D-DIMER QUANTITATION Stat Lab 12/02/18 13:52 Completed ETHYL ALCOHOL Stat Lab 12/02/18 13:52 Completed LIPASE Stat Lab 12/02/18 13:52 Completed MAGNESIUM Stat Lab 12/02/18 13:52 Completed PROTIME WITH INR Stat Lab 12/02/18 13:52 Completed TROPONIN Q3H Lab 12/02/18 14:00 Completed TROPONIN Q3H Lab 12/02/18 17:06 Completed TROPONIN Q3H Lab 12/02/18 20:00 Ordered TROPONIN Q3H Lab 12/02/18 23:00 Ordered TROPONIN Q3H Lab 12/03/18 02:00 Ordered UA W/RFX UR CULTURE Stat Lab 12/02/18 15:12 Completed Urine Triage Profile Stat Lab 12/02/18 15:12 Completed Medication Summary Discontinued Medications Generic Name Dose Route Start Last Admin Trade Name Nicholas PRN Reason Stop Dose Admin Famotidine 20 mg 12/02/18 13:52 12/02/18 14:33 Pepcid 20 Mg Vial IV 12/02/18 13:53 20 mg STAT ONE Administration Famotidine Confirm 12/02/18 14:18 Pepcid 20 Mg Vial Administered 12/02/18 14:19 Dose 20 mg IV .STK-MED ONE Sodium Chloride 1,000 mls @ 999 mls/hr 12/02/18 13:55 12/02/18 14:05 Sodium Chloride 0.9% 1000 Ml IV 12/02/18 14:55 999 mls/hr .Q1H1M STA Administration Sodium Chloride Confirm 12/02/18 14:04 Sodium Chloride 0.9% 1000 Ml Administered 12/02/18 14:05 Dose 1,000 mls @ ud .ROUTE .STK-MED ONE Lorazepam 1 mg 12/02/18 13:54 12/02/18 14:34 Ativan 2 Mg/1 Ml Vial IV 12/02/18 13:55 Not Given STAT ONE Lorazepam Confirm 12/02/18 14:14 Ativan 2 Mg/1 Ml Vial Administered 12/02/18 14:15 Dose 2 mg .ROUTE .STK-MED ONE Multivitamins Therapeutic 1 tab 12/02/18 13:54 12/02/18 15:03 Theragran Multivitamin PO 12/02/18 13:55 1 tab STAT ONE Administration Ondansetron HCl 4 mg 12/02/18 13:52 12/02/18 14:28 Zofran 4 Mg/2 Ml Vial IV 12/02/18 13:53 4 mg STAT ONE Administration Ondansetron HCl Confirm 12/02/18 14:18 Zofran 4 Mg/2 Ml Vial Administered 12/02/18 14:19 Dose 4 mg .ROUTE .STK-MED ONE Thiamine HCl 100 mg 12/02/18 13:54 12/02/18 14:24 Thiamine 200 Mg/2 Ml IV 12/02/18 13:55 100 mg STAT ONE Administration Thiamine HCl Confirm 12/02/18 14:18 Thiamine 200 Mg/2 Ml Administered 12/02/18 14:19 Dose 200 mg .ROUTE .STK-MED ONE Lab/Rad Data: Laboratory Result Diagrams 12/02/18 13:52 12/02/18 13:52 Laboratory Results 12/02/18 12/02/18 12/02/18 Range/Units 17:06 17:06 15:12 WBC (4.0-10.5) K/mm3 RBC (4.1-5.6) M/mm3 Hgb (12.5-18.0) gm/dl Hct (42-50) % MCV (78-100) fl MCH (26-32) pg MCHC (32-36) g/dl RDW (11.5-14.0) % Plt Count (150-450) K/mm3 MPV (6-9.5) fl Gran % (36.0-66.0) % Eos # (Auto) (0-0.5) Absolute Lymphs (auto) (1.0-4.6) Absolute Monos (auto) (0.0-1.3) Lymphocytes % (24.0-44.0) % Monocytes % (0.0-12.0) % Eosinophils % (0.00-5.0) % Basophils % (0.0-0.4) % Absolute Granulocytes (1.4-6.9) Basophils # (0-0.4) PT (8.83-12.87) SECONDS INR (0.8-3.0) D-Dimer (215-500) ng/mL Sodium (137-145) mmol/L Potassium (3.5-5.1) mmol/L Chloride (98-107) mmol/L Carbon Dioxide (22-30) mmol/L Anion Gap (5-15) MEQ/L BUN (9-20) mg/dL Creatinine (0.66-1.25) mg/dL Estimated GFR ML/MIN Glucose (74-106) mg/dL Calcium (8.4-10.2) mg/dL Magnesium (1.6-2.3) mg/dL Total Bilirubin (0.2-1.3) mg/dL AST (17-59) U/L ALT (0-50) U/L Alkaline Phosphatase (38-126) U/L Troponin I < 0.012 (0.000-0.034) ng/mL Serum Total Protein (6.3-8.2) g/dL Albumin (3.5-5.0) g/dL Amylase (30-110) U/L Lipase (23-300) U/L Urine Color (YELLOW) Urine Appearance (CLEAR) Urine pH (5-6) Ur Specific [place] (1.005-1.025) Urine Protein (Negative) Urine Ketones (NEGATIVE) Urine Blood (0-5) Js/ul Urine Nitrite (NEGATIVE) Urine Bilirubin (NEGATIVE) Urine Urobilinogen (0-1) mg/dL Ur Leukocyte Esterase (NEGATIVE) Urine WBC (Auto) (0-5) /HPF Urine RBC (Auto) (0-2) /HPF U Hyaline Cast (Auto) (0-2) /LPF U Epithel Cells (Auto) (FEW) /HPF Urine Bacteria (Auto) (NEGATIVE) /HPF Urine Mucus (Auto) (NEGATIVE) /HPF Urine Culture Reflexed (NO) Urine Glucose (NEGATIVE) mg/dL Urine Opiates Level NEGATIVE (NEGATIVE) Ur Methadone NEGATIVE (NEGATIVE) Urine Barbiturates NEGATIVE (NEGATIVE) Ur Phencyclidine (PCP) NEGATIVE (NEGATIVE) Urine Amphetamine NEGATIVE (NEGATIVE) U Benzodiazepine Level NEGATIVE (NEGATIVE) Urine Cocaine NEGATIVE (NEGATIVE) Urine Marijuana (THC) NEGATIVE (NEGATIVE) Ethyl Alcohol 199 H (0-10) mg/dL 12/02/18 12/02/18 12/02/18 Range/Units 15:12 14:00 13:52 WBC (4.0-10.5) K/mm3 RBC (4.1-5.6) M/mm3 Hgb (12.5-18.0) gm/dl Hct (42-50) % MCV (78-100) fl MCH (26-32) pg MCHC (32-36) g/dl RDW (11.5-14.0) % Plt Count (150-450) K/mm3 MPV (6-9.5) fl Gran % (36.0-66.0) % Eos # (Auto) (0-0.5) Absolute Lymphs (auto) (1.0-4.6) Absolute Monos (auto) (0.0-1.3) Lymphocytes % (24.0-44.0) % Monocytes % (0.0-12.0) % Eosinophils % (0.00-5.0) % Basophils % (0.0-0.4) % Absolute Granulocytes (1.4-6.9) Basophils # (0-0.4) PT 10.1 (8.83-12.87) SECONDS INR 0.90 (0.8-3.0) D-Dimer 6379 H* (215-500) ng/mL Sodium (137-145) mmol/L Potassium (3.5-5.1) mmol/L Chloride (98-107) mmol/L Carbon Dioxide (22-30) mmol/L Anion Gap (5-15) MEQ/L BUN (9-20) mg/dL Creatinine (0.66-1.25) mg/dL Estimated GFR ML/MIN Glucose (74-106) mg/dL Calcium (8.4-10.2) mg/dL Magnesium (1.6-2.3) mg/dL Total Bilirubin (0.2-1.3) mg/dL AST (17-59) U/L ALT (0-50) U/L Alkaline Phosphatase (38-126) U/L Troponin I 0.012 (0.000-0.034) ng/mL Serum Total Protein (6.3-8.2) g/dL Albumin (3.5-5.0) g/dL Amylase (30-110) U/L Lipase (23-300) U/L Urine Color YELLOW (YELLOW) Urine Appearance SLIGHTLY CLOUDY (CLEAR) Urine pH 5.0 (5-6) Ur Specific [place] 1.016 (1.005-1.025) Urine Protein 30 (Negative) Urine Ketones MODERATE (NEGATIVE) Urine Blood NEGATIVE (0-5) Js/ul Urine Nitrite NEGATIVE (NEGATIVE) Urine Bilirubin NEGATIVE (NEGATIVE) Urine Urobilinogen NEGATIVE (0-1) mg/dL Ur Leukocyte Esterase NEGATIVE (NEGATIVE) Urine WBC (Auto) 0-2 (0-5) /HPF Urine RBC (Auto) NONE (0-2) /HPF U Hyaline Cast (Auto) 11-25 (0-2) /LPF U Epithel Cells (Auto) NONE (FEW) /HPF Urine Bacteria (Auto) NONE (NEGATIVE) /HPF Urine Mucus (Auto) SLIGHT (NEGATIVE) /HPF Urine Culture Reflexed NO (NO) Urine Glucose NEGATIVE (NEGATIVE) mg/dL Urine Opiates Level (NEGATIVE) Ur Methadone (NEGATIVE) Urine Barbiturates (NEGATIVE) Ur Phencyclidine (PCP) (NEGATIVE) Urine Amphetamine (NEGATIVE) U Benzodiazepine Level (NEGATIVE) Urine Cocaine (NEGATIVE) Urine Marijuana (THC) (NEGATIVE) Ethyl Alcohol (0-10) mg/dL 12/02/18 12/02/18 Range/Units 13:52 13:52 WBC 8.0 (4.0-10.5) K/mm3 RBC 3.97 L (4.1-5.6) M/mm3 Hgb 15.6 (12.5-18.0) gm/dl Hct 44.3 (42-50) % MCV 111.6 H (78-100) fl MCH 39.2 H (26-32) pg MCHC 35.2 (32-36) g/dl RDW 12.2 (11.5-14.0) % Plt Count 108 L (150-450) K/mm3 MPV 10.4 H (6-9.5) fl Gran % 60.5 (36.0-66.0) % Eos # (Auto) 0.08 (0-0.5) Absolute Lymphs (auto) 2.20 (1.0-4.6) Absolute Monos (auto) 0.85 (0.0-1.3) Lymphocytes % 27.4 (24.0-44.0) % Monocytes % 10.6 (0.0-12.0) % Eosinophils % 1.0 (0.00-5.0) % Basophils % 0.5 (0.0-0.4) % Absolute Granulocytes 4.86 (1.4-6.9) Basophils # 0.04 (0-0.4) PT (8.83-12.87) SECONDS INR (0.8-3.0) D-Dimer (215-500) ng/mL Sodium 139 (137-145) mmol/L Potassium 4.2 (3.5-5.1) mmol/L Chloride 95 L (98-107) mmol/L Carbon Dioxide 16 L* (22-30) mmol/L Anion Gap 32.5 H (5-15) MEQ/L BUN 16 (9-20) mg/dL Creatinine 0.95 (0.66-1.25) mg/dL Estimated GFR > 60.0 ML/MIN Glucose 82 (74-106) mg/dL Calcium 9.9 (8.4-10.2) mg/dL Magnesium 1.6 (1.6-2.3) mg/dL Total Bilirubin 1.50 H (0.2-1.3) mg/dL AST 136 H (17-59) U/L ALT 71 H (0-50) U/L Alkaline Phosphatase 123 (38-126) U/L Troponin I (0.000-0.034) ng/mL Serum Total Protein 7.9 (6.3-8.2) g/dL Albumin 4.8 (3.5-5.0) g/dL Amylase 90 (30-110) U/L Lipase 183 (23-300) U/L Urine Color (YELLOW) Urine Appearance (CLEAR) Urine pH (5-6) Ur Specific [place] (1.005-1.025) Urine Protein (Negative) Urine Ketones (NEGATIVE) Urine Blood (0-5) Js/ul Urine Nitrite (NEGATIVE) Urine Bilirubin (NEGATIVE) Urine Urobilinogen (0-1) mg/dL Ur Leukocyte Esterase (NEGATIVE) Urine WBC (Auto) (0-5) /HPF Urine RBC (Auto) (0-2) /HPF U Hyaline Cast (Auto) (0-2) /LPF U Epithel Cells (Auto) (FEW) /HPF Urine Bacteria (Auto) (NEGATIVE) /HPF Urine Mucus (Auto) (NEGATIVE) /HPF Urine Culture Reflexed (NO) Urine Glucose (NEGATIVE) mg/dL Urine Opiates Level (NEGATIVE) Ur Methadone (NEGATIVE) Urine Barbiturates (NEGATIVE) Ur Phencyclidine (PCP) (NEGATIVE) Urine Amphetamine (NEGATIVE) U Benzodiazepine Level (NEGATIVE) Urine Cocaine (NEGATIVE) Urine Marijuana (THC) (NEGATIVE) Ethyl Alcohol 263 H (0-10) mg/dL - Progress Progress: improved Progress Note: 12/02/18 17:42 Pt improved, did not vomit, denies severe pain, reviewed his CT and X ray results, labs, repeat troponin is negative, alcohol level: 199, discussed with him and his family, he is being discharged to rest x 2-3 days, drink plenty of fluids, no alcohol and follow up with his physician this week. Counseled pt/family regarding: lab results, diagnosis, need for follow-up, rad results - Departure Departure Disposition: Home Clinical Impression: Alcohol intoxication Qualifiers: Complication of substance-induced condition: uncomplicated Qualified Code(s): F10.920 - Alcohol use, unspecified with intoxication, uncomplicated Abdominal pain Qualifiers: Abdominal location: epigastric Qualified Code(s): R10.13 - Epigastric pain Alcohol dependence Qualifiers: Substance use status: uncomplicated Qualified Code(s): F10.20 - Alcohol dependence, uncomplicated Condition: Stable Critical Care Time: No Referrals: JAKOB MCBRIDE MD [Primary Care Provider] - Instructions: Vomiting -- Adult, Alcohol Abuse and Alcoholism (DC), Alcohol Poisoning (DC) Additional Instructions: Rest x 2-3 days, drink plenty of fluids, (No alcohol! ), follow up with your physician this week, return if severe pain, vomiting, confusion, or fever > 102 F! Prescriptions: Ondansetron ODT 4 MG [Zofran Odt 4 mg] 4 mg PO Q6H PRN PRN #10 tab.rapdis PRN Reason: Nausea/Vomiting Chlordiazepoxide/Clidinium Br [Librax Capsule] 1 each PO Q8H PRN #15 capsule PRN Reason: Moderate Pain
[2018-12-02] MEDS ORDERED: Ativan 2 MG/1 ML VIAL ONE (14:14)
[2018-12-02] MEDS ORDERED: Zofran 4 MG/2 ML VIAL ONE (14:18)
[2018-12-02] MEDS ORDERED: THIAMINE 200 MG/2 ML ONE (14:18)
[2018-12-02 14:21] LABS: INR 0.9 (0.8-3.0); PROTIME 10.1 SECONDS (8.83-12.87)
[2018-12-02 14:26] LABS: ALBUMIN 4.8 g/dL (3.5-5.0); ALKALINE PHOSPHATASE 123 U/L (38-126); AMYLASE 90 U/L (30-110); ANION GAP 32.5 MEQ/L (5-15); BLOOD UREA NITROGEN 16 mg/dL (9-20); CHLORIDE 95 mmol/L (98-107); Calcium 9.9 mg/dL (8.4-10.2); Creatinine 1 0.95 mg/dL (0.66-1.25); ETHYL ALCOHOL 263 mg/dL (0-10); Glucose 82 mg/dL (74-106); LIPASE 183 U/L (23-300); MAGNESIUM 1.6 mg/dL (1.6-2.3); Potassium 4.2 mmol/L (3.5-5.1); SGOT/AST 136 U/L (17-59); SGPT/ALT 71 U/L (0-50); SODIUM 139 mmol/L (137-145); Total Protein 7.9 g/dL (6.3-8.2)
[2018-12-02 14:29] LABS: Carbon Dioxide 16 mmol/L (22-30)
[2018-12-02 14:34] LABS: BASOPHIL % 0.5 % (0.0-0.4); Basophil (Absolute #) 0.04 (0-0.4); Eosinophil (Absolute #) 0.08 (0-0.5); Granulocyte Absolute (ANC) 4.86 (1.4-6.9); Granulocytes % 60.5 % (36.0-66.0); Hematocrit 44.3 % (42-50); Hemoglobin 15.6 gm/dl (12.5-18.0); Lymphocytes % 27.4 % (24.0-44.0); Mean Cell Volume 111.6 fl (78-100); Mean Corpuscular Hgb Concent. 35.2 g/dl (32-36); Mean Platelet Volume 10.4 fl (6-9.5); Monocyte (Absolute #) 0.85 (0.0-1.3); Monocytes % 10.6 % (0.0-12.0); Platelet Count 108 K/mm3 (150-450); Red Blood Count 3.97 M/mm3 (4.1-5.6); Red Cell Distribution Width 12.2 % (11.5-14.0)
[2018-12-02 14:36] LABS: Mean Corpuscular Hemoglobin 39.2 pg (26-32)
[2018-12-02 15:33] LABS: Appearance SLIGHTLY CLOUDY (CLEAR); Bilirubin NEGATIVE (NEGATIVE); Blood NEGATIVE Ery/ul (0-5); Glucose NEGATIVE (NEGATIVE); Ketones MODERATE (NEGATIVE); Leukocyte Esterase NEGATIVE (NEGATIVE); Mucus SLIGHT /HPF (NEGATIVE); Nitrite NEGATIVE (NEGATIVE); Protein,Urine Dip 30 (Negative); Specific Gravity 1.016 (1.005-1.025); Urobilinogen NEGATIVE mg/dL (0-1); WBC 0-2 /HPF (0-5)
[2018-12-02 15:44] LABS: Amphetamine,Urine NEGATIVE (NEGATIVE); Barbiturate,Urine NEGATIVE (NEGATIVE); Benzodiazepine,Urine NEGATIVE (NEGATIVE); Cocaine,Urine NEGATIVE (NEGATIVE); Methadone,Urine NEGATIVE (NEGATIVE); Opiate,Urine NEGATIVE (NEGATIVE); PCP,Urine NEGATIVE (NEGATIVE); THC,Urine NEGATIVE (NEGATIVE)
[2018-12-02] MEDS ORDERED: Adacel Vial IM ONE ×2 (17:52→18:13)
[2018-12-02] MEDS ORDERED: ZOFRAN ODT 4 MG PO ONE (18:29)
[2018-12-02] MEDS ORDERED: ZOFRAN ODT 4 MG ONE (18:31)
[2018-12-02] MEDS: LIBRAX PO PRN ×2 (18:32→18:47)
[2018-12-02 18:41] VITALS: BP 166/84; PULSE 70; O2SAT 98
--- NOTE | 2018-12-02 20:29 | XRAY ---
Indication: Vomiting. Elevated d-dimer. Multiple contiguous axial images obtained through the chest using 100 cc Isovue-370 contrast. Comparison: None There is good opacification of the pulmonary arteries to include the lobar and segmental branches. No filling defect or pulmonary embolus. Heart is not enlarged. Aorta is minimally atherosclerotic without aneurysm/dissection. A few right hilar calcified nodes. No pathologic mediastinal/hilar lymphadenopathy. Lungs are inflated with minimal right base fibrosis/scarring. No suspicious pulmonary mass, infiltrate, or effusion. Bony thorax intact with healing midsternum fracture. CT abdomen reported separately. Impression: 1. Negative pulmonary embolus. No acute cardiopulmonary abnormalities. 2. Incidental right hilar calcified nodes and healing sternum fracture. Comment: Preliminary interpretation was made by C. No critical discrepancy. CTDI 16.87
--- NOTE | 2018-12-02 20:32 | XRAY ---
Indication: Vomiting and diarrhea. Elevated d-dimer. Multiple contiguous axial images obtained through the abdomen and pelvis using 100 cc Isovue-370 contrast only. Comparison: None CT chest reported separately. Noncontrasted stomach and bowel loops appear nonobstructed. Appendix not seen. Ascending colon and lesser degree transverse colon demonstrates circumferential wall thickening favoring colitis. Tiny right paracolic gutter and pelvic free fluid presumed reactive. No walled off fluid collection or free air. Diffuse fatty liver, calcified splenic granulomas, and 3.5 cm right renal exophytic cyst. Remaining liver, gallbladder, pancreas, spleen, adrenal glands, kidneys, ureters, and bladder appear unremarkable for noncontrast exam. Heavy scattered vascular calcifications. No AAA or pathological retroperitoneal lymphadenopathy. Osseous structures intact with mild degenerative changes throughout the spine. Impression: 1. CT findings favoring right colon colitis. Small reactive free fluid. No perforation. 2. Incidental fatty liver, calcified splenic granulomas, and right renal cyst. Comment: Preliminary interpretation was made by [facility]. No critical discrepancy. CTDI 9.54
--- NOTE | 2018-12-02 20:34 | XRAY ---
Indication: Vomiting. Cough. Comparison: May 25, 2018. Portable chest remains hyperinflated and clear. Heart is not enlarged. Bony thorax intact. Impression: Stable nonacute hyperinflated chest.
[2018-12-02] MEDS ORDERED: LIBRIUM 25 MG PO SCH (22:00)
== END 2018-12-02 19:00 | disposition home or self-care (01) ==
LOC: ED 13:22
DX: F10.920 Alcohol use, unspecified with intoxication, uncomplicated (principal); R10.13 Epigastric pain; F10.20 Alcohol dependence, uncomplicated
CPT/HCPCS: 36415; 71045; 71260; 74177; 80053; 80307; 81001; 82150; 83690; 83735; 84484; 85025; 85379; 85610; 90471; 90715; 93005; 96360; 96374; 96375; 99285; J2060; J2405; Q0162; A9270-GY; G0480

== ENCOUNTER 2020-04-03 12:30 | Emergency (ER) | payer BC, OTHER ==
[2020-04-03] MEDS ORDERED: Sodium Chloride 0.9% 1000 ML 1,000 ML IV STA (12:48)
[2020-04-03] MEDS ORDERED: PROTONIX 40 MG IV IV ONE ×2 (12:48→12:55)
[2020-04-03] MEDS ORDERED: Sodium Chloride 0.9% 1000 ML 1,000 ML ONE ×2 (12:55→15:20)
[2020-04-03 13:11] LABS: Absolute Neutrophil Ct (ANC) 8.87 (1.4-6.9); BASOPHIL % 0.2 % (0.0-0.4); Basophil (Absolute #) 0.02 (0-0.4); Eosinophil (Absolute #) 0.24 (0-0.5); Hematocrit 44.3 % (42-50); Hemoglobin 14.5 gm/dl (12.5-18.0); Lymphocyte (Absolute #) 1.83 (1.0-4.6); Lymphocytes % 15.4 % (24.0-44.0); Mean Cell Volume 99.1 fl (78-100); Mean Corpuscular Hemoglobin 32.4 pg (26-32); Mean Corpuscular Hgb Concent. 32.7 g/dl (32-36); Mean Platelet Volume 10.8 fl (7.5-11.0); Monocyte (Absolute #) 0.93 (0.0-1.3); Monocytes % 7.8 % (0.0-12.0); Neutrophil % 74.6 % (36.0-66.0); Platelet Count 306 K/mm3 (150-450); Red Blood Count 4.47 M/mm3 (4.1-5.6); Red Cell Distribution Width 12.5 % (11.5-14.0); White Blood Count 11.9 K/mm3 (4.0-10.5)
[2020-04-03 13:22] LABS: ALBUMIN 4.3 g/dL (3.5-5.0); ALKALINE PHOSPHATASE 124 U/L (38-126); AMYLASE 55 U/L (30-110); ANION GAP 14.6 MEQ/L (5-15); BLOOD UREA NITROGEN 15 mg/dL (9-20); CHLORIDE 96 mmol/L (98-107); Carbon Dioxide 28 mmol/L (22-30); Creatinine 1 1.04 mg/dL (0.66-1.25); EST GLOMERULAR FILTRATION RATE > 60.0 ML/MIN; Glucose 119 mg/dL (74-106); LIPASE 39 U/L (23-300); Potassium 3.9 mmol/L (3.5-5.1); SGOT/AST 20 U/L (17-59); SGPT/ALT 10 U/L (0-50); SODIUM 135 mmol/L (137-145); Total Protein 8.1 g/dL (6.3-8.2)
--- NOTE | 2020-04-03 13:33 | ERPHSYRPT ---
- History of Present Illness Time Seen by Provider: 04/03/20 12:50 Historian: patient Exam Limitations: no limitations Patient Subjective Stated Complaint: Sore throat Triage Nursing Assessment: Patient ambulated back to ED and transferred to bed p er self. Patient A+O X3. Patient's skin pink, warm and dry. Patient complains of sore throat costant aching pain 4/10 that started one week prior to Thanksgiving. Patient complains of headache and intermittent chest pain. Patient states he hasn't been able to eat or drink anything in the past 3 days. Throat noted to be red. Physician History: This is a 59-year-old white male who smokes cigarettes daily and is done so for 30 years. In addition he drinks alcohol on a daily basis. Primarily whiskey. Patient presents with several week history of worsening sore throat with associated right-sided chest pain and dysphagia. Patient states that he has not had an alcohol drink in over 2 months. However, because of headache and sore throat pain he has only taken sips of whiskey on occasion. Patient has had associated weight loss as well. He has not had hematemesis, hemoptysis or rectal bleeding. He has a history of hypertension. Timing/Duration: week(s) (Several weeks), other Quality: sharpness, stabbing Abdominal Pain Onset Location: epigastric Pain Radiation: other (Right chest) Severity of Pain-Max: mild Severity of Pain-Current: mild Modifying Factors: Improves With: other (Symptoms worsen with swallowing) Associated Symptoms: chest pain, loss of appetite, other (Weight loss) Previous symptoms: no prior history Allergies/Adverse Reactions: No Known Drug Allergies Allergy (Verified 04/03/20 12:47) Hx Tetanus, Diphtheria Vaccination/Date Given: No Hx Influenza Vaccination/Date Given: No Hx Pneumococcal Vaccination/Date Given: No Immunizations Up to Date: Yes Travel Risk - International Travel Have you traveled outside of the country in past 3 weeks: No - Coronavirus Screening Are you exhibiting any of the following symptoms?: Yes Symptoms: Headaches/Body Aches/Fatigue - Review of Systems Constitutional: Weakness Eyes: No Symptoms Ears, Nose, & Throat: Painful Swallowing Respiratory: No Symptoms Cardiac: Chest Pain (Side) Abdominal/Gastrointestinal: No Symptoms Genitourinary Symptoms: No Symptoms Musculoskeletal: No Symptoms Skin: No Symptoms Neurological: No Symptoms Psychological: No Symptoms Endocrine: No Symptoms Hematologic/Lymphatic: No Symptoms Immunological/Allergic: No Symptoms All Other Systems: Reviewed and Negative - Past Medical History Pertinent Past Medical History: Yes Neurological History: No Pertinent History ENT History: No Pertinent History Cardiac History: Hypertension Respiratory History: No Pertinent History Endocrine Medical History: No Pertinent History Musculoskeletal History: Fractures GI Medical History: Other History: No Pertinent History Psycho-Social History: Other Male Reproductive Disorders: No Pertinent History Other Medical History: dizziness, liver inflammation d/t alcohol intake, alcoholism, broken jaw - Past Surgical History Past Surgical History: Yes Neuro Surgical History: No Pertinent History Cardiac: No Pertinent History Respiratory: No Pertinent History Gastrointestinal: No Pertinent History Genitourinary: No Pertinent History Musculoskeletal: Orthopedic Surgery Male Surgical History: No Pertinent History Other Surgical History: tonsiliectomy, surgery on jaw - Social History Smoking Status: Current every day smoker How long have you smoked: 30 years Exposure to second hand smoke: No Drug Use: none Patient Lives Alone: No - Nursing Vital Signs Nursing Vital Signs: Initial Vital Signs Temperature 98.1 F 04/03/20 12:49 Pulse Rate 98 H 04/03/20 12:49 Respiratory Rate 18 04/03/20 12:49 Blood Pressure 173/110 04/03/20 12:49 O2 Sat by Pulse Oximetry 93 L 04/03/20 12:49 Pain Scale Pain Intensity 3 - Physical Exam General Appearance: mild distress, alert, anxiety, thin Eye Exam: PERRL/EOMI, eyes nml inspection Ears, Nose, Throat Exam: normal ENT inspection, moist mucous membranes, pharyngeal erythema Neck Exam: normal inspection, non-tender, supple, full range of motion, No lymphadenopathy Respiratory Exam: normal breath sounds, chest tenderness (Side right), lungs clear, airway intact, No respiratory distress Cardiovascular Exam: regular rate/rhythm, normal heart sounds, normal peripheral pulses Gastrointestinal/Abdomen Exam: soft, normal bowel sounds, No tenderness Back Exam: normal inspection, normal range of motion, No CVA tenderness, No v ertebral tenderness Extremity Exam: normal inspection, normal range of motion, pelvis stable Neurologic Exam: alert, oriented x 3, cooperative, 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 Comparison EKG dated 12/02/2018 was reviewed. There are no significant changes.) Ordered Tests: Active Orders 24 hr Category Date Time Status EKG-ER Only STAT Care 04/03/20 12:48 Active IV Insertion STAT Care 04/03/20 12:48 Active ABDOMEN AND PELVIS W CONTRAST [CT] Stat Exams 04/03/20 12:49 Taken CHEST WITH CONTRAST [CT] Stat Exams 04/03/20 12:50 Completed AMYLASE Stat Lab 04/03/20 13:14 Completed Alcohol [ETHYL ALCOHOL] Stat Lab 04/03/20 13:36 Completed CBC W DIFF Stat Lab 04/03/20 13:14 Completed CMP Stat Lab 04/03/20 13:14 Completed INFLUENZA A+B RAÚL Stat Lab 04/03/20 14:00 Completed LIPASE Stat Lab 04/03/20 13:14 Completed Lactic Acid Stat Lab 04/03/20 12:59 Completed Glynn Screen Stat Lab 04/03/20 Completed TROPONIN Q3H Lab 04/03/20 13:14 Completed TROPONIN Q3H Lab 04/03/20 16:00 Ordered TROPONIN Q3H Lab 04/03/20 19:00 Ordered TROPONIN Q3H Lab 04/03/20 22:00 Ordered TROPONIN Q3H Lab 04/04/20 01:00 Ordered UA W/RFX UR CULTURE Stat Lab 04/03/20 12:48 Ordered Medication Summary Generic Name Dose Route Start Last Admin Trade Name Freq PRN Reason Stop Dose Admin Sodium Chloride 1,000 mls @ 100 mls/hr 04/03/20 15:30 Sodium Chloride 0.9% 1000 Ml IV 05/03/20 15:29 .Q10H JACKI Discontinued Medications Generic Name Dose Route Start Last Admin Trade Name Freq PRN Reason Stop Dose Admin Enalaprilat 1.25 mg 04/03/20 15:19 Vasotec I.V. 2.5 Mg IV 04/03/20 15:20 STAT ONE Enalaprilat Confirm 04/03/20 15:20 Vasotec I.V. 2.5 Mg Administered 04/03/20 15:21 Dose 2.5 mg IV .STK-MED ONE Sodium Chloride 1,000 mls @ 999 mls/hr 04/03/20 12:48 04/03/20 14:01 Sodium Chloride 0.9% 1000 Ml IV 04/03/20 13:48 Infused .Q1H1M STA Infusion Sodium Chloride Confirm 04/03/20 12:55 Sodium Chloride 0.9% 1000 Ml Administered 04/03/20 12:56 Dose 1,000 mls @ ud .ROUTE .STK-MED ONE Pantoprazole Sodium 40 mg 04/03/20 12:48 04/03/20 12:58 Protonix 40 Mg Iv IV 04/03/20 12:49 40 mg STAT ONE Administration Pantoprazole Sodium Confirm 04/03/20 12:55 Protonix 40 Mg Iv Administered 04/03/20 12:56 Dose 40 mg IV .STK-MED ONE Lab/Rad Data: Laboratory Result Diagrams 04/03/20 13:14 04/03/20 13:14 Laboratory Results 04/03/20 04/03/20 04/03/20 Range/Units Unknown 14:00 14:00 WBC (4.0-10.5) K/mm3 RBC (4.1-5.6) M/mm3 Hgb (12.5-18.0) gm/dl Hct (42-50) % MCV (78-100) fl MCH (26-32) pg MCHC (32-36) g/dl RDW (11.5-14.0) % Plt Count (150-450) K/mm3 MPV (7.5-11.0) fl Gran % (36.0-66.0) % Eos # (Auto) (0-0.5) Absolute Lymphs (auto) (1.0-4.6) Absolute Monos (auto) (0.0-1.3) Lymphocytes % (24.0-44.0) % Monocytes % (0.0-12.0) % Eosinophils % (0.00-5.0) % Basophils % (0.0-0.4) % Absolute Granulocytes (1.4-6.9) Basophils # (0-0.4) Sodium (137-145) mmol/L Potassium (3.5-5.1) mmol/L Chloride (98-107) mmol/L Carbon Dioxide (22-30) mmol/L Anion Gap (5-15) MEQ/L BUN (9-20) mg/dL Creatinine (0.66-1.25) mg/dL Estimated GFR ML/MIN Glucose (74-106) mg/dL Lactic Acid (0.4-2.0) Calcium (8.4-10.2) mg/dL Total Bilirubin (0.2-1.3) mg/dL AST (17-59) U/L ALT (0-50) U/L Alkaline Phosphatase (38-126) U/L Troponin I (0.000-0.034) ng/mL Serum Total Protein (6.3-8.2) g/dL Albumin (3.5-5.0) g/dL Amylase (30-110) U/L Lipase (23-300) U/L Ethyl Alcohol (0-10) mg/dL Monoscreen NEGATIVE (Negative) Influenza Type A Ag NEGATIVE (NEGATIVE) Influenza Type B Ag NEGATIVE (NEGATIVE) Group A Strep Antibody NOT DETECTED (NEGATIVE) 04/03/20 04/03/20 04/03/20 Range/Units 13:36 13:14 13:14 WBC (4.0-10.5) K/mm3 RBC (4.1-5.6) M/mm3 Hgb (12.5-18.0) gm/dl Hct (42-50) % MCV (78-100) fl MCH (26-32) pg MCHC (32-36) g/dl RDW (11.5-14.0) % Plt Count (150-450) K/mm3 MPV (7.5-11.0) fl Gran % (36.0-66.0) % Eos # (Auto) (0-0.5) Absolute Lymphs (auto) (1.0-4.6) Absolute Monos (auto) (0.0-1.3) Lymphocytes % (24.0-44.0) % Monocytes % (0.0-12.0) % Eosinophils % (0.00-5.0) % Basophils % (0.0-0.4) % Absolute Granulocytes (1.4-6.9) Basophils # (0-0.4) Sodium 135 L (137-145) mmol/L Potassium 3.9 (3.5-5.1) mmol/L Chloride 96 L (98-107) mmol/L Carbon Dioxide 28 (22-30) mmol/L Anion Gap 14.6 (5-15) MEQ/L BUN 15 (9-20) mg/dL Creatinine 1.04 (0.66-1.25) mg/dL Estimated GFR > 60.0 ML/MIN Glucose 119 H (74-106) mg/dL Lactic Acid (0.4-2.0) Calcium 13.0 H* (8.4-10.2) mg/dL Total Bilirubin 1.30 (0.2-1.3) mg/dL AST 20 (17-59) U/L ALT 10 (0-50) U/L Alkaline Phosphatase 124 (38-126) U/L Troponin I < 0.012 (0.000-0.034) ng/mL Serum Total Protein 8.1 (6.3-8.2) g/dL Albumin 4.3 (3.5-5.0) g/dL Amylase 55 (30-110) U/L Lipase 39 (23-300) U/L Ethyl Alcohol < 10 (0-10) mg/dL Monoscreen (Negative) Influenza Type A Ag (NEGATIVE) Influenza Type B Ag (NEGATIVE) Group A Strep Antibody (NEGATIVE) 04/03/20 04/03/20 Range/Units 13:14 12:59 WBC 11.9 H (4.0-10.5) K/mm3 RBC 4.47 (4.1-5.6) M/mm3 Hgb 14.5 (12.5-18.0) gm/dl Hct 44.3 (42-50) % MCV 99.1 (78-100) fl MCH 32.4 H (26-32) pg MCHC 32.7 (32-36) g/dl RDW 12.5 (11.5-14.0) % Plt Count 306 (150-450) K/mm3 MPV 10.8 (7.5-11.0) fl Gran % 74.6 H (36.0-66.0) % Eos # (Auto) 0.24 (0-0.5) Absolute Lymphs (auto) 1.83 (1.0-4.6) Absolute Monos (auto) 0.93 (0.0-1.3) Lymphocytes % 15.4 L (24.0-44.0) % Monocytes % 7.8 (0.0-12.0) % Eosinophils % 2.0 (0.00-5.0) % Basophils % 0.2 (0.0-0.4) % Absolute Granulocytes 8.87 H (1.4-6.9) Basophils # 0.02 (0-0.4) Sodium (137-145) mmol/L Potassium (3.5-5.1) mmol/L Chloride (98-107) mmol/L Carbon Dioxide (22-30) mmol/L Anion Gap (5-15) MEQ/L BUN (9-20) mg/dL Creatinine (0.66-1.25) mg/dL Estimated GFR ML/MIN Glucose (74-106) mg/dL Lactic Acid 1.9 (0.4-2.0) Calcium (8.4-10.2) mg/dL Total Bilirubin (0.2-1.3) mg/dL AST (17-59) U/L ALT (0-50) U/L Alkaline Phosphatase (38-126) U/L Troponin I (0.000-0.034) ng/mL Serum Total Protein (6.3-8.2) g/dL Albumin (3.5-5.0) g/dL Amylase (30-110) U/L Lipase (23-300) U/L Ethyl Alcohol (0-10) mg/dL Monoscreen (Negative) Influenza Type A Ag (NEGATIVE) Influenza Type B Ag (NEGATIVE) Group A Strep Antibody (NEGATIVE) - Progress Progress: unchanged, re-examined Progress Note: 04/03/20 15:13 CAT scan of the chest with contrast shows a markedly abnormal CAT scan of the chest findings are most consistent with esophageal cancer beginning just above the level of the aortic arch and extending into the subcarinal projection there is severe compromise of the mid thoracic esophageal lumen there is extensive surrounding abnormal mediastinal lymphadenopathy believed to be due to extensive metastatic disease. 04/03/20 15:23 Cat scan of the abdomen and pelvis with contrast reveals no acute intra- abdominal or intrapelvic abnormalities Medical decision making: This patient has dysphagia hypertension and near complete obstructing esophageal mass. He is having more difficulty controlling his secretions and is not taking enough oral intake to support him physically/medically. I spoke with his primary care doctor, Dr. Mcbride, and I reviewed the history, condition, physical findings, laboratory, EKG and radiographic study reports/results with him. Dr. Mcbride and I both agree that the patient would be best served at a facility that can offer him IV hydration including total parenteral nutrition if needed, general surgery for placement of a feeding tube, gastroenterology consultation for arrangements for biopsy and other possible intervention, and oncology consultation. I consulted the hospitalist, Dr. Brady, at [facility]. I reviewed the same information ab out this patient with him. He accepts the patient in transfer. Counseled pt/family regarding: lab results, diagnosis, need for follow-up - Departure Departure Disposition: Transfer Clinical Impression: Hypertension, Esophageal mass, Esophageal obstruction, Dysphagia Condition: Stable Critical Care Time: No Referrals: JAKOB MCBRIDE MD [Primary Care Provider] -
[2020-04-03 14:47] LABS: INFLUENZA A NEGATIVE (NEGATIVE); INFLUENZA B NEGATIVE (NEGATIVE)
--- NOTE | 2020-04-03 14:59 | XRAY ---
Exam: CT of the chest with IV contrast from 04/03/2020. Total DLP: 678.93 mGy-cm Comparison: CT of the chest with IV contrast from 12/02/2018. Indication: 59-year-old male with dysphagia/trouble swallowing for one month, worse in past week; also complains of pain within right side of upper chest; dysphagia. Technique: Post-IV contrast axial images were obtained through the chest during automated injection of 80 cc of Isovue-370 contrast material. Reconstructed coronal and sagittal images were created and reviewed. Findings: The lower cervical and proximal thoracic esophagus is abnormally dilated measuring up to 5.3 cm in width and 3.3 cm in AP depth on axial image #11 of series 6. At the inferior margin of this distention, I note a small amount of intraluminal debris before the esophageal lumen is almost completely obstructed. There is marked abnormal surrounding paraesophageal soft tissue mass density extending from just above the level of the aortic arch down to the infracarinal region. In addition, there is new marked abnormal mediastinal lymphadenopathy within the superior mediastinum, right paratracheal projection, pericarinal region, and subcarinal region. I cannot exclude a small abnormal lymph node at the anterior margin of the right hilum on axial image #33 as well. This large mass appears to efface the posterior aspect of the proximal thoracic trachea as well. The findings are most consistent with esophageal carcinoma with surrounding metastatic disease within the mediastinum. Some granulomatous calcifications are again seen within the right infrahilar projection. The major central branching bronchi appear open on the coronal images. I see no abnormal axillary lymphadenopathy. The peripheral lungs reveal no infiltrates, pleural fluid, or pneumothorax. There is no evidence of interstitial lung disease. No definite abnormal soft tissue lung nodularity is seen. The patient is noted to be very thin. I see no evidence of metastatic bone disease. A healed fracture of the body of the sternum is seen representing improvement from 12/02/2018. Mild thoracic vertebral endplate spurring is seen. The heart size is normal without pericardial effusion. Some atherosclerotic vascular calcification is seen. Moderate degenerative disc disease is seen at C6-C7. Impression: 1. Markedly abnormal CT scan of the chest. This study was reviewed in person with the Emergency Department physician, Dr. Lawrence Boland, at approximately 2:30 PM on 04/03/2020. The findings are most consistent with esophageal carcinoma beginning just above the level of the aortic arch and extending into the subcarinal projection. There is severe compromise of the mid thoracic esophageal lumen. Proximal thoracic esophageal dilation is seen. In addition, there is extensive surrounding abnormal mediastinal lymphadenopathy believed to be due to extensive metastatic disease. The peripheral lung cortez are essentially clear. No suspicious soft tissue lung nodules or pleural effusions are seen.
[2020-04-03] MEDS ORDERED: VASOTEC I.V. 2.5 MG IV ONE ×2 (15:19→15:20)
--- NOTE | 2020-04-03 15:22 | XRAY ---
Exam: CT of the abdomen and pelvis with IV contrast from 04/03/2020. Total DLP: 678.93 mGy-cm Comparison: CT of the abdomen and pelvis with IV contrast from 12/02/2018. Indication: 59-year-old male with difficulty swallowing for one month, worse in last week, feels like food is getting stuck, right sided chest pain. Also complains of epigastric abdominal pain. Technique: Post-IV contrast axial images were obtained through the abdomen and pelvis during automated injection of 80 cc of Isovue-370 contrast material. No oral contrast was given. Reconstructed coronal and sagittal images were created and reviewed. Findings: The liver is of unremarkable size. There appears to be some hepatic steatosis. This is better seen on the previous CT study from 12/02/2018. No definite liver lesions are seen to suggest metastatic liver disease. No intrahepatic or extrahepatic biliary duct distention is seen. The gallbladder reveals no dense calcifications within it. No gallbladder wall thickening is seen. The spleen is of normal size and reveals a few small calcified granulomas. No focal splenic mass is seen. No definite abnormality of the pancreas is seen. The pancreatic duct is not distended. No pancreatic mass or pancreatic calcifications are seen. The adrenal glands appear unremarkable. The kidneys appear of average size and shape. I again see a 3.9 cm x 2.9 cm oval-shaped cyst abutting the lateral margin of the lower pole of the right kidney. No renal calculi are seen. The kidneys function on the delay images. A solid renal mass or hydronephrosis is not seen. Portions of the ureters are opacified and appear unremarkable. Extensive atherosclerotic vascular calcification is seen within the abdominal aorta and its branches. No abdominal aortic aneurysm or definite abnormal retroperitoneal lymphadenopathy is seen. The patient is noted to be very thin with paucity of intraperitoneal fat and subcutaneous fat. There is no free intraperitoneal air or ventral abdominal wall hernia. Prior inflammatory changes within the ascending colon are not seen on the current study. The appendix appears unremarkable. There is abundant stool seen throughout the colon consistent with constipation. The pelvis reveals no suspicious soft tissue mass, enlarged pelvic lymph nodes, or free intraperitoneal fluid. The urinary bladder appears grossly unremarkable. The seminal vesicles and prostate gland reveal minimal left paracentral prostate gland calcification representing no change. The skeleton reveals a minimal rotary dextroscoliosis centered at L2 representing no change. Mild degenerative disc disease at L1-L2 and moderate degenerative disc disease at L2-L3 are again seen. Some anterolateral osteophyte formation is seen throughout the visualized lower thoracolumbar spine. Impression: 1. Prior inflammatory changes within the ascending colon on 12/02/2018 are no longer seen. However, there is extensive stool throughout the colon consistent with constipation. No abdominal bowel obstruction is seen. Nor do I see free intraperitoneal air or free intraperitoneal fluid. 2. I see no definite evidence of metastatic disease within the abdomen or pelvis. The liver appears remarkable only for some hepatic steatosis. This is better appreciated on the previous CT study from 12/02/2018. 3. I again note a moderate sized cyst abutting the lateral margin of the lower pole of the right kidney. 4. Moderate atherosclerotic vascular disease is again seen. 5. Stable skeletal findings, as discussed above.
[2020-04-03] MEDS ORDERED: Sodium Chloride 0.9% 1000 ML 1,000 ML IV SCH (15:30)
[2020-04-03 15:42] VITALS: BP 167/96; PULSE 86; O2SAT 96
[2020-04-03 21:44] LABS: Appearance CLEAR (CLEAR); Specific Gravity 1.015 (1.005-1.025)
[2020-04-03 21:45] LABS: Bacteria NONE SEEN /HPF (NEGATIVE); Bilirubin NEGATIVE (NEGATIVE); Blood NEGATIVE Ery/ul (0-5); Epithelial Cells RARE /HPF (FEW); Glucose NEGATIVE (NEGATIVE); Ketones SMALL-15 (NEGATIVE); Leukocyte Esterase NEGATIVE (NEGATIVE); Nitrite NEGATIVE (NEGATIVE); Ph 5.5 (5-6); Protein,Urine Dip NEGATIVE (Negative); RBC 0-2 /HPF (0-2); Urobilinogen 0.2 mg/dL (0-1); WBC 0-2 /HPF (0-5)
== END 2020-04-03 16:07 | disposition short-term general hospital (02) ==
LOC: ED 12:30
DX: I10 Essential (primary) hypertension (principal); K22.8 Other specified diseases of esophagus; K22.2 Esophageal obstruction; R13.10 Dysphagia, unspecified
CPT/HCPCS: 36000; 36415; 71260; 74177; 80053; 81001; 82150; 83605; 83690; 84484; 85025; 86308; 87400; 87651; 93005; 96360; 96374; 96375; 99285; G0480; 80307

== ENCOUNTER 2022-06-06 17:58 | Emergency (ER) | payer OTHER ==
[2022-06-06] MEDS ORDERED: Sodium Chloride 0.9% 1000 ML 1,000 ML IV SCH (18:15)
[2022-06-06] MEDS ORDERED: Sodium Chloride 0.9% 1000 ML 1,000 ML ONE (18:22)
[2022-06-06 18:32] LABS: Absolute Neutrophil Ct (ANC) 10.94 x10^3/uL (1.4-6.9); BASOPHIL % 0.2 % (0.0-0.4); Basophil (Absolute #) 0.02 x10^3/uL (0-0.4); Eosinophil % 0.7 % (0.00-5.0); Eosinophil (Absolute #) 0.08 x10^3/uL (0-0.5); Hematocrit 41.2 % (42-50); Hemoglobin 12.8 g/dL (12.5-18.0); IMMATURE GRAN # 0.05 x10^3u/L (0.00-0.03); IMMATURE GRAN % 0.4 % (0.00-0.4); Lymphocyte (Absolute #) 0.41 x10^3/uL (1.0-4.6); Lymphocytes % 3.4 % (24.0-44.0); Mean Cell Volume 107.3 fL (78-100); Mean Corpuscular Hemoglobin 33.3 pg (26-32); Mean Corpuscular Hgb Concent. 31.1 g/dL (32-36); Mean Platelet Volume 11.1 fL (7.5-11.0); Monocyte (Absolute #) 0.52 x10^3/uL (0.0-1.3); Monocytes % 4.3 % (0.0-12.0); Platelet Count 187 x10^3/uL (150-450); Red Blood Count 3.84 x10^6/uL (4.1-5.6); Red Cell Distribution Width 12.4 % (11.5-14.0)
[2022-06-06 18:48] LABS: ALBUMIN 4.6 g/dL (3.5-5.0); ALKALINE PHOSPHATASE 120 U/L (38-126); ANION GAP 8.9 MEQ/L (5-15); BLOOD UREA NITROGEN 27 mg/dL (9-20); CHLORIDE 100 mmol/L (98-107); Calcium 9.7 mg/dL (8.4-10.2); Carbon Dioxide 32 mmol/L (22-30); Creatinine 1 0.54 mg/dL (0.66-1.25); EST GLOMERULAR FILTRATION RATE > 60.0 ML/MIN; Glucose 119 mg/dL (74-106); LIPASE 56 U/L (23-300); Potassium 4.5 mmol/L (3.5-5.1); SGOT/AST 32 U/L (17-59); SGPT/ALT 24 U/L (0-50); SODIUM 137 mmol/L (137-145); Total Protein 8.5 g/dL (6.3-8.2)
[2022-06-06] MEDS ORDERED: XYLOCAINE 2% Uro-Jet ONE (18:53)
--- NOTE | 2022-06-06 19:19 | ERPHSYRPT ---
- History of Present Illness Time Seen by Provider: 06/06/22 19:15 Historian: patient Exam Limitations: no limitations Patient Subjective Stated Complaint: Pt states "For the past three hours I feel like I need to poop or pee and I just can't. My belly is really hurting." Triage Nursing Assessment: PT presented alert and oriented X 3, skin pwd.Pt able to speak in clear full sentences.Pt has g tube in place. Pt in no apparent respiratory distress. Pt resting on right lateral side on bed in position of comfort. Physician History: Patient is a 61-year-old male presents to our ED via EMS for evaluation of sensation of needing to urinate and defecate. Patient experiencing abdominal cramping. Symptoms started approximately 2 hours prior to arrival. Patient has a history of esophageal cancer. Patient is on hydrocodone for pain control. Symptoms are constant. Symptoms are moderate in intensity. No specific wo rsening or improving factors. Patient denies a history of the same. He voices no other complaints or concerns at this time. Portions of this note were created with voice recognition technology. There may be grammatical, spelling, punctuation or sound alike errors Timing/Duration: today Activities at Onset: none Quality: cramping Abdominal Pain Onset Location: generalized abdomen Pain Radiation: no radiation Severity of Pain-Max: moderate Severity of Pain-Current: mild Modifying Factors: Improves With: nothing Associated Symptoms: denies symptoms Previous symptoms: no prior history Allergies/Adverse Reactions: No Known Drug Allergies Allergy (Verified 04/03/20 12:47) Home Medications: Ezetimibe/Rosuvastatin Calcium [Rosuvastatin-Ezetimibe 20-10Mg] 1 each PO DAILY 06/06/22 [History] Hydrocodone/Acetaminophen [Hydrocodone-Acetamin 5-325 mg] 1 each PO DAILY 06/06/22 [History] Pembrolizumab [Keytruda] 100 mg IV UD 06/06/22 [History] Hx Tetanus, Diphtheria Vaccination/Date Given: No Hx Influenza Vaccination/Date Given: No Hx Pneumococcal Vaccination/Date Given: No Immunizations Up to Date: Yes Travel Risk - International Travel Have you traveled outside of the country in past 3 weeks: No - Coronavirus Screening Are you exhibiting any of the following symptoms?: No Close contact with a COVID-19 positive Pt in past 14-21 Days: No - Vaccine Status Have you recieved a Covid-19 vaccination: Yes 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[employer]: [employer] - Vaccination Dates Date of 2cond Vaccination (if applicable): 2020 - Review of Systems Constitutional: No Symptoms, No Fever, No Chills Eyes: No Symptoms Ears, Nose, & Throat: No Symptoms Respiratory: No Symptoms, No Cough, No Dyspnea Cardiac: No Symptoms, No Chest Pain, No Edema, No Syncope Abdominal/Gastrointestinal: No Symptoms, No Abdominal Pain, No Nausea, No Vomiting, No Diarrhea Genitourinary Symptoms: No Symptoms, No Dysuria Musculoskeletal: No Symptoms, No Back Pain, No Neck Pain Skin: No Symptoms, No Rash Neurological: No Symptoms, No Dizziness, No Focal Weakness, No Sensory Changes Psychological: No Symptoms Endocrine: No Symptoms Hematologic/Lymphatic: No Symptoms Immunological/Allergic: No Symptoms All Other Systems: Reviewed and Negative - Past Medical History Pertinent Past Medical History: Yes Neurological History: No Pertinent History ENT History: No Pertinent History Cardiac History: Hypertension Respiratory History: No Pertinent History Endocrine Medical History: No Pertinent History Musculoskeletal History: Fractures GI Medical History: Other History: No Pertinent History Psycho-Social History: Other Male Reproductive Disorders: No Pertinent History Other Medical History: dizziness, liver inflammation d/t alcohol intake, alcoholism, broken jaw - Past Surgical History Past Surgical History: Yes Neuro Surgical History: No Pertinent History Cardiac: No Pertinent History Respiratory: No Pertinent History Gastrointestinal: No Pertinent History Genitourinary: No Pertinent History Musculoskeletal: Orthopedic Surgery Male Surgical History: No Pertinent History Other Surgical History: tonsiliectomy, surgery on jaw - Social History Smoking Status: Current every day smoker How long have you smoked: 30 years Exposure to second hand smoke: No Drug Use: none Patient Lives Alone: No - Nursing Vital Signs Nursing Vital Signs: Initial Vital Signs Temperature 98.6 F 06/06/22 17:59 Pulse Rate 63 06/06/22 17:59 Respiratory Rate 20 06/06/22 17:59 Blood Pressure 140/70 06/06/22 17:59 O2 Sat by Pulse Oximetry 98 06/06/22 17:59 Pain Scale Pain Intensity 0 - Physical Exam General Appearance: no apparent distress, alert Eye Exam: PERRL/EOMI, eyes nml inspection Ears, Nose, Throat Exam: normal ENT inspection, pharynx normal, moist mucous membranes Neck Exam: normal inspection, non-tender, supple, full range of motion Respiratory Exam: normal breath sounds, lungs clear, No respiratory distress Cardiovascular Exam: regular rate/rhythm, normal heart sounds Gastrointestinal/Abdomen Exam: soft, tenderness, other (G-tube intact. Surrounding soft tissue intact no excoriated skin or infection), No mass Male Genitalia Exam: normal genitalia Back Exam: normal inspection, normal range of motion, No CVA tenderness, No vertebral tenderness Extremity Exam: normal inspection, normal range of motion, pelvis stable Neurologic Exam: alert, oriented x 3, cooperative, normal mood/affect, nml cerebellar function, sensation nml, No motor deficits Skin Exam: normal color, warm, dry SpO2 Interpretation: normal SpO2: 92 O2 Delivery: Room Air - Course Nursing assessment & vital signs reviewed: Yes - CT Exams Abdomen/Pelvis CT Interpretation: Tele-radiologist Report (X-ray reveals new right middle right lower lobe interstitial alveolar opacities. New PEG tube tip in stomach. Agai n moderate diffuse fecal stasis with new moderate rectal impaction. New nonobstructing 3 to 4 mm right renal calculus.) Ordered Tests: Active Orders 24 hr Category Date Time Status IV Insertion STAT Care 06/06/22 18:14 Active ABDOMEN AND PELVIS W/0 CONTRAS [CT] Stat Exams 06/06/22 18:14 Taken CBC W DIFF Stat Lab 06/06/22 18:30 Completed CMP Stat Lab 06/06/22 18:30 Completed CULTURE,URINE Stat Lab 06/06/22 19:03 Ordered LIPASE Stat Lab 06/06/22 18:30 Completed UA W/RFX UR CULTURE Stat Lab 06/06/22 19:03 Completed Medication Summary Generic Name Dose Route Start Last Admin Trade Name Freq PRN Reason Stop Dose Admin Sodium Chloride 1,000 mls @ 100 mls/hr 06/06/22 18:15 06/06/22 18:23 Sodium Chloride 0.9% 1000 Ml IV 07/06/22 18:14 100 mls/hr .Q10H JACKI Administration Discontinued Medications Generic Name Dose Route Start Last Admin Trade Name Freq PRN Reason Stop Dose Admin Lidocaine HCl Confirm 06/06/22 18:53 Lidocaine Hcl 20 Mg/Ml Jelly [employer]ro-Jet Administered 06/06/22 18:54 Dose 200 mg .ROUTE .[employer] ONE Lab/Rad Data: Laboratory Result Diagrams 06/06/22 18:30 06/06/22 18:30 Laboratory Results 06/06/22 06/06/22 06/06/22 Range/Units 19:03 18:30 18:30 WBC 12.0 H (4.0-10.5) x10^3/uL RBC 3.84 L (4.1-5.6) x10^6/uL Hgb 12.8 (12.5-18.0) g/dL Hct 41.2 L (42-50) % MCV 107.3 H (78-100) fL MCH 33.3 H (26-32) pg MCHC 31.1 L (32-36) g/dL RDW 12.4 (11.5-14.0) % Plt Count 187 (150-450) x10^3/uL MPV 11.1 H (7.5-11.0) fL Gran % 91.0 H (36.0-66.0) % Immature Gran % (Auto) 0.4 (0.00-0.4) % Nucleat RBC Rel Count 0.0 (0.00-0.1) % Eos # (Auto) 0.08 (0-0.5) x10^3/uL Immature Gran # (Auto) 0.05 H (0.00-0.03) x10^3u/L Absolute Lymphs (auto) 0.41 L (1.0-4.6) x10^3/uL Absolute Monos (auto) 0.52 (0.0-1.3) x10^3/uL Absolute Nucleated RBC 0.00 (0.00-0.01) x10^3u/L Lymphocytes % 3.4 L (24.0-44.0) % Monocytes % 4.3 (0.0-12.0) % Eosinophils % 0.7 (0.00-5.0) % Basophils % 0.2 (0.0-0.4) % Absolute Granulocytes 10.94 H (1.4-6.9) x10^3/uL Basophils # 0.02 (0-0.4) x10^3/uL Sodium 137 (137-145) mmol/L Potassium 4.5 (3.5-5.1) mmol/L Chloride 100 (98-107) mmol/L Carbon Dioxide 32 H (22-30) mmol/L Anion Gap 8.9 (5-15) MEQ/L BUN 27 H (9-20) mg/dL Creatinine 0.54 L (0.66-1.25) mg/dL Estimated GFR > 60.0 ML/MIN Glucose 119 H (74-106) mg/dL Calcium 9.7 (8.4-10.2) mg/dL Total Bilirubin 0.80 (0.2-1.3) mg/dL AST 32 (17-59) U/L ALT 24 (0-50) U/L Alkaline Phosphatase 120 (38-126) U/L Serum Total Protein 8.5 H (6.3-8.2) g/dL Albumin 4.6 (3.5-5.0) g/dL Lipase 56 (23-300) U/L Urine Color Yellow (Yellow) Urine Appearance Turbid A (Clear) Urine pH 8.5 A (4.6-8.0) Ur Specific Campbell 1.020 (1.005-1.030) Urine Protein Trace A (Negative) Urine Glucose (UA) Negative (Negative) mg/dL Urine Ketones Negative (Negative) Urine Blood Small A (Negative) Urine Nitrite Negative (Negative) Urine Bilirubin Negative (Negative) Urine Urobilinogen 1.0 A (0.2) mg/dL Ur Leukocyte Esterase Trace A (Negative) U Hyaline Cast (Auto) NONE SEEN (0-2) /LPF Urine Microscopic RBC 21-50 A (0-5) /HPF Urine Microscopic WBC 0-2 (0-5) /HPF Ur Epithelial Cells None Seen (None Seen) /HPF Urine Bacteria None Seen (None Seen) /HPF Urine Culture Reflexed NO (NO) Slides for Path Review YES - Progress Progress: improved Progress Note: Patient reassessed. He is well. Abdominal pain resolved after a large bowel movement. CT scan revealed moderate diffuse fecal stasis with new moderate rectal impaction. CAT scan also revealed a right middle lobe right lower lobe alveolar opacity however patient has no clinical signs of pneumonia. No cough no fever no shortness of breath or tachypnea. We will observe no indication for treatment at this time. Patient requesting discharge. Patient is a 61-year-old male with a history of esophageal cancer on chemotherapy presents to our ED for evaluation of abdominal pain and inability to urinate. Alonzo catheter was placed. Urine expressed. However there was some blood obtained during insertion of Alonzo catheter. It was traumatic. This is observed in the urinalysis. Urinalysis shows some hematuria which is traumatic. Physical exam revealed diffuse abdominal pain. CT scan revealed some constipation and fecal impaction. Incidental left lower lobe interstitial patient however patient has no clinical signs of pneumonia. Patient's presen tation was acute. Complexity of complaint is moderate. Patient has a history of GI cancer which contributed to the complexity of patient's presentation. Test ordered include CT scan, CBC CMP, lipase urinalysis. Patient received normal saline IV fluids as well. The results of the testing were used for medical decision making. No outside records reviewed. Patient had a large bowel movement in our ED which resolved patient's pain. Patient agrees to follow-up with his primary care doctor within 48 hours for reevaluation. No social determinants of health to impede patient's follow-up. Level of the M service provided was moderate. Complexity of problem is moderate. . Complexity of data analyzed and reviewed is moderate. Risk of complication and or risk of morbidity/mortality of patient management is low. No critical care time. Patient served as an independent historian however EMS providers also contributed to the HPI. Patient was assisted several times to the commode. Harini randall had several large bowel movements which alleviated patient's symptomology. Time spent during discharge of patient is approximately 10 minutes. Reflex in the culture. Cultures pending Discharge diagnosis is constipation, rectal fecal impaction, urinary retention, hematuria history of esophageal cancer Portions of this note were created with voice recognition technology. There may be grammatical, spelling, punctuation or sound alike errors 06/06/22 21:59 Counseled pt/family regarding: lab results, diagnosis Medical Desision Making - Diagnostic Testing Diagnostic Testing: Diagnostic tests were ordered,analyzed, and reviewed by me and used in my medical decision making for this patient. Radiologic studies (if ordered) were read by me initially then discussed with the radiologist . - Departure Departure Disposition: Home Clinical Impression: Urinary retention, Fecal impaction in rectum, Leukocytosis, Alveolar inters titial opacity, Nephrolithiasis, Esophageal cancer Condition: Stable Critical Care Time: No Referrals: JAKOB MCBRIDE MD [Primary Care Provider] - Follow up/PCP as directed Additional Instructions: Discharge/Care Plan YURIMALVIN WEI was seen on 02/13/23 in the Emergency Room. The patient was counseled regarding Diagnosis,Lab results, Imaging studies, need for follow up and when to return to the Emergency Room. Prescriptions given: Discharge Note I have spoken with the patient and/or caregivers. I have explained the patient's condition, diagnosis and treatment plan based on the information available to me at this time. I have answered the patient's and/or caregiver's questions and addressed any concerns. The patient and/or caregivers have as good understanding of the patient's diagnosis, condition and treatment plan as can be expected at this point. The vital signs have been stable. The patient's condition is stable and appropriate for discharge from the emergency department. The patient will pursue further outpatient evaluation with the primary care physician or other designated or consulting physician as outlined in the discharge instructions. The patient and/or caregivers are agreeable to this plan of care and follow-up instructions have been explained in detail. The patient and/or caregivers have received these instruction. The patient/and or caregivers are aware that any significant change in condition or worsening of symptoms should prompt an immediate return to this or the closest emergency department or call 911.
[2022-06-06 20:11] VITALS: PULSE 62
[2022-06-06 20:53] LABS: Appearance Turbid (Clear); Bacteria None Seen /HPF (None Seen); Bilirubin Negative (Negative); Blood Small (Negative); Epithelial Cells None Seen /HPF (None Seen); Glucose, Urine Negative (Negative); Hyaline Casts NONE SEEN /LPF (0-2); Ketones Negative (Negative); Leukocyte Esterase Trace (Negative); Nitrite Negative (Negative); Ph 8.5 (4.6-8.0); Protein,Urine Dip Trace (Negative); RBC 21-50 /HPF (0-5); WBC 0-2 /HPF (0-5)
[2022-06-06 20:59] LABS: ADD URINE CULTURE? NO (NO)
[2022-06-06 21:05] VITALS: BP 129/68
[2022-06-06 21:32] LABS: Slide Review 1 YES
[2022-06-06 21:58] VITALS: O2SAT 92
--- NOTE | 2022-06-07 08:35 | XRAY ---
Indication: Abdomen pain. Bowel movement and urinary urgency. History esophageal cancer. Multiple contiguous axial images obtained through the abdomen and pelvis without contrast. Comparison: April 03, 2020 Lung bases demonstrates new minimal right middle and right lower lobe interstitial alveolar opacities without effusion. Heart not enlarged. New PEG tube with balloon tip in gastric lumen. Noncontrasted stomach and bowel loops appear nonobstructed. Again moderate diffuse colonic fecal debris with new moderate rectal impaction. New nonobstructing 3-4 mm right renal calculus. Remaining liver, gallbladder, pancreas, spleen, adrenal glands, kidneys, ureters, and bladder are unremarkable for noncontrast exam. Again moderate diffuse scattered aortoiliac calcifications without AAA. Osseous structures intact again with minimal/mild degenerative changes throughout the spine and both hips. Impression: 1. Again moderate diffuse fecal stasis with new rectal impaction. 2. New nonobstructing right renal micro-calculus and PEG tube in situ. 3. New minimal right middle and right lower lobe interstitial alveolar opacities. 4. Chronic findings including arteriosclerotic disease and chronic bony findings.
== END 2022-06-06 22:48 | disposition home or self-care (01) ==
LOC: ED 17:58
DX: K56.41 Fecal impaction (principal); R33.9 Retention of urine, unspecified; D72.829 Elevated white blood cell count, unspecified; R91.8 Other nonspecific abnormal finding of lung field; N20.0 Calculus of kidney; Z85.01 Personal history of malignant neoplasm of esophagus; R10.9 Unspecified abdominal pain; I10 Essential (primary) hypertension; Z79.891 Long term (current) use of opiate analgesic; Z79.899 Other long term (current) drug therapy; Z72.0 Tobacco use
CPT/HCPCS: 36000; 36415; 51702; 74176; 80053; 81001; 83690; 85025; 87086; 99284

== ENCOUNTER 2023-03-14 12:20 | Emergency (ER) | payer MEDICARE, OTHER ==
[2023-03-14 12:49] VITALS: TEMP 97.4
[2023-03-14] MEDS ORDERED: Sodium Chloride 0.9% 1000 ML 1,000 ML ONE (13:19)
[2023-03-14] MEDS ORDERED: Zofran 4 MG/2 ML VIAL ONE (13:19)
[2023-03-14] MEDS: Sodium Chloride 0.9% 1000 ML 1,000 ML IV SCH (13:21)
[2023-03-14] MEDS: Zofran 4 MG/2 ML VIAL IV ONE (13:21)
[2023-03-14 13:23] LABS: Absolute Neutrophil Ct (ANC) 8.32 x10^3/uL (1.4-6.9); BASOPHIL % 0.2 % (0.0-0.4); Basophil (Absolute #) 0.02 x10^3/uL (0-0.4); Eosinophil % 0.8 % (0.00-5.0); Eosinophil (Absolute #) 0.08 x10^3/uL (0-0.5); Hematocrit 49.2 % (42-50); Hemoglobin 16.2 g/dL (12.5-18.0); IMMATURE GRAN # 0.03 x10^3u/L (0.00-0.03); IMMATURE GRAN % 0.3 % (0.00-0.4); Lymphocyte (Absolute #) 0.78 x10^3/uL (1.0-4.6); Lymphocytes % 7.9 % (24.0-44.0); Mean Cell Volume 101.7 fL (78-100); Mean Corpuscular Hemoglobin 33.5 pg (26-32); Mean Corpuscular Hgb Concent. 32.9 g/dL (32-36); Monocyte (Absolute #) 0.66 x10^3/uL (0.0-1.3); Monocytes % 6.7 % (0.0-12.0); Neutrophil % 84.1 % (36.0-66.0); Platelet Count 147 x10^3/uL (150-450); Red Blood Count 4.84 x10^6/uL (4.1-5.6); White Blood Count 9.9 x10^3/uL (4.0-10.5)
[2023-03-14 13:29] LABS: ALBUMIN 4.8 g/dL (3.5-5.0); Calcium 10.5 mg/dL (8.4-10.2); Creatinine 1 0.82 mg/dL (0.66-1.25); EST GLOMERULAR FILTRATION RATE 99.9 ML/MIN; Total Protein 8.9 g/dL (6.3-8.2)
[2023-03-14 13:46] LABS: Potassium 3.5 mmol/L (3.5-5.1)
[2023-03-14 13:47] LABS: ANION GAP 17.5 MEQ/L (5-15)
--- NOTE | 2023-03-14 15:49 | ERPHSYRPT ---
- History of Present Illness Time Seen by Provider: 03/14/23 12:50 Source: patient Exam Limitations: no limitations Patient Subjective Stated Complaint: pt states that he has a tumor in his throat and is on a feeding tube. pt states that he has been vomiting since monday Triage Nursing Assessment: pt ambulated into the er; pt is axo x4; c/o vomiting; c/o N/V; hyperactive bowel sounds in all quads; g-tube present to Q; pt states last BM 03/14/23; skin PDW; no respiratory distress present; O2 was 82% on room air at arrival; pt was put on 3L via nasal cannula; hypertensive Physician History: 62-year-old male with a history of throat cancer x2 years presents to our ED with nausea and vomiting. Patient feeds through her G-tube. Patient states that he has been feeding through the G-tube and vomiting. Patient states he has not been taking his G-tube antipyretic as it typically clogs his tube. Patient denies pain. No chest pain or shortness of breath. No abdominal pain. symptoms are mild to moderate in intensity. No specific worsening or improving factors. Patient voices no other complaints or concerns at this time. Portions of this note were created with voice recognition technology. There may be grammatical, spelling, punctuation or sound alike errors Timing/Duration: today Severity: moderate Modifying Factors: Improves With: nothing Associated Symptoms: denies symptoms Allergies/Adverse Reactions: No Known Drug Allergies Allergy (Verified 03/14/23 12:38) Home Medications: Hydrocodone/Acetaminophen [Hydrocodone-Acetamin 5-325 mg] 1 each PO DAILY 06/06/22 [History] Rosuvastatin Calcium 20 mg PO DAILY 03/14/23 [History] Hx Tetanus, Diphtheria Vaccination/Date Given: No Hx Influenza Vaccination/Date Given: No Hx Pneumococcal Vaccination/Date Given: No Travel Risk - International Travel Have you traveled outside of the country in past 3 weeks: No - Coronavirus Screening Are you exhibiting any of the following symptoms?: No Close contact with a COVID-19 positive Pt in past 14-21 Days: No - Vaccine Status Have you recieved a Covid-19 vaccination: Yes 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: [employer] - Vaccination Dates Date of 2cond Vaccination (if applicable): 2020 - Review of Systems Constitutional: No Symptoms, No Fever, No Chills Eyes: No Symptoms Ears, Nose, & Throat: No Symptoms Respiratory: No Symptoms, No Cough, No Dyspnea Cardiac: No Symptoms, No Chest Pain, No Edema, No Syncope Abdominal/Gastrointestinal: No Symptoms, No Abdominal Pain, No Nausea, No Vomiting, No Diarrhea Genitourinary Symptoms: No Symptoms, No Dysuria Musculoskeletal: No Symptoms, No Back Pain, No Neck Pain Skin: No Symptoms, No Rash Neurological: No Symptoms, No Dizziness, No Focal Weakness, No Sensory Changes Psychological: No Symptoms Endocrine: No Symptoms Hematologic/Lymphatic: No Symptoms Immunological/Allergic: No Symptoms All Other Systems: Reviewed and Negative - Past Medical History Pertinent Past Medical History: Yes Neurological History: No Pertinent History ENT History: No Pertinent History Cardiac History: Hypertension Respiratory History: No Pertinent History Endocrine Medical History: No Pertinent History Musculoskeletal History: Fractures GI Medical History: Other History: No Pertinent History Psycho-Social History: Other Male Reproductive Disorders: No Pertinent History Other Medical History: dizziness, liver inflammation d/t alcohol intake, alcoholism, broken jaw,. esophogeal cancer - Past Surgical History Past Surgical History: Yes Neuro Surgical History: No Pertinent History Cardiac: No Pertinent History Respiratory: No Pertinent History Gastrointestinal: No Pertinent History Genitourinary: No Pertinent History Musculoskeletal: Orthopedic Surgery Male Surgical History: No Pertinent History Other Surgical History: tonsiliectomy, surgery on jaw - Social History Smoking Status: Current every day smoker How long have you smoked: 30 years Exposure to second hand smoke: No Drug Use: none Patient Lives Alone: Yes - Nursing Vital Signs Nursing Vital Signs: Initial Vital Signs Temperature 97.4 F 03/14/23 12:38 Pulse Rate 91 H 03/14/23 12:38 Respiratory Rate 18 03/14/23 12:38 Blood Pressure 168/95 03/14/23 12:38 O2 Sat by Pulse Oximetry 82 L 03/14/23 12:38 Pain Scale Pain Intensity 0 - Physical Exam General Appearance: no apparent distress, alert Eye Exam: PERRL/EOMI, eyes nml inspection Ears, Nose, Throat Exam: normal ENT inspection, TMs normal, pharynx normal, moist mucous membranes Neck Exam: normal inspection, non-tender, supple, full range of motion Respiratory Exam: normal breath sounds, airway intact, rhonchi (Mildly coarse breath sounds), No respiratory distress Cardiovascular Exam: regular rate/rhythm, normal heart sounds, normal peripheral pulses Gastrointestinal/Abdomen Exam: soft, normal bowel sounds, No tenderness, No mass Back Exam: normal inspection, normal range of motion, No CVA tenderness, No vertebral tenderness Extremity Exam: normal inspection, normal range of motion, pelvis stable Neurologic Exam: alert, oriented x 3, cooperative, normal mood/affect, nml cerebellar function, nml station & gait, sensation nml, No motor deficits Skin Exam: normal color, warm, dry, No rash Lymphatic Exam: No adenopathy SpO2 Interpretation: normal SpO2: 93 O2 Delivery: Room Air - Course Nursing assessment & vital signs reviewed: Yes - Radiology Exams Chest X-ray Interpretation: Teleradiologist Report (No acute findings) Ordered Tests: Active Orders 24 hr Category Date Time Status IV Insertion STAT Care 03/14/23 13:17 Active CHEST 1 VIEW (PORTABLE) Stat Exams 03/14/23 15:49 Completed CBC W DIFF Stat Lab 03/14/23 12:45 Completed CMP Stat Lab 03/14/23 12:45 Completed TROPONIN Q4H Lab 03/14/23 12:45 Completed TROPONIN Q4H Lab 03/14/23 17:25 Completed TROPONIN Q4H Lab 03/14/23 21:30 Ordered Medication Summary Generic Name Dose Route Start Last Admin Trade Name Freq PRN Reason Stop Dose Admin Sodium Chloride 1,000 mls @ 100 mls/hr 03/14/23 13:30 03/14/23 16:31 Sodium Chloride 0.9% 1000 Ml IV 04/13/23 13:29 Infused .Q10H JACKI Infusion Discontinued Medications Generic Name Dose Route Start Last Admin Trade Name Freq PRN Reason Stop Dose Admin Ondansetron HCl 4 mg 03/14/23 13:17 03/14/23 13:21 Ondansetron Hcl 4 Mg/2 Ml Vial IV 03/14/23 13:18 4 mg STAT ONE Administration Ondansetron HCl Confirm 03/14/23 13:19 Ondansetron Hcl 4 Mg/2 Ml Vial Administered 03/14/23 13:20 Dose 4 mg .ROUTE .[facility] ONE Lab/Rad Data: Laboratory Result Diagrams 03/14/23 12:45 03/14/23 12:45 Laboratory Results 03/14/23 03/14/23 03/14/23 Range/Units 17:25 12:45 12:45 WBC (4.0-10.5) x10^3/uL RBC (4.1-5.6) x10^6/uL Hgb (12.5-18.0) g/dL Hct (42-50) % MCV (78-100) fL MCH (26-32) pg MCHC (32-36) g/dL RDW (11.5-14.0) % Plt Count (150-450) x10^3/uL MPV (7.5-11.0) fL Gran % (36.0-66.0) % Immature Gran % (Auto) (0.00-0.4) % Nucleat RBC Rel Count (0.00-0.1) % Eos # (Auto) (0-0.5) x10^3/uL Immature Gran # (Auto) (0.00-0.03) x10^3u/L Absolute Lymphs (auto) (1.0-4.6) x10^3/uL Absolute Monos (auto) (0.0-1.3) x10^3/uL Absolute Nucleated RBC (0.00-0.01) x10^3u/L Lymphocytes % (24.0-44.0) % Monocytes % (0.0-12.0) % Eosinophils % (0.00-5.0) % Basophils % (0.0-0.4) % Absolute Granulocytes (1.4-6.9) x10^3/uL Basophils # (0-0.4) x10^3/uL Sodium 142 (137-145) mmol/L Potassium 3.5 (3.5-5.1) mmol/L Chloride 101 (98-107) mmol/L Carbon Dioxide 27 (22-30) mmol/L Anion Gap 17.5 H (5-15) MEQ/L BUN 43 H (9-20) mg/dL Creatinine 0.82 (0.66-1.25) mg/dL Estimated GFR 99.9 ML/MIN Glucose 130 H (74-106) mg/dL Calcium 10.5 H (8.4-10.2) mg/dL Total Bilirubin 2.00 H (0.2-1.3) mg/dL AST 36 (17-59) U/L ALT 32 (0-50) U/L Alkaline Phosphatase 110 (38-126) U/L Troponin I 0.012 0.015 (0.000-0.034) ng/mL Serum Total Protein 8.9 H (6.3-8.2) g/dL Albumin 4.8 (3.5-5.0) g/dL 03/14/23 Range/Units 12:45 WBC 9.9 (4.0-10.5) x10^3/uL RBC 4.84 (4.1-5.6) x10^6/uL Hgb 16.2 (12.5-18.0) g/dL Hct 49.2 (42-50) % MCV 101.7 H (78-100) fL MCH 33.5 H (26-32) pg MCHC 32.9 (32-36) g/dL RDW 13.0 (11.5-14.0) % Plt Count 147 L (150-450) x10^3/uL MPV 12.0 H (7.5-11.0) fL Gran % 84.1 H (36.0-66.0) % Immature Gran % (Auto) 0.3 (0.00-0.4) % Nucleat RBC Rel Count 0.0 (0.00-0.1) % Eos # (Auto) 0.08 (0-0.5) x10^3/uL Immature Gran # (Auto) 0.03 (0.00-0.03) x10^3u/L Absolute Lymphs (auto) 0.78 L (1.0-4.6) x10^3/uL Absolute Monos (auto) 0.66 (0.0-1.3) x10^3/uL Absolute Nucleated RBC 0.00 (0.00-0.01) x10^3u/L Lymphocytes % 7.9 L (24.0-44.0) % Monocytes % 6.7 (0.0-12.0) % Eosinophils % 0.8 (0.00-5.0) % Basophils % 0.2 (0.0-0.4) % Absolute Granulocytes 8.32 H (1.4-6.9) x10^3/uL Basophils # 0.02 (0-0.4) x10^3/uL Sodium (137-145) mmol/L Potassium (3.5-5.1) mmol/L Chloride (98-107) mmol/L Carbon Dioxide (22-30) mmol/L Anion Gap (5-15) MEQ/L BUN (9-20) mg/dL Creatinine (0.66-1.25) mg/dL Estimated GFR ML/MIN Glucose (74-106) mg/dL Calcium (8.4-10.2) mg/dL Total Bilirubin (0.2-1.3) mg/dL AST (17-59) U/L ALT (0-50) U/L Alkaline Phosphatase (38-126) U/L Troponin I (0.000-0.034) ng/mL Serum Total Protein (6.3-8.2) g/dL Albumin (3.5-5.0) g/dL - Progress Progress: improved Progress Note: 62-year-old male history of throat cancer presents to our ED for nausea and vomiting. No associated chest pain or shortness of breath. Mildly coarse breath sounds with physical exam. Chest x-ray nonremarkable. Vital stable. Patient received Zofran and IV fluids. Patient feels well. Patient now tolerating feeds. A prescription for Zofran forwarded to patient's pharmacy. Troponin negative x2. Will discharge home. Patient voices no other complaints or concerns at this time. IV fluids administered Portions of this note were created with voice recognition technology. There may be grammatical, spelling, punctuation or sound alike errors Complexity of problems addressed is moderate acute complicated No critical care time Complex of data reviewed and analyzed is moderate. Test ordered test reviewed. Results analyzed and correlated clinically. Risk of complication at risk morbidity/mortality of patient management is moderate. A prescription for Zofran ODT forwarded to patient's pharmacy. Vital stable. Patient asymptomatic. Patient tolerating feeds. Plan of care established for shared decision making. No social determinants of health present impede follow-up. Portions of this note were created with voice recognition technology. There may be grammatical, spelling, punctuation or sound alike errors 03/14/23 18:10 03/14/23 18:13 Counseled pt/family regarding: lab results, diagnosis, need for follow-up, rad results - Departure Departure Disposition: Home Clinical Impression: Vomiting Condition: Stable Critical Care Time: No Referrals: JAKOB MCBRIDE MD [Primary Care Provider] - Follow up/PCP as directed Instructions: Nausea and Vomiting, Adult ED Additional Instructions: Discharge/Care Plan MALVIN WELCH was seen on 03/14/23 in the Emergency Room. The patient was counseled regarding Diagnosis,Lab results, Imaging studies, need for follow up and when to return to the Emergency Room. Prescriptions given: Discharge Note I have spoken with the patient and/or caregivers. I have explained the patient's condition, diagnosis and treatment plan based on the information available to me at this time. I have answered the patient's and/or caregiver's questions and addressed any concerns. The patient and/or caregivers have as good understanding of the patient's diagnosis, condition and treatment plan as can be expected at t his point. The vital signs have been stable. The patient's condition is stable and appropriate for discharge from the emergency department. The patient will pursue further outpatient evaluation with the primary care physician or other designated or consulting physician as outlined in the discharge instructions. The patient and/or caregivers are agreeable to this plan of care and follow-up instructions have been explained in detail. The patient and/or caregivers have received these instruction. The patient/and or caregivers are aware that any significant change in condition or worsening of symptoms should prompt an immediate return to this or the closest emergency department or call 911. Prescriptions: Ondansetron ODT 4 MG [Zofran Odt 4 mg] 4 mg PO Q6H PRN PRN #10 tablet PRN Reason: Vomiting
[2023-03-14 16:15] VITALS: RESP 14
--- NOTE | 2023-03-14 16:36 | XRAY ---
Indication: Cough. History esophageal cancer. Comparison: December 02, 2018 Portable chest again hyperinflated without focal infiltrate, consolidation, or large effusion. Heart not enlarged with new left Port-A-Cath. Bony thorax intact. No new/acute findings.
[2023-03-14 18:16] VITALS: BP 142/84; PULSE 78; O2SAT 95
== END 2023-03-14 18:15 | disposition home or self-care (01) ==
LOC: ED 12:20
DX: R11.2 Nausea with vomiting, unspecified (principal); Z93.1 Gastrostomy status; I10 Essential (primary) hypertension; Z79.891 Long term (current) use of opiate analgesic; Z79.899 Other long term (current) drug therapy; Z72.0 Tobacco use
CPT/HCPCS: 36000; 36415; 71045; 80053; 84484; 85025; 96360; 96361; 96374; 99284; J2405

== ENCOUNTER 2023-11-25 04:29 | Emergency (ER) | payer MEDICARE ==
[2023-11-25] MEDS ORDERED: BABY ASPIRIN 81 MG CHEW ONE (04:46)
[2023-11-25 04:52] VITALS: TEMP 99.7
[2023-11-25] MEDS: BABY ASPIRIN 81 MG CHEW PO ONE (04:52)
[2023-11-25 04:53] LABS: Absolute Neutrophil Ct (ANC) 15.82 x10^3/uL (1.78-5.38); BASOPHIL % 0.1 % (0.2-1.2); Basophil (Absolute #) 0.02 x10^3/uL (0.01-0.08); Eosinophil (Absolute #) 0 x10^3/uL (0.04-0.54); Hematocrit 54.8 % (40.1-51.0); Hemoglobin 18.4 g/dL (13.7-17.5); IMMATURE GRAN # 0.07 x10^3u/L (0.001-0.031); IMMATURE GRAN % 0.4 % (0.001-0.429); Lymphocyte (Absolute #) 1.08 x10^3/uL (1.32-3.57); Lymphocytes % 5.9 % (21.8-53.1); Mean Cell Volume 99.6 fL (79.0-92.2); Mean Corpuscular Hemoglobin 33.5 pg (25.7-32.2); Mean Corpuscular Hgb Concent. 33.6 g/dL (32.3-36.5); Monocyte (Absolute #) 1.32 x10^3/uL (0.30-0.82); Monocytes % 7.2 % (5.3-12.2); Neutrophil % 86.4 % (34.0-67.9); Platelet Count 171 x10^3/uL (163-337); Red Cell Distribution Width 12.6 % (11.6-14.4); White Blood Count 18.3 x10^3/uL (4.23-9.07)
[2023-11-25] MEDS ORDERED: Heparin 25,000 units/D5W: USE ORDER SET PROTO 25,000 UNITS/250 ML BAG IV ONE (04:54)
[2023-11-25] MEDS ORDERED: Sodium Chloride 0.9% 1000 ML 1,000 ML ONE (04:54)
[2023-11-25] MEDS ORDERED: LOPRESSOR INJECTION IV ONE (04:54)
[2023-11-25] MEDS ORDERED: HEPARIN 5000 UNITS/0.5 ML (HIGH RISK MED) ONE (04:54)
[2023-11-25] MEDS: LOPRESSOR INJECTION IV ONE (04:55)
[2023-11-25] MEDS: HEPARIN 5000 UNITS/0.5 ML (HIGH RISK MED) IV STA (04:55)
[2023-11-25] MEDS: Sodium Chloride 0.9% 1000 ML 1,000 ML IV STA (04:56)
[2023-11-25] MEDS: Heparin 25,000 units/D5W: USE ORDER SET PROTO 25,000 UNITS/250 ML BAG IV SCH (04:56)
--- NOTE | 2023-11-25 04:58 | ERPHSYRPT ---
- History of Present Illness Time Seen by Provider: 11/25/23 04:45 Historian: patient Exam Limitations: no limitations Patient Subjective Stated Complaint: pt had a scope yesterday to stretch his esophagus and has been vomiting since. Triage Nursing Assessment: pt alert and oriented, answers questions approp. pt arrive per ambulance and [facility] assist of [facility]. skin cool and dry. heart rate 114 sinus tach on monitor. pt abd soft an nontender to light palpation. bowel sounds oresent. lung sounds diminished bilat. Physician History: 63yo m presents via EMS for cp, sob, n/v for the past 8h. 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 Pt states the nausea and sob are what made him finally decide to call 911. Pt has hx of afib, is not on anticoagulation. Pt has seen Dr Perez for cardiology in the past. Timing/Duration: today Activities at Onset: other (post op from EGD) Quality: pressure, sharpness Location: substernal, central Chest Pain Radiation: no radiation Severity of Pain-Max: moderate Severity of Pain-Current: moderate Modifying Factors: Improves With: nothing Associated Symptoms: nausea, vomiting, shortness of breath, chills Nitro Today/Relief: no nitro taken today Aspirin Treatment Today: 325 mg x 1, provided by ED Allergies/Adverse Reactions: No Known Drug Allergies Allergy (Verified 07/27/23 13:28) Home Medications: Hydrocodone/Acetaminophen [Hydrocodone-Acetamin 5-325 mg] 1 each PO DAILY 06/06/22 [History] Rosuvastatin Calcium 20 mg PO DAILY 03/14/23 [History] Hx Tetanus, Diphtheria Vaccination/Date Given: No Hx Influenza Vaccination/Date Given: No Hx Pneumococcal Vaccination/Date Given: No Immunizations Up to Date: Yes Travel Risk - International Travel Have you traveled outside of the country in past 3 weeks: No - Emerging Infectious Disease Are you exhibiting symptoms associated with any current EIDs: No - Review of Systems Constitutional: Chills - Past Medical History Pertinent Past Medical History: Yes Neurological History: No Pertinent History ENT History: No Pertinent History Cardiac History: Arrhythmia, Hypertension Respiratory History: No Pertinent History Endocrine Medical History: No Pertinent History Musculoskeletal History: Fractures GI Medical History: Other History: No Pertinent History Psycho-Social History: Other Male Reproductive Disorders: No Pertinent History Other Medical History: dizziness, liver inflammation d/t alcohol intake, alcoholism, broken jaw,. esophogeal cancer, a fib - Past Surgical History Past Surgical History: Yes Neuro Surgical History: No Pertinent History Cardiac: No Pertinent History Respiratory: No Pertinent History Gastrointestinal: No Pertinent History Genitourinary: No Pertinent History Musculoskeletal: Orthopedic Surgery Male Surgical History: No Pertinent History Other Surgical History: tonsiliectomy, surgery on jaw, scope yesterday - Social History Smoking Status: Current every day smoker How long have you smoked: 30+ years Exposure to second hand smoke: No Drug Use: none Patient Lives Alone: Yes - Social Determinants of Health Will the patient participate in the screening: Declined to provide - Nursing Vital Signs Nursing Vital Signs: Initial Vital Signs Temperature 99.7 F 11/25/23 04:36 Pulse Rate 117 H 11/25/23 04:36 Respiratory Rate 20 11/25/23 04:36 Blood Pressure 125/83 11/25/23 04:36 O2 Sat by Pulse Oximetry 90 L 11/25/23 04:36 Pain Scale Pain Intensity 1 - Physical Exam General Appearance: mild distress, thin Respiratory Exam: diminished breath sounds, rhonchi, wheezing, No stridor Cardiovascular Exam: tachycardia, No murmur, No edema, No pulse deficit Gastrointestinal/Abdomen Exam: soft, other (G tube in place) Neurologic Exam: alert, oriented x 3, cooperative Skin Exam: diaphoresis SpO2 Interpretation: borderline oxygenation SpO2: 90 O2 Delivery: Nasal Cannula (6L) - Course EKG Interpreted by Me: RATE, Sinus Tach, Ischemic ST-T changes (ST depressions in leads II, V4, V5, V6) Ordered Tests: Active Orders 24 hr Category Date Time Status CHEST 1 VIEW (PORTABLE) Stat Exams 11/25/23 04:41 Taken CBC Q48H Lab 11/26/23 06:00 Ordered CBC Q48H Lab 11/28/23 06:00 Ordered CBC Q48H Lab 11/30/23 06:00 Ordered CBC Q48H Lab 12/02/23 06:00 Ordered CBC Q48H Lab 12/04/23 06:00 Ordered CBC Q48H Lab 12/06/23 06:00 Ordered CBC Q48H Lab 12/08/23 06:00 Ordered CBC W DIFF Stat Lab 11/25/23 04:50 Completed CMP Stat Lab 11/25/23 04:50 Completed PROTIME WITH INR Stat Lab 11/25/23 04:50 Completed PTT Q4H Lab 11/25/23 09:00 Ordered PTT Q4H Lab 11/25/23 13:00 Ordered PTT Q4H Lab 11/25/23 17:00 Ordered PTT Q4H Lab 11/25/23 21:00 Ordered PTT Q4H Lab 11/26/23 01:00 Ordered PTT Q4H Lab 11/26/23 05:00 Ordered PTT Q4H Lab 11/26/23 09:00 Ordered PTT Q4H Lab 11/26/23 13:00 Ordered PTT Q4H Lab 11/26/23 17:00 Ordered PTT Q4H Lab 11/26/23 21:00 Ordered PTT Q4H Lab 11/27/23 01:00 Ordered PTT Stat Lab 11/25/23 04:50 Completed TROPONIN Q4H Lab 11/25/23 04:50 Completed TROPONIN Q4H Lab 11/25/23 08:45 Ordered TROPONIN Q4H Lab 11/25/23 12:45 Ordered Medication Summary Generic Name Dose Route Start Last Admin Trade Name Freq PRN Reason Stop Dose Admin Sodium Chloride 1,000 mls @ 999 mls/hr 11/25/23 04:39 11/25/23 04:56 Sodium Chloride 0.9% 1000 Ml IV 11/25/23 05:39 999 mls/hr .Q1H1M STA Administration Heparin Sodium/Dextrose 25,000 units in 250 mls @ 6.468 mls/hr 11/25/23 04:53 11/25/23 04:56 Heparin 25,000 Units/D5w: Use Order Set Getachew IV 12/25/23 04:52 12 units/kg/hr .Q24H JACKI 6.468 mls/hr Administration Protocol 12 UNITS/KG/HR Discontinued Medications Generic Name Dose Route Start Last Admin Trade Name Freq PRN Reason Stop Dose Admin Aspirin Confirm 11/25/23 04:46 Aspirin 81 Mg Tab.Chew Administered 11/25/23 04:47 Dose 324 mg .ROUTE .STK-[facility] ONE Aspirin 324 mg 11/25/23 04:46 11/25/23 04:52 Aspirin 81 Mg Tab.Chew PO 11/25/23 04:47 324 mg STAT ONE Administration Heparin Sodium (Beef Lung) 3,360 unit 11/25/23 04:48 11/25/23 04:55 Heparin 5000 Units/0.5 Ml 5,000 Unit/0.5 Ml Syr IV 11/25/23 04:49 3,360 unit STAT STA Administration Heparin Sodium (Beef Lung) Confirm 11/25/23 04:54 Heparin 5000 Units/0.5 Ml 5,000 Unit/0.5 Ml Syr Administered 11/25/23 0 4:55 Dose 5,000 unit .ROUTE .STK-MED ONE Heparin Sodium/Dextrose 25,000 units in 250 mls @ 0 mls/hr 11/25/23 05:00 Heparin 25,000 Units/D5w: Use Order Set Getachew IV 12/25/23 04:59 JACKI Protocol 12 UNITS/KG/HR Sodium Chloride Confirm 11/25/23 04:54 Sodium Chloride 0.9% 1000 Ml Administered 11/25/23 04:55 Dose 1,000 mls @ ud .ROUTE .STK-[facility] ONE Metoprolol Tartrate 5 mg 11/25/23 04:46 11/25/23 04:55 Metoprolol Tartrate 5 Mg/5 Ml Vial IV 11/25/23 04:47 5 mg STAT ONE Administration Metoprolol Tartrate Confirm 11/25/23 04:54 Metoprolol Tartrate 5 Mg/5 Ml Vial Administered 11/25/23 04:55 Dose 5 mg IV .STK-MED ONE Lab/Rad Data: Laboratory Result Diagrams 11/25/23 04:50 11/25/23 04:50 Laboratory Results 11/25/23 11/25/23 11/25/23 Range/Units 04:50 04:50 04:50 WBC (4.23-9.07) x10^3/uL RBC (4.63-6.08) x10^6/uL Hgb (13.7-17.5) g/dL Hct (40.1-51.0) % MCV (79.0-92.2) fL MCH (25.7-32.2) pg MCHC (32.3-36.5) g/dL RDW (11.6-14.4) % Plt Count (163-337) x10^3/uL MPV (9.4-12.4) fL Gran % (34.0-67.9) % Immature Gran % (Auto) (0.001-0.429) % Nucleat RBC Rel Count (0.00-0.2) % Eos # (Auto) (0.04-0.54) x10^3/uL Immature Gran # (Auto) (0.001-0.031) x10^3u/L Absolute Lymphs (auto) (1.32-3.57) x10^3/uL Absolute Monos (auto) (0.30-0.82) x10^3/uL Absolute Nucleated RBC (0.00-0.012) x10^3u/L Lymphocytes % (21.8-53.1) % Monocytes % (5.3-12.2) % Eosinophils % (0.8-7.0) % Basophils % (0.2-1.2) % Absolute Granulocytes (1.78-5.38) x10^3/uL Basophils # (0.01-0.08) x10^3/uL PT 12.7 H (9.4-12.5) SECONDS INR 1.18 (0.8-3.0) APTT 27.0 (25.1-36.5) SECONDS Sodium 146 H (135-145) mmol/L Potassium 3.3 L (3.5-5.1) mmol/L Chloride 93 L (98-107) mmol/L Carbon Dioxide 31 H (22-30) mmol/L Anion Gap 25.3 H (5-15) MEQ/L BUN 28 H (9-20) mg/dL Creatinine 0.94 (0.66-1.25) mg/dL Estimated GFR 91.7 ML/MIN Glucose 171 H (74-106) mg/dL Calcium 10.7 H (8.4-10.2) mg/dL Total Bilirubin 2.90 H (0.2-1.3) mg/dL AST 49 (17-59) U/L ALT 55 H (0-50) U/L Alkaline Phosphatase 130 H (38-126) U/L Troponin I 0.016 (0.000-0.033) ng/mL Serum Total Protein 8.8 H (6.3-8.2) g/dL Albumin 5.4 H (3.5-5.0) g/dL 08/03/24 Range/Units 04:50 WBC 18.3 H (4.23-9.07) x10^3/uL RBC 5.50 (4.63-6.08) x10^6/uL Hgb 18.4 H (13.7-17.5) g/dL Hct 54.8 H (40.1-51.0) % MCV 99.6 H (79.0-92.2) fL MCH 33.5 H (25.7-32.2) pg MCHC 33.6 (32.3-36.5) g/dL RDW 12.6 (11.6-14.4) % Plt Count 171 (163-337) x10^3/uL MPV 12.0 (9.4-12.4) fL Gran % 86.4 H (34.0-67.9) % Immature Gran % (Auto) 0.4 (0.001-0.429) % Nucleat RBC Rel Count 0.0 (0.00-0.2) % Eos # (Auto) 0 L (0.04-0.54) x10^3/uL Immature Gran # (Auto) 0.07 H (0.001-0.031) x10^3u/L Absolute Lymphs (auto) 1.08 L (1.32-3.57) x10^3/uL Absolute Monos (auto) 1.32 H (0.30-0.82) x10^3/uL Absolute Nucleated RBC 0.00 (0.00-0.012) x10^3u/L Lymphocytes % 5.9 L (21.8-53.1) % Monocytes % 7.2 (5.3-12.2) % Eosinophils % 0.0 L (0.8-7.0) % Basophils % 0.1 L (0.2-1.2) % Absolute Granulocytes 15.82 H (1.78-5.38) x10^3/uL Basophils # 0.02 (0.01-0.08) x10^3/uL PT (9.4-12.5) SECONDS INR (0.8-3.0) APTT (25.1-36.5) SECONDS Sodium (135-145) mmol/L Potassium (3.5-5.1) mmol/L Chloride (98-107) mmol/L Carbon Dioxide (22-30) mmol/L Anion Gap (5-15) MEQ/L BUN (9-20) mg/dL Creatinine (0.66-1.25) mg/dL Estimated GFR ML/MIN Glucose (74-106) mg/dL Calcium (8.4-10.2) mg/dL Total Bilirubin (0.2-1.3) mg/dL AST (17-59) U/L ALT (0-50) U/L Alkaline Phosphatase (38-126) U/L Troponin I (0.000-0.033) ng/mL Serum Total Protein (6.3-8.2) g/dL Albumin (3.5-5.0) g/dL - Progress Progress: unchanged Air Movement: fair Progress Note: 11/25/23 05:01 I discussed pt's case and EKG w/ Dr Jang - cardiology at [facility] who recommended giving aspirin, heparin and lopressor and sending pt to the ED at [facility] for further evaluation I discussed pt's case w/ ER physician Dr Duran and made him aware of my discussion w/ Dr Jang and is aware that pt will be coming to their ED for further evaluation 11/25/23 05:28 pt left this ED via EMS for ground transport to [facility] ED Blood Culture(s) Obtained: No Antibiotics given: No Will see patient in: ED Counseled pt/family regarding: lab results, diagnosis, need for follow-up, rad results Medical Desision Making - Risk of complications The pt has a high risk of morbidity or mortality based on: Decision regarding hospitilization or escalation of hosp level of care - Departure Departure Disposition: Transfer Clinical Impression: NSTEMI (non-ST elevated myocardial infarction), Shortness of breath Condition: Critical Critical Care Time: Yes Critical Care Time(excluding separately billable procedures): Critical 30-74 mi ns Referrals: JAKOB MCBRIDE MD [Primary Care Provider] - Follow up/PCP as directed
[2023-11-25] MEDS ORDERED: Heparin 25,000 units/D5W: USE ORDER SET PROTO 25,000 UNITS/250 ML BAG IV SCH (05:00)
[2023-11-25 05:03] LABS: ALBUMIN 5.4 g/dL (3.5-5.0); ANION GAP 25.3 MEQ/L (5-15); BILIRUBIN,TOTAL 2.9 mg/dL (0.2-1.3); Calcium 10.7 mg/dL (8.4-10.2); Creatinine 1 0.94 mg/dL (0.66-1.25); EST GLOMERULAR FILTRATION RATE 91.7 ML/MIN; Potassium 3.3 mmol/L (3.5-5.1); Total Protein 8.8 g/dL (6.3-8.2)
[2023-11-25 05:04] LABS: INR 1.18 (0.8-3.0); PROTIME 12.7 SECONDS (9.4-12.5)
[2023-11-25 05:26] VITALS: BP 136/78; PULSE 80; RESP 15
[2023-11-25 05:30] VITALS: O2SAT 90
--- NOTE | 2023-11-25 07:51 | XRAY ---
Indication: Short of breath. Comparison: March 14, 2023 Portable chest again hyperinflated. New mild left infrahilar interstitial alveolar opacities. Remaining heart and lungs unremarkable again with left Port-A-Cath. Bony thorax intact. Comment: Left lung finding not reported by the interpreting ER clinician. Telephone report given to Dr. Boland at 0750 hrs. on November 25, 2023.
== END 2023-11-25 05:25 | disposition short-term general hospital (02) ==
LOC: ED 04:29
DX: I21.4 Non-ST elevation (NSTEMI) myocardial infarction (principal); R06.02 Shortness of breath; R11.2 Nausea with vomiting, unspecified; R07.9 Chest pain, unspecified; I10 Essential (primary) hypertension; Z79.899 Other long term (current) drug therapy; Z72.0 Tobacco use
CPT/HCPCS: 36000; 36415; 71045; 80053; 84484; 85025; 85610; 85730; 93005; 96374; 96375; 99285; 99291; J1644; A9270-GY

== ENCOUNTER 2024-04-20 20:08 | Observation (INO) | payer MEDICARE ==
--- NOTE | 2024-04-20 20:19 | ERPHSYRPT ---
- History of Present Illness Time Seen by Provider: 04/20/24 20:18 Historian: patient, family Exam Limitations: no limitations Physician History: This is a cachectic appearing 63-year-old white male patient of Dr. Mcbride who has known history of esophageal cancer and had esophageal stent placed several months ago. Patient reports that since that time he is not been feeling well and symptoms are worsening. He called his family today who brought him into the emergency department. They provided additional, independent history as the patient was not feeling well enough to answer fully the questions. Patient's primary complaints today include severe headache, chest pain, back pain generalized muscle aches that are described as throbbing pain. He has been coughing up yellowish sputum as well. Patient has a history of arrhythmia, hypertension. Timing/Duration: worse, other (Chronic symptoms over the last several months) Quality: aching, throbbing Severity of Pain-Max: moderate Severity of Pain-Current: moderate Modifying Factors: Improves With: coughing (Productive cough of yellow sputum productive cough of yellowish sputum) Associated Symptoms: cough, weakness, headache, other (Myalgias and arthralgias) , No nausea, No vomiting, No abdominal pain, No shortness of breath Nitro Today/Relief: no nitro taken today Aspirin Treatment Today: no aspirin today Allergies/Adverse Reactions: No Known Drug Allergies Allergy (Verified 07/27/23 13:28) Home Medications: Hydrocodone/Acetaminophen [Hydrocodone-Acetamin 5-325 mg] 1 each PO DAILY 06/06/22 [History] Rosuvastatin Calcium 20 mg PO DAILY 03/14/23 [History] Hx Tetanus, Diphtheria Vaccination/Date Given: No Hx Influenza Vaccination/Date Given: No Hx Pneumococcal Vaccination/Date Given: No Travel Risk - International Travel Have you traveled outside of the country in past 3 weeks: No - Emerging Infectious Disease Are you exhibiting symptoms associated with any current EIDs: Yes Symptoms: Cough: New Onset, Headaches/Body Aches/ - Review of Systems Constitutional: Weakness Eyes: No Symptoms Ears, Nose, & Throat: No Symptoms Respiratory: Cough Abdominal/Gastrointestinal: Appetite Changes Musculoskeletal: Arthralgias, Myalgias Skin: No Symptoms Neurological: Headache Psychological: No Symptoms Endocrine: No Symptoms Hematologic/Lymphatic: No Symptoms Immunological/Allergic: No Symptoms All Other Systems: Reviewed and Negative - Past Medical History Pertinent Past Medical History: Yes (REVIEW INITIAL EVAL) Neurological History: No Pertinent History ENT History: Other Cardiac History: Arrhythmia, Hypertension Respiratory History: Pneumonia Endocrine Medical History: No Pertinent History Musculoskeletal History: Fractures GI Medical History: Other History: No Pertinent History Psycho-Social History: Other Male Reproductive Disorders: No Pertinent History Other Medical History: PATIENT HAS HX OF ESOPHAGEAL CANCER. HE HAD ESOPHAGEAL STINT PLACED 2023. - Past Surgical History Past Surgical History: Yes Neuro Surgical History: No Pertinent History Cardiac: No Pertinent History Respiratory: No Pertinent History Gastrointestinal: No Pertinent History Genitourinary: No Pertinent History Musculoskeletal: Orthopedic Surgery Male Surgical History: No Pertinent History Other Surgical History: PEG TUBE PLACED APPROXIMATELY 4 YEARS AGO. - Social History Smoking Status: Current every day smoker How long have you smoked: 30+ years Exposure to second hand smoke: No Drug Use: none Patient Lives Alone: Yes - Social Determinants of Health Will the patient participate in the screening: Declined to provide - Nursing Vital Signs Nursing Vital Signs: Initial Vital Signs Pulse Rate 89 04/20/24 20:11 Respiratory Rate 18 04/20/24 20:11 Blood Pressure 143/76 04/20/24 20:11 O2 Sat by Pulse Oximetry 97 04/20/24 20:11 Pain Scale Pain Intensity 0 - Physical Exam General Appearance: mild distress, alert, anxiety, cachetic Eye Exam: PERRL/EOMI, eyes nml inspection Ears, Nose, Throat Exam: dry mucous membranes Neck Exam: normal inspection, non-tender, supple, full range of motion Respiratory Exam: normal breath sounds, lungs clear, airway intact, No chest tenderness, No respiratory distress Cardiovascular Exam: regular rate/rhythm, normal heart sounds, normal peripheral pulses, other (Left chest wall subcutaneous Port-A-Cath present) Gastrointestinal/Abdomen Exam: soft, normal bowel sounds, other (PEG tube in pl lc), No tenderness Rectal Exam: not done Back Exam: normal inspection, normal range of motion, No CVA tenderness, No vertebral tenderness Extremity Exam: normal inspection, normal range of motion, pelvis stable Neurologic Exam: alert, oriented x 3, cooperative, 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 Short SD interval. No acute ischemia. QTc 444) Ordered Tests: Active Orders 24 hr Category Date Time Status EKG-ER Only STAT Care 04/20/24 20:34 Active IV Insertion STAT Care 04/20/24 20:34 Active CHEST 1 VIEW (PORTABLE) Stat Exams 04/20/24 20:34 Taken HEAD WITHOUT CONTRAST [CT] Stat Exams 04/20/24 21:03 Completed CBC W DIFF Stat Lab 04/20/24 20:45 Completed CMP Stat Lab 04/20/24 20:45 Completed MONO SCREEN Stat Lab 04/20/24 20:45 Completed TROPONIN Q4H Lab 04/20/24 20:45 Completed TROPONIN Q4H Lab 04/21/24 00:45 Ordered TROPONIN Q4H Lab 04/21/24 04:45 Ordered Respiratory Therapy Assessment DAILY RT 04/20/24 20:20 Active Medication Summary Discontinued Medications Generic Name Dose Route Start Last Admin Trade Name Freq PRN Reason Stop Dose Admin Albuterol/Ipratropium 3 ml 04/20/24 20:19 04/20/24 20:21 Ipratropium/Albuterol Sulfate 3 Ml Ampul.Neb IH 04/20/24 20:20 3 ml STAT ONE Administration Albuterol/Ipratropium Confirm 04/20/24 20:21 Ipratropium/Albuterol Sulfate 3 Ml Ampul.Neb Administered 04/20/24 20:22 Dose 3 ml IH .STK-MED ONE Hydromorphone HCl 1 mg 04/20/24 20:34 04/20/24 20:59 Hydromorphone 1 Mg/1ml Inj IV 04/20/24 20:35 1 mg STAT ONE Administration Hydromorphone HCl Confirm 04/20/24 20:38 Hydromorphone 1 Mg/1ml Inj Administered 04/20/24 20:39 Dose 1 mg .ROUTE .STK-MED ONE Sodium Chloride 1,000 mls @ 999 mls/hr 04/20/24 20:34 04/20/24 20:58 Sodium Chloride 0.9% 1000 Ml IV 04/20/24 21:34 999 mls/hr .Q1H1M STA Administration Sodium Chloride Confirm 04/20/24 20:38 Sodium Chloride 0.9% 1000 Ml Administered 04/20/24 20:39 Dose 1,000 mls @ ud .ROUTE .STK-MED ONE Ceftriaxone Sodium 1 gm in 100 mls @ 200 mls/hr 04/20/24 22:47 04/20/24 23:04 Rocephin 1 Gm / 100 Ml Nacl IV 04/20/24 23:16 200 mls/hr STAT ONE 200 mls/hr Administration Ceftriaxone Sodium Confirm 04/20/24 23:02 Rocephin 1 Gm / 100 Ml Nacl Administered 04/20/24 23:03 Dose 1 gm in 100 mls @ ud IV .STK-MED ONE Ondansetron HCl 4 mg 04/20/24 20:34 04/20/24 20:59 Ondansetron Hcl 4 Mg/2 Ml Vial IV 04/20/24 20:35 4 mg STAT ONE Administration Ondansetron HCl Confirm 04/20/24 20:38 Ondansetron Hcl 4 Mg/2 Ml Vial Administered 04/20/24 20:39 Dose 4 mg .ROUTE .STK-MED ONE Prochlorperazine Edisylate 5 mg 04/20/24 23:40 Prochlorperazine Edisylate 10 Mg/2 Ml Vial IV 04/20/24 23:41 STAT ONE Lab/Rad Data: Laboratory Result Diagrams 04/20/24 20:45 04/20/24 20:45 Laboratory Results 04/20/24 04/20/24 04/20/24 Range/Units 20:50 20:50 20:45 WBC (4.23-9.07) x10^3/uL RBC (4.63-6.08) x10^6/uL Hgb (13.7-17.5) g/dL Hct (40.1-51.0) % MCV (79.0-92.2) fL MCH (25.7-32.2) pg MCHC (32.3-36.5) g/dL RDW (11.6-14.4) % Plt Count (163-337) x10^3/uL MPV (9.4-12.4) fL Gran % (34.0-67.9) % Immature Gran % (Auto) (0.001-0.429) % Nucleat RBC Rel Count (0.00-0.2) % Eos # (Auto) (0.04-0.54) x10^3/uL Immature Gran # (Auto) (0.001-0.031) x10^3u/L Absolute Lymphs (auto) (1.32-3.57) x10^3/uL Absolute Monos (auto) (0.30-0.82) x10^3/uL Absolute Nucleated RBC (0.00-0.012) x10^3u/L Lymphocytes % (21.8-53.1) % Monocytes % (5.3-12.2) % Eosinophils % (0.8-7.0) % Basophils % (0.2-1.2) % Absolute Granulocytes (1.78-5.38) x10^3/uL Basophils # (0.01-0.08) x10^3/uL Sodium (135-145) mmol/L Potassium (3.5-5.1) mmol/L Chloride (98-107) mmol/L Carbon Dioxide (22-30) mmol/L Anion Gap (5-15) MEQ/L BUN (9-20) mg/dL Creatinine (0.66-1.25) mg/dL Estimated GFR ML/MIN Glucose (74-106) mg/dL Calcium (8.4-10.2) mg/dL Total Bilirubin (0.2-1.3) mg/dL AST (17-59) U/L ALT (0-50) U/L Alkaline Phosphatase (38-126) U/L Troponin I (0.000-0.033) ng/mL Serum Total Protein (6.3-8.2) g/dL Albumin (3.5-5.0) g/dL Monoscreen WEAKLY POSITIVE (NEGATIVE) Influenza Type A Ag NEGATIVE (NEGATIVE) Influenza Type B Ag NEGATIVE (NEGATIVE) RSV (PCR) NEGATIVE (NEGATIVE) SARS-CoV-2 (PCR) NEGATIVE (NEGATIVE) Group A Strep Antibody NOT DETECTED (NEGATIVE) Slides for Path Review 04/20/24 04/20/24 04/20/24 Range/Units 20:45 20:45 20:45 WBC 10.9 H (4.23-9.07) x10^3/uL RBC 3.56 L (4.63-6.08) x10^6/uL Hgb 12.0 L (13.7-17.5) g/dL Hct 36.3 L (40.1-51.0) % MCV 102.0 H (79.0-92.2) fL MCH 33.7 H (25.7-32.2) pg MCHC 33.1 (32.3-36.5) g/dL RDW 12.3 (11.6-14.4) % Plt Count 219 (163-337) x10^3/uL MPV 10.4 (9.4-12.4) fL Gran % 85.9 H (34.0-67.9) % Immature Gran % (Auto) 0.5 H (0.001-0.429) % Nucleat RBC Rel Count 0.0 (0.00-0.2) % Eos # (Auto) 0.03 L (0.04-0.54) x10^3/uL Immature Gran # (Auto) 0.05 H (0.001-0.031) x10^3u/L Absolute Lymphs (auto) 0.52 L (1.32-3.57) x10^3/uL Absolute Monos (auto) 0.90 H (0.30-0.82) x10^3/uL Absolute Nucleated RBC 0.00 (0.00-0.012) x10^3u/L Lymphocytes % 4.8 L (21.8-53.1) % Monocytes % 8.3 (5.3-12.2) % Eosinophils % 0.3 L (0.8-7.0) % Basophils % 0.2 (0.2-1.2) % Absolute Granulocytes 9.33 H (1.78-5.38) x10^3/uL Basophils # 0.02 (0.01-0.08) x10^3/uL Sodium 136 (135-145) mmol/L Potassium 3.5 (3.5-5.1) mmol/L Chloride 93 L (98-107) mmol/L Carbon Dioxide 35 H (22-30) mmol/L Anion Gap 10.4 (5-15) MEQ/L BUN 29 H (9-20) mg/dL Creatinine 0.69 (0.66-1.25) mg/dL Estimated GFR 104.6 ML/MIN Glucose 116 H (74-106) mg/dL Calcium 9.6 (8.4-10.2) mg/dL Total Bilirubin 0.70 (0.2-1.3) mg/dL AST 40 (17-59) U/L ALT 38 (0-50) U/L Alkaline Phosphatase 116 (38-126) U/L Troponin I < 0.012 (0.000-0.033) ng/mL Serum Total Protein 7.9 (6.3-8.2) g/dL Albumin 3.9 (3.5-5.0) g/dL Monoscreen (NEGATIVE) Influenza Type A Ag (NEGATIVE) Influenza Type B Ag (NEGATIVE) RSV (PCR) (NEGATIVE) SARS-CoV-2 (PCR) (NEGATIVE) Group A Strep Antibody (NEGATIVE) Slides for Path Review YES - Progress Progress: improved Air Movement: good Progress Note: 04/20/24 21:19 My medical decision making and the assignment of moderate complexity to this patient's medical issue today is based on review of the patient's past medical history, review of the patient's medication list, reviewed patient drug allergy list, history present illness and physical findings on examination. The workup and the patient includes intravenous line placement, infusion of crystalloid, CBC, CMP, troponin level, twelve-lead EKG, chest x-ray, viral swabs, monotest and CT scan of the head without contrast. Differential diagnosis includes was not limited to viral illness, mononucleosis, pneumonia, acute intracranial abnormality, electrolyte abnormalities, arrhythmia 04/20/24 21:44 I reassessed this patient, clinically, he feels much better after receiving intravenous pain medicine. 04/20/24 22:46 I interpreted the patient's preliminary chest x-ray report. When compared to similar study dated 11/25/2023, there appears to be a new left basilar lung infiltrate. I interpreted the patient's laboratory data results. The patient does have a mild leukocytosis with a left shift. In addition he has a weakly positive monotest. 04/20/24 23:36 I discussed the results of this patient's test results. Included in that is a CT scan of the head without contrast that was interpreted by the radiologist. The radiologist impression says normal skull morphology. No evidence of acute infarction, hemorrhage or mass effect. The patient is weak, he has been coughing, he has generalized aches and pains and has been diagnosed with mononucleosis as well as the left side pneumonia. He lives alone. He has not been eating or drinking well. He request that we place him in observation and provide him with breathing treatments, intravenous fluids, and intravenous antibiotics. We will call the telehospitalist on-call. 04/20/24 23:[address] Powell, our hospitalist on-call at this time. I reviewed the patient history, chief complaint, physical findings and workup results. We will place this patient in observation. Blood Culture(s) Obtained: Yes Antibiotics given: No Counseled pt/family regarding: lab results, diagnosis, need for follow-up, rad results Medical Desision Making - Independent Historian Additional History obtained from: Family - Diagnostic Testing Diagnostic test were ordered, analyzed, and reviewed by me: Yes Radiological Interpretation: Interpreted by me, Reviewed by me, Teleradiologist Report - Risk of complications The pt has a high risk of morbidity or mortality based on: Decision regarding hospitilization or escalation of hosp level of care - Departure Departure Disposition: Observation Clinical Impression: Left lower lobe pneumonia, Mononucleosis, Weakness, Fever Condition: Fair Critical Care Time: No Referrals: JAKOB MCBRIDE MD [Primary Care Provider] - Follow up/PCP as directed
[2024-04-20] MEDS: DUONEB 0.5-3 MG/3 ml Neb IH ONE (20:21)
[2024-04-20] MEDS ORDERED: DUONEB 0.5-3 MG/3 ml Neb IH ONE (20:21)
[2024-04-20] MEDS ORDERED: Zofran 4 MG/2 ML VIAL ONE (20:38)
[2024-04-20] MEDS ORDERED: Sodium Chloride 0.9% 1000 ML 1,000 ML ONE (20:38)
[2024-04-20] MEDS ORDERED: Hydromorphone 1 mg/ml Injection ONE (20:38)
[2024-04-20 20:55] LABS: Absolute Neutrophil Ct (ANC) 9.33 x10^3/uL (1.78-5.38); BASOPHIL % 0.2 % (0.2-1.2); Basophil (Absolute #) 0.02 x10^3/uL (0.01-0.08); Eosinophil % 0.3 % (0.8-7.0); Eosinophil (Absolute #) 0.03 x10^3/uL (0.04-0.54); Hematocrit 36.3 % (40.1-51.0); IMMATURE GRAN # 0.05 x10^3u/L (0.001-0.031); IMMATURE GRAN % 0.5 % (0.001-0.429); Lymphocyte (Absolute #) 0.52 x10^3/uL (1.32-3.57); Lymphocytes % 4.8 % (21.8-53.1); Mean Corpuscular Hemoglobin 33.7 pg (25.7-32.2); Mean Corpuscular Hgb Concent. 33.1 g/dL (32.3-36.5); Mean Platelet Volume 10.4 fL (9.4-12.4); Monocytes % 8.3 % (5.3-12.2); Neutrophil % 85.9 % (34.0-67.9); Platelet Count 219 x10^3/uL (163-337); Red Blood Count 3.56 x10^6/uL (4.63-6.08); Red Cell Distribution Width 12.3 % (11.6-14.4); White Blood Count 10.9 x10^3/uL (4.23-9.07)
[2024-04-20] MEDS: Sodium Chloride 0.9% 1000 ML 1,000 ML IV STA (20:58)
[2024-04-20] MEDS: Zofran 4 MG/2 ML VIAL IV ONE (20:59)
[2024-04-20] MEDS: Hydromorphone 1 mg/ml Injection IV ONE (20:59)
[2024-04-20 21:09] LABS: ALBUMIN 3.9 g/dL (3.5-5.0); ANION GAP 10.4 MEQ/L (5-15); BILIRUBIN,TOTAL 0.7 mg/dL (0.2-1.3); Calcium 9.6 mg/dL (8.4-10.2); Creatinine 1 0.69 mg/dL (0.66-1.25); EST GLOMERULAR FILTRATION RATE 104.6 ML/MIN; Potassium 3.5 mmol/L (3.5-5.1); Total Protein 7.9 g/dL (6.3-8.2)
[2024-04-20 21:31] LABS: INFLUENZA A NEGATIVE (NEGATIVE); INFLUENZA B NEGATIVE (NEGATIVE); RESPIRATORY SYNCTIAL VIRUS NEGATIVE (NEGATIVE); SARS-CoV-2 Xpert Express NEGATIVE (NEGATIVE)
--- NOTE | 2024-04-20 22:30 | XRAY ---
CLINICAL HISTORY: Severe headache COMPARISON: None. TECHNIQUE: An axial non-contrast CT scan of the brain was performed from the skull base to the high parietal region. One of the following dose reduction techniques was utilized for this exam: Automated exposure control, adjustment of the mA and/or kV according to patient size, and use of iterative reconstruction. FINDINGS: Brain Parenchyma: Normal attenuation of the cerebral hemispheres, cerebellum, and brainstem. No evidence of acute infarct, hemorrhage, or mass effect. No abnormal areas of hypo- or hyperattenuation. Ventricular System: Ventricles are normal in size and configuration. No evidence of hydrocephalus or ventricular enlargement. Subarachnoid Spaces: Normal sulci and cisterns. No evidence of subarachnoid hemorrhage or extra-axial fluid collections. Cerebellum and Brainstem: Normal size and signal. No masses, lesions, or areas of abnormal signal. Orbits: Normal appearance of the globes, optic nerves, and extraocular muscles. No evidence of orbital masses or abnormal signal. Sinuses: Clear paranasal sinuses. No evidence of sinusitis or mucosal thickening. Mastoid Air Cells: Clear mastoid air cells. No evidence of mastoiditis. Skull: Normal skull morphology. IMPRESSION: No evidence of acute infarct, hemorrhage, or mass effect. Suggest MRI for further evaluation if clinically warranted. Electronically Signed by: Sylvie Tristan MD. (04/20/2024 22:26:46 EST)
[2024-04-20] MEDS ORDERED: ROCEPHIN 1 GM / 100 ML NaCl 1 GM/100 ML IVPB IV ONE (23:02)
[2024-04-20] MEDS: ROCEPHIN 1 GM / 100 ML NaCl 1 GM/100 ML IVPB IV ONE (23:04)
[2024-04-20 23:13] LABS: Slide Review 1 YES
--- NOTE | 2024-04-20 23:56 | PCM.HP ---
History of Present Illness - Chief Complaint Chief Complaint: Acute mono History of Present Illness: Josue Ellington is a 63 year old male with esophageal cancer s/p esophageal stent who comes in with acute body aches, subjective fevers, headaches, found to be mono-screen positive. No diarrhea, vomiting. He was started on IVF and ceftriaxone in the ED. - Review of Systems Constitutional: No Fever, No Chills Eyes: No Symptoms Ears, Nose, & Throat: No Symptoms Respiratory: No Cough, No Short Of Breath Cardiac: No Chest Pain, No Edema, No Syncope Abdominal/Gastrointestinal: No Abdominal Pain, No Nausea, No Vomiting, No Diarrhea Genitourinary Symptoms: No Dysuria Musculoskeletal: No Back Pain, No Neck Pain Skin: No Rash Neurological: No Dizziness, No Focal Weakness, No Sensory Changes Psychological: No Symptoms Endocrine: No Symptoms Hematologic/Lymphatic: No Symptoms Immunological/Allergic: No Symptoms Medications & Allergies Home Medications: Home Medication List Hydrocodone/Acetaminophen [Hydrocodone-Acetamin 5-325 mg] 1 each PO DAILY 06/06/22 [History Confirmed 08/23/23] Ondansetron ODT 4 MG [Zofran Odt 4 mg] 4 mg PO Q6H PRN PRN #10 tablet 03/14/23 [Rx Confirmed 08/23/23] Rosuvastatin Calcium 20 mg PO DAILY 03/14/23 [History Confirmed 08/23/23] Levofloxacin [Levaquin 500 MG Tablet] 500 mg PO DAILY #7 tablet 11/25/23 [Rx] Allergies/Adverse Reactions: Allergies Allergy/AdvReac Type Severity Reaction Status Date / Time No Known Drug Allergies Allergy Verified 07/27/23 13:28 - Past Medical History Past Medical History: Yes (REVIEW INITIAL EVAL) Neurological History: No Pertinent History ENT History: Other Cardiac History: Arrhythmia, Hypertension Respiratory History: Pneumonia Endocrine Medical History: No Pertinent History Musculoskelatal History: Fractures GI Medical History: Other History: No Pertinent History Pyscho-Social History: Other Male Reproductive Disorders: No Pertinent History Comment: PATIENT HAS HX OF ESOPHAGEAL CANCER. HE HAD ESOPHAGEAL STINT PLACED 2023. - Past Surgical History Past Surgical History: Yes Neuro Surgical History: No Pertinent History Cardiac History: No Pertinent History Respiratory Surgery: No Pertinent History GI Surgical History: No Pertinent History Genitourinary Surgical Hx: No Pertinent History Musculskeletal Surgical Hx: Orthopedic Surgery Male Surgical History: No Pertinent History Other Surgical History: PEG TUBE PLACED APPROXIMATELY 4 YEARS AGO. - Social History Smoking Status: Current every day smoker How long have you smoked: 30+ years Exposure to second hand smoke: No Alcohol: None Drug Use: none - Social Determinants of Health Will the patient participate in the screening: Declined to provide - Physical Exam Vital Signs: Vital Signs - 24 hr Temp Pulse Resp BP Pulse Ox 04/20/24 21:00 96 H 22 113/56 91 L 04/20/24 20:30 98 H 17 108/65 92 L 04/20/24 20:23 93 H 16 96 04/20/24 20:15 100.6 F 93 H 18 95 04/20/24 20:11 89 18 143/76 97 General Appearance: no apparent distress, alert Neurologic Exam: alert, oriented x 3, cooperative, normal mood/affect, nml cerebellar function, nml station & gait, sensation nml, No motor deficits Eye Exam: PERRL/EOMI, eyes nml inspection Ears, Nose, Throat Exam: normal ENT inspection, TMs normal, pharynx normal, moist mucous membranes Neck Exam: normal inspection, non-tender, supple, full range of motion Respiratory Exam: normal breath sounds, lungs clear, No respiratory distress Cardiovascular Exam: regular rate/rhythm, normal heart sounds, normal peripheral pulses Gastrointestinal/Abdomen Exam: soft, normal bowel sounds, No tenderness, No mass Back Exam: normal inspection, normal range of motion, No CVA tenderness, No vertebral tenderness Extremity Exam: normal inspection, normal range of motion, pelvis stable Skin Exam: normal color, warm, dry, No rash Lymphatic Exam: No adenopathy Results - Labs Lab/Micro Results: Lab Results-Last 24 Hours 04/20/24 04/20/24 04/20/24 Range/Units 20:45 20:45 20:45 WBC 10.9 H (4.23-9.07) x10^3/uL RBC 3.56 L (4.63-6.08) x10^6/uL Hgb 12.0 L (13.7-17.5) g/dL Hct 36.3 L (40.1-51.0) % MCV 102.0 H (79.0-92.2) fL MCH 33.7 H (25.7-32.2) pg MCHC 33.1 (32.3-36.5) g/dL RDW 12.3 (11.6-14.4) % Plt Count 219 (163-337) x10^3/uL MPV 10.4 (9.4-12.4) fL Gran % 85.9 H (34.0-67.9) % Immature Gran % (Auto) 0.5 H (0.001-0.429) % Nucleat RBC Rel Count 0.0 (0.00-0.2) % Eos # (Auto) 0.03 L (0.04-0.54) x10^3/uL Immature Gran # (Auto) 0.05 H (0.001-0.031) x10^3u/L Absolute Lymphs (auto) 0.52 L (1.32-3.57) x10^3/uL Absolute Monos (auto) 0.90 H (0.30-0.82) x10^3/uL Absolute Nucleated RBC 0.00 (0.00-0.012) x10^3u/L Lymphocytes % 4.8 L (21.8-53.1) % Monocytes % 8.3 (5.3-12.2) % Eosinophils % 0.3 L (0.8-7.0) % Basophils % 0.2 (0.2-1.2) % Absolute Granulocytes 9.33 H (1.78-5.38) x10^3/uL Basophils # 0.02 (0.01-0.08) x10^3/uL Sodium 136 (135-145) mmol/L Potassium 3.5 (3.5-5.1) mmol/L Chloride 93 L (98-107) mmol/L Carbon Dioxide 35 H (22-30) mmol/L Anion Gap 10.4 (5-15) MEQ/L BUN 29 H (9-20) mg/dL Creatinine 0.69 (0.66-1.25) mg/dL Estimated GFR 104.6 ML/MIN Glucose 116 H (74-106) mg/dL Calcium 9.6 (8.4-10.2) mg/dL Total Bilirubin 0.70 (0.2-1.3) mg/dL AST 40 (17-59) U/L ALT 38 (0-50) U/L Alkaline Phosphatase 116 (38-126) U/L Troponin I < 0.012 (0.000-0.033) ng/mL Serum Total Protein 7.9 (6.3-8.2) g/dL Albumin 3.9 (3.5-5.0) g/dL Monoscreen (NEGATIVE) Influenza Type A Ag (NEGATIVE) Influenza Type B Ag (NEGATIVE) RSV (PCR) (NEGATIVE) SARS-CoV-2 (PCR) (NEGATIVE) Group A Strep Antibody (NEGATIVE) Slides for Path Review YES 04/20/24 04/20/24 04/20/24 Range/Units 20:45 20:50 20:50 WBC (4.23-9.07) x10^3/uL RBC (4.63-6.08) x10^6/uL Hgb (13.7-17.5) g/dL Hct (40.1-51.0) % MCV (79.0-92.2) fL MCH (25.7-32.2) pg MCHC (32.3-36.5) g/dL RDW (11.6-14.4) % Plt Count (163-337) x10^3/uL MPV (9.4-12.4) fL Gran % (34.0-67.9) % Immature Gran % (Auto) (0.001-0.429) % Nucleat RBC Rel Count (0.00-0.2) % Eos # (Auto) (0.04-0.54) x10^3/uL Immature Gran # (Auto) (0.001-0.031) x10^3u/L Absolute Lymphs (auto) (1.32-3.57) x10^3/uL Absolute Monos (auto) (0.30-0.82) x10^3/uL Absolute Nucleated RBC (0.00-0.012) x10^3u/L Lymphocytes % (21.8-53.1) % Monocytes % (5.3-12.2) % Eosinophils % (0.8-7.0) % Basophils % (0.2-1.2) % Absolute Granulocytes (1.78-5.38) x10^3/uL Basophils # (0.01-0.08) x10^3/uL Sodium (135-145) mmol/L Potassium (3.5-5.1) mmol/L Chloride (98-107) mmol/L Carbon Dioxide (22-30) mmol/L Anion Gap (5-15) MEQ/L BUN (9-20) mg/dL Creatinine (0.66-1.25) mg/dL Estimated GFR ML/MIN Glucose (74-106) mg/dL Calcium (8.4-10.2) mg/dL Total Bilirubin (0.2-1.3) mg/dL AST (17-59) U/L ALT (0-50) U/L Alkaline Phosphatase (38-126) U/L Troponin I (0.000-0.033) ng/mL Serum Total Protein (6.3-8.2) g/dL Albumin (3.5-5.0) g/dL Monoscreen WEAKLY POSITIVE (NEGATIVE) Influenza Type A Ag NEGATIVE (NEGATIVE) Influenza Type B Ag NEGATIVE (NEGATIVE) RSV (PCR) NEGATIVE (NEGATIVE) SARS-CoV-2 (PCR) NEGATIVE (NEGATIVE) Group A Strep Antibody NOT DETECTED (NEGATIVE) Slides for Path Review - Radiology Impressions Radiology Exams & Impressions: Radiology Procedures Category Date Time Status CHEST 1 VIEW (PORTABLE) Stat Exams 04/20/24 20:34 Taken HEAD WITHOUT CONTRAST [CT] Stat Exams 04/20/24 21:03 Completed - Other Procedures and Tests Respiratory Therapy 04/20/24 20:20 Respiratory Therapy Assessment DAILY Assessment/Plan (1) Mononucleosis Current Visit: Yes Status: Acute Assessment & Plan: 1. Continue IVF 2. Acetaminophen PRN 3. Trend labs 4. Hold off on Abx Code(s): B27.90 - INFECTIOUS MONONUCLEOSIS, UNSPECIFIED WITHOUT COMPLICATION Telemedicine Encounter - Telemedicine Encounter Telemedicine Encounter: "The entirety of this encounter was performed via Telemedicine" This visit was performed using real-time audio and video connection between my location and thepatients locationwith the assistance of a surrogateat the patients location. Written or verbal consent was obtained from the patient/guardian to perform this visit usingsynchrLucernextelemedicine technology. Any patient questions regarding the telemedicine interaction were answered.
[2024-04-20] MEDS ORDERED: Compazine 10 MG/2 ML ONE (23:58)
[2024-04-21] MEDS ORDERED: Zofran 4 MG/2 ML VIAL IV PRN (00:04)
[2024-04-21] MEDS: Compazine 10 MG/2 ML IV ONE (00:04)
[2024-04-21] MEDS: Sodium Chloride 0.9% 1000 ML 1,000 ML IV SCH ×2 (00:27)
[2024-04-21] MEDS ORDERED: TYLENOL 325 MG PO PRN (00:28)
[2024-04-21] MEDS: Zofran 4 MG/2 ML VIAL IV PRN (01:45)
[2024-04-21] MEDS: Hydromorphone 1 mg/ml Injection IV PRN (01:45)
--- NOTE | 2024-04-21 05:59 | PCM.NOTE ---
Date and Time: 04/21/24 0556 Subjective Assessment: Josue Ellington is a 63 year old male with esophageal cancer s/p esophageal stent who presented 04/20/24 with complaints of acute body aches, subjective fevers, headaches, found to be mono-screen positive. No diarrhea, vomiting. CXR with left lung infiltrate. He was started on IVF and ceftriaxone in the ED. Will continue with Zosyn. 04/21/24: Met with patient bedside. Complains of dyspnea and pain from the waist up. On RA. States pain has been chronic since esophageal stent placement. Patient receiving immunotherapy -Keytruda every three weeks with Dr. Cabrera. Has chronic dysphagia with a feeding tube placed. [place] weakly positive. CXR with infiltrate. May be secondary to aspiration. Will change abx to zosyn. - Review of Systems Constitutional: Weakness, Other (body aches all over ) Eyes: No Symptoms Ears, Nose, & Throat: No Symptoms Respiratory: Cough, Short Of Breath Cardiac: No Symptoms Abdominal/Gastrointestinal: No Symptoms Genitourinary Symptoms: No Symptoms Musculoskeletal: Joint Pain, Myalgias Neurological: No Symptoms Psychological: No Symptoms Endocrine: No Symptoms Hematologic/Lymphatic: No Symptoms Immunological/Allergic: No Symptoms Objective Exam General Appearance: no apparent distress, cachetic Neurologic Exam: alert, oriented x 3, cooperative Skin Exam: normal color Eye Exam: PERRL Ears, Nose, Throat Exam: normal ENT inspection Neck Exam: normal inspection Respiratory Exam: crackles/rales Cardiovascular Exam: regular rate/rhythm, normal heart sounds Gastrointestinal/Abdomen Exam: soft, normal bowel sounds Extremity Exam: normal inspection Back Exam: normal inspection Male Genitalia Exam: deferred Rectal Exam: deferred Objective Data Vital Signs: Vital Signs - 24 hr Temp Pulse Resp BP BP Pulse Ox 04/21/24 04:00 97.3 F 89 16 145/66 92 L 04/21/24 02:00 97.3 F 89 16 145/66 92 L 04/21/24 01:02 97.3 F 89 16 145/66 92 L 04/21/24 01:01 97.3 F 89 16 92 L 04/21/24 00:28 92 L 04/21/24 00:00 82 21 106/56 92 L 04/20/24 23:30 83 17 125/64 90 L 04/20/24 23:00 83 22 129/65 93 L 04/20/24 22:30 85 18 121/69 96 04/20/24 22:00 86 17 121/71 93 L 04/20/24 21:50 84 15 95 04/20/24 21:40 83 23 98 04/20/24 21:36 96 H 13 81 L 04/20/24 21:00 96 H 22 113/56 91 L 04/20/24 20:30 98 H 17 108/65 92 L 04/20/24 20:23 93 H 16 96 04/20/24 20:15 100.6 F 93 H 18 95 04/20/24 20:11 89 18 143/76 97 Pain Assessment - Last Documented Pain Intensity 8 Pain Scale Used 0-10 Pain Scale Intake and Output: Intake & Output 04/18/24 04/19/24 04/20/24 04/21/24 11:59 11:59 11:59 11:59 Weight 51.4 kg Lab Results: Lab Results-Last 24 Hours 04/20/24 04/20/24 04/20/24 Range/Units 20:45 20:45 20:45 WBC 10.9 H (4.23-9.07) x10^3/uL RBC 3.56 L (4.63-6.08) x10^6/uL Hgb 12.0 L (13.7-17.5) g/dL Hct 36.3 L (40.1-51.0) % MCV 102.0 H (79.0-92.2) fL MCH 33.7 H (25.7-32.2) pg MCHC 33.1 (32.3-36.5) g/dL RDW 12.3 (11.6-14.4) % Plt Count 219 (163-337) x10^3/uL MPV 10.4 (9.4-12.4) fL Gran % 85.9 H (34.0-67.9) % Immature Gran % (Auto) 0.5 H (0.001-0.429) % Nucleat RBC Rel Count 0.0 (0.00-0.2) % Eos # (Auto) 0.03 L (0.04-0.54) x10^3/uL Immature Gran # (Auto) 0.05 H (0.001-0.031) x10^3u/L Absolute Lymphs (auto) 0.52 L (1.32-3.57) x10^3/uL Absolute Monos (auto) 0.90 H (0.30-0.82) x10^3/uL Absolute Nucleated RBC 0.00 (0.00-0.012) x10^3u/L Lymphocytes % 4.8 L (21.8-53.1) % Monocytes % 8.3 (5.3-12.2) % Eosinophils % 0.3 L (0.8-7.0) % Basophils % 0.2 (0.2-1.2) % Absolute Granulocytes 9.33 H (1.78-5.38) x10^3/uL Basophils # 0.02 (0.01-0.08) x10^3/uL Sodium 136 (135-145) mmol/L Potassium 3.5 (3.5-5.1) mmol/L Chloride 93 L (98-107) mmol/L Carbon Dioxide 35 H (22-30) mmol/L Anion Gap 10.4 (5-15) MEQ/L BUN 29 H (9-20) mg/dL Creatinine 0.69 (0.66-1.25) mg/dL Estimated GFR 104.6 ML/MIN Glucose 116 H (74-106) mg/dL Calcium 9.6 (8.4-10.2) mg/dL Total Bilirubin 0.70 (0.2-1.3) mg/dL AST 40 (17-59) U/L ALT 38 (0-50) U/L Alkaline Phosphatase 116 (38-126) U/L Troponin I < 0.012 (0.000-0.033) ng/mL Serum Total Protein 7.9 (6.3-8.2) g/dL Albumin 3.9 (3.5-5.0) g/dL Monoscreen (NEGATIVE) Influenza Type A Ag (NEGATIVE) Influenza Type B Ag (NEGATIVE) RSV (PCR) (NEGATIVE) SARS-CoV-2 (PCR) (NEGATIVE) Group A Strep Antibody (NEGATIVE) Slides for Path Review YES 04/20/24 04/20/24 04/20/24 Range/Units 20:45 20:50 20:50 WBC (4.23-9.07) x10^3/uL RBC (4.63-6.08) x10^6/uL Hgb (13.7-17.5) g/dL Hct (40.1-51.0) % MCV (79.0-92.2) fL MCH (25.7-32.2) pg MCHC (32.3-36.5) g/dL RDW (11.6-14.4) % Plt Count (163-337) x10^3/uL MPV (9.4-12.4) fL Gran % (34.0-67.9) % Immature Gran % (Auto) (0.001-0.429) % Nucleat RBC Rel Count (0.00-0.2) % Eos # (Auto) (0.04-0.54) x10^3/uL Immature Gran # (Auto) (0.001-0.031) x10^3u/L Absolute Lymphs (auto) (1.32-3.57) x10^3/uL Absolute Monos (auto) (0.30-0.82) x10^3/uL Absolute Nucleated RBC (0.00-0.012) x10^3u/L Lymphocytes % (21.8-53.1) % Monocytes % (5.3-12.2) % Eosinophils % (0.8-7.0) % Basophils % (0.2-1.2) % Absolute Granulocytes (1.78-5.38) x10^3/uL Basophils # (0.01-0.08) x10^3/uL Sodium (135-145) mmol/L Potassium (3.5-5.1) mmol/L Chloride (98-107) mmol/L Carbon Dioxide (22-30) mmol/L Anion Gap (5-15) MEQ/L BUN (9-20) mg/dL Creatinine (0.66-1.25) mg/dL Estimated GFR ML/MIN Glucose (74-106) mg/dL Calcium (8.4-10.2) mg/dL Total Bilirubin (0.2-1.3) mg/dL AST (17-59) U/L ALT (0-50) U/L Alkaline Phosphatase (38-126) U/L Troponin I (0.000-0.033) ng/mL Serum Total Protein (6.3-8.2) g/dL Albumin (3.5-5.0) g/dL Monoscreen WEAKLY POSITIVE (NEGATIVE) Influenza Type A Ag NEGATIVE (NEGATIVE) Influenza Type B Ag NEGATIVE (NEGATIVE) RSV (PCR) NEGATIVE (NEGATIVE) SARS-CoV-2 (PCR) NEGATIVE (NEGATIVE) Group A Strep Antibody NOT DETECTED (NEGATIVE) Slides for Path Review Radiology Exams: Radiology Procedures Category Date Time Status CHEST 1 VIEW (PORTABLE) Stat Exams 04/20/24 20:34 Taken HEAD WITHOUT CONTRAST [CT] Stat Exams 04/20/24 21:03 Completed Assessment/Plan (1) Left lower lobe pneumonia Current Visit: Yes Status: Acute Assessment & Plan: -CXR -Ceftriaxone initiated in ED, will continue with Zosyn -supplemental oxygen with goal spo2 > 92% - currently at baseline RA -NeBs prn -WBC reviewed and down-trending 9.6<10.9 Code(s): J18.9 - PNEUMONIA, UNSPECIFIED ORGANISM (2) Mononucleosis Current Visit: Yes Status: Acute Assessment & Plan: -[place] spot reviewed and weakly positive -Supportive care -CMP reviewed - initial LFTs wnl - continue to monitor Code(s): B27.90 - INFECTIOUS MONONUCLEOSIS, UNSPECIFIED WITHOUT COMPLICATION (3) Leukocytosis Current Visit: Yes Status: Acute Assessment & Plan: -Most likely secondary to pneumonia - -WBC reviewed and down-trending 9.6<10.9 -Continue abx for pneumonia Code(s): D72.829 - ELEVATED WHITE BLOOD CELL COUNT, UNSPECIFIED (4) Anemia Current Visit: Yes Status: Acute Assessment & Plan: -Stable at 11.7 -iron studies show iron saturation at 15% - will start ferrous sulfate Code(s): D64.9 - ANEMIA, UNSPECIFIED (5) HTN (hypertension) Current Visit: Yes Status: Acute Assessment & Plan: -stable - continue home meds Code(s): I10 - ESSENTIAL (PRIMARY) HYPERTENSION (6) History of esophageal cancer Current Visit: Yes Status: Acute Assessment & Plan: -noted - esophageal stent placed several months ago -Follows with Dr. Cabrera - oncology - on Keytruda Q3 weeks -Feeding tube for meds and meals Code(s): Z85.01 - PERSONAL HISTORY OF MALIGNANT NEOPLASM OF ESOPHAGUS (7) History of cardiac arrhythmia Current Visit: Yes Status: Acute Assessment & Plan: -Patient states he has a history of AFIB - states he sees Dr. Michaels - no longer on medications per cardiology Code(s): Z86.79 - PERSONAL HISTORY OF OTHER DISEASES OF THE CIRCULATORY SYSTEM (8) Generalized weakness Current Visit: Yes Status: Acute Assessment & Plan: -Most likely secondary to mono/pneumonia -PT eval Code(s): R53.1 - WEAKNESS
[2024-04-21 06:52] LABS: Absolute Neutrophil Ct (ANC) 8.18 x10^3/uL (1.78-5.38); BASOPHIL % 0.2 % (0.2-1.2); Basophil (Absolute #) 0.02 x10^3/uL (0.01-0.08); Eosinophil % 0.3 % (0.8-7.0); Eosinophil (Absolute #) 0.03 x10^3/uL (0.04-0.54); Hematocrit 35.8 % (40.1-51.0); Hemoglobin 11.7 g/dL (13.7-17.5); IMMATURE GRAN # 0.04 x10^3u/L (0.001-0.031); IMMATURE GRAN % 0.4 % (0.001-0.429); Lymphocytes % 5.2 % (21.8-53.1); Mean Cell Volume 102.6 fL (79.0-92.2); Mean Corpuscular Hemoglobin 33.5 pg (25.7-32.2); Mean Corpuscular Hgb Concent. 32.7 g/dL (32.3-36.5); Mean Platelet Volume 10.8 fL (9.4-12.4); Monocyte (Absolute #) 0.78 x10^3/uL (0.30-0.82); Monocytes % 8.2 % (5.3-12.2); Neutrophil % 85.7 % (34.0-67.9); Platelet Count 203 x10^3/uL (163-337); Red Blood Count 3.49 x10^6/uL (4.63-6.08); Red Cell Distribution Width 12.3 % (11.6-14.4); White Blood Count 9.6 x10^3/uL (4.23-9.07)
[2024-04-21 07:10] LABS: ALBUMIN 3.7 g/dL (3.5-5.0); ANION GAP 10.2 MEQ/L (5-15); BILIRUBIN,TOTAL 0.6 mg/dL (0.2-1.3); Calcium 9.6 mg/dL (8.4-10.2); Creatinine 1 0.62 mg/dL (0.66-1.25); EST GLOMERULAR FILTRATION RATE 108.1 ML/MIN; Potassium 3.9 mmol/L (3.5-5.1); Total Protein 7.3 g/dL (6.3-8.2)
--- NOTE | 2024-04-21 07:49 | XRAY ---
Indication: Cough. Comparison: February 26, 2024 Portable chest again hyperinflated with new left lower lobe infiltrate/atelectasis. Also left lower lobe petechial radiopacities following recent modified barium swallow study. Above findings concerning for aspiration. Remaining heart and right lung unremarkable. Stable esophageal stent and left Port-A-Cath. Bony thorax intact again with osteopenia and degenerative changes.
[2024-04-21 07:54] LABS: Iron 34 ug/dL (49-181); Iron Saturation 15 % (20-39); Slide Review 1 YES; TIBC 223 ug/dL (261-497)
[2024-04-21 08:52] LABS: Folate (Folic Acid) 12.7 ng/mL (2.76 - >20)
[2024-04-21] MEDS: NORCO 5/325 MG PO PRN (09:05)
[2024-04-21] MEDS: Zithromax 500 MG/ 250 ML NaCl Premix 500 MG/250 ML IVPB IV SCH (09:09)
[2024-04-21] MEDS ORDERED: ZOCOR 20MG PO SCH (10:00)
[2024-04-21] MEDS: PIPERACILLIN/TAZOBACTAM 3.375 GM in Sodium Chloride 100ML MINI-BAG PLUS 100 ML IV SCH (12:02)
[2024-04-21] MEDS: FEOSOL 325 MG PO SCH (12:03)
[2024-04-21] MEDS: ZOCOR 20MG PO SCH (12:03)
[2024-04-21] MEDS ORDERED: ROCEPHIN 1 GM / 100 ML NaCl 1 GM/100 ML IVPB IV SCH (22:00)
[2024-04-22 06:08] LABS: ALBUMIN 3.1 g/dL (3.5-5.0); ANION GAP 6.9 MEQ/L (5-15); BILIRUBIN,TOTAL 0.5 mg/dL (0.2-1.3); Creatinine 1 0.68 mg/dL (0.66-1.25); EST GLOMERULAR FILTRATION RATE 105.1 ML/MIN; Potassium 3.8 mmol/L (3.5-5.1); Total Protein 6.4 g/dL (6.3-8.2)
[2024-04-22 06:09] LABS: BASOPHIL % 0.1 % (0.2-1.2); Basophil (Absolute #) 0.01 x10^3/uL (0.01-0.08); Eosinophil % 1.6 % (0.8-7.0); Eosinophil (Absolute #) 0.11 x10^3/uL (0.04-0.54); Hematocrit 32.8 % (40.1-51.0); Hemoglobin 10.4 g/dL (13.7-17.5); IMMATURE GRAN # 0.03 x10^3u/L (0.001-0.031); IMMATURE GRAN % 0.4 % (0.001-0.429); Lymphocyte (Absolute #) 0.48 x10^3/uL (1.32-3.57); Lymphocytes % 6.9 % (21.8-53.1); Mean Cell Volume 104.8 fL (79.0-92.2); Mean Corpuscular Hemoglobin 33.2 pg (25.7-32.2); Mean Corpuscular Hgb Concent. 31.7 g/dL (32.3-36.5); Mean Platelet Volume 11.1 fL (9.4-12.4); Monocyte (Absolute #) 0.67 x10^3/uL (0.30-0.82); Monocytes % 9.6 % (5.3-12.2); Neutrophil % 81.4 % (34.0-67.9); Platelet Count 217 x10^3/uL (163-337); Red Blood Count 3.13 x10^6/uL (4.63-6.08); Red Cell Distribution Width 12.5 % (11.6-14.4)
--- NOTE | 2024-04-22 11:44 | PCM.DS ---
Discharge Summary Date of Admission: 04/21/24 00:23 Date of Discharge: 04/22/24 Admitting Physician: MELINA MCCRACKEN MD Primary Care Provider: JAKOB MCBRIDE Allergies Allergies No Known Drug Allergies Allergy (Verified 07/27/23 13:28) Hospital Summary - Hospital Course Hospital Course: 04/22/24 Josue Ellington is a 63 year old male with esophageal cancer s/p esophageal stent. He presented 04/20/24 with complaints of acute body aches, subjective fevers, headaches, found to be mono-screen positive. No diarrhea, vomiting. CXR with left lung infiltrate. He was started on IVF and ceftriaxone in the ED. Started on Zosyn IP. Labs improved and he is feeling better but has continued weakness. He was able to work with PT and he was weak but refused OP PT eval or HHC. Pt is going to call Oncology for OP uncontrolled pain. Pt would like to d/c today as he has a PET scan scheduled for tomorrow. He denies any further concerns at this time. Education provided verbally about MONO per pt request. > 32 minutes spent on d/c today. - Vitals & Intake/Output Vital Signs: Vital Signs Temperature 98.8 F 04/22/24 08:00 Pulse Rate 77 04/22/24 08:00 Respiratory Rate 20 04/22/24 08:00 Blood Pressure 108/57 04/22/24 08:00 O2 Sat by Pulse Oximetry 91 L 04/22/24 08:00 Intake & Output: Intake & Output 04/19/24 04/20/24 04/21/24 04/22/24 11:59 11:59 11:59 11:59 Intake Total 240 1970 Output Total 100 Balance 240 1870 Weight 51.4 kg - Lab Result Diagrams: 04/22/24 05:40 04/22/24 05:40 Lab Results-Last 24 Hrs: Lab Results-Last 24 Hours 04/22/24 04/22/24 Range/Units 05:40 05:40 WBC 7.0 (4.23-9.07) x10^3/uL RBC 3.13 L (4.63-6.08) x10^6/uL Hgb 10.4 L (13.7-17.5) g/dL Hct 32.8 L (40.1-51.0) % MCV 104.8 H (79.0-92.2) fL MCH 33.2 H (25.7-32.2) pg MCHC 31.7 L (32.3-36.5) g/dL RDW 12.5 (11.6-14.4) % Plt Count 217 (163-337) x10^3/uL MPV 11.1 (9.4-12.4) fL Gran % 81.4 H (34.0-67.9) % Immature Gran % (Auto) 0.4 (0.001-0.429) % Nucleat RBC Rel Count 0.0 (0.00-0.2) % Eos # (Auto) 0.11 (0.04-0.54) x10^3/uL Immature Gran # (Auto) 0.03 (0.001-0.031) x10^3u/L Absolute Lymphs (auto) 0.48 L (1.32-3.57) x10^3/uL Absolute Monos (auto) 0.67 (0.30-0.82) x10^3/uL Absolute Nucleated RBC 0.00 (0.00-0.012) x10^3u/L Lymphocytes % 6.9 L (21.8-53.1) % Monocytes % 9.6 (5.3-12.2) % Eosinophils % 1.6 (0.8-7.0) % Basophils % 0.1 L (0.2-1.2) % Absolute Granulocytes 5.70 H (1.78-5.38) x10^3/uL Basophils # 0.01 (0.01-0.08) x10^3/uL Sodium 140 (135-145) mmol/L Potassium 3.8 (3.5-5.1) mmol/L Chloride 103 (98-107) mmol/L Carbon Dioxide 33 H (22-30) mmol/L Anion Gap 6.9 (5-15) MEQ/L BUN 21 H (9-20) mg/dL Creatinine 0.68 (0.66-1.25) mg/dL Estimated GFR 105.1 ML/MIN Glucose 82 (74-106) mg/dL Calcium 9.0 (8.4-10.2) mg/dL Total Bilirubin 0.50 (0.2-1.3) mg/dL AST 46 (17-59) U/L ALT 36 (0-50) U/L Alkaline Phosphatase 88 (38-126) U/L Serum Total Protein 6.4 (6.3-8.2) g/dL Albumin 3.1 L (3.5-5.0) g/dL - Radiology Exams Ordered Rad Exams-Entire Visit: Radiology Procedures Category Date Time Status CHEST 1 VIEW (PORTABLE) Stat Exams 04/20/24 20:34 Completed HEAD WITHOUT CONTRAST [CT] Stat Exams 04/20/24 21:03 Completed - Procedures and Test Procedures and Tests throughout Hospitalization: Therapy Orders & Screens 04/20/24 20:20 Respiratory Therapy Assessment DAILY Comment: 04/21/24 00:28 Respiratory Therapy Consult ONCE Comment: Reason For Exam: 04/22/24 07:51 PT Eval & Treat ( Order) ONCE Reason for Eval:: weakness- home needs vs. OP PT needs Diagnosis: Acute mono Discharge Exam General Appearance: no apparent distress, alert Neurologic Exam: alert, oriented x 3, cooperative, normal mood/affect, nml cerebellar function, sensation nml, No motor deficits Eye Exam: PERRL, EOMI, eyes nml inspection Ears, Nose, Throat Exam: normal ENT inspection, pharynx normal, moist mucous membranes Neck Exam: normal inspection, non-tender, supple, full range of motion Respiratory Exam: normal breath sounds, lungs clear, No respiratory distress Cardiovascular Exam: regular rate/rhythm, normal heart sounds Gastrointestinal/Abdomen Exam: soft, No tenderness, No mass Male Genitalia Exam: deferred Rectal Exam: deferred Back Exam: normal inspection, normal range of motion, No CVA tenderness, No vertebral tenderness Extremity Exam: normal inspection, normal range of motion Skin Exam: normal color, warm, dry Final Diagnosis/Problem List - Final Discharge Diagnosis/Problem (1) Left lower lobe pneumonia Current Visit: Yes Status: Acute Code(s): J18.9 - PNEUMONIA, UNSPECIFIED ORGANISM (2) Mononucleosis Current Visit: Yes Status: Acute Code(s): B27.90 - INFECTIOUS MONONUCLEOSIS, UNSPECIFIED WITHOUT COMPLICATION (3) Leukocytosis Current Visit: Yes Status: Acute Code(s): D72.829 - ELEVATED WHITE BLOOD CELL COUNT, UNSPECIFIED (4) Anemia Current Visit: Yes Status: Acute Code(s): D64.9 - ANEMIA, UNSPECIFIED (5) HTN (hypertension) Current Visit: Yes Status: Acute Code(s): I10 - ESSENTIAL (PRIMARY) HYPERTENSION (6) History of esophageal cancer Current Visit: Yes Status: Acute Code(s): Z85.01 - PERSONAL HISTORY OF MALIGNANT NEOPLASM OF ESOPHAGUS (7) History of cardiac arrhythmia Current Visit: Yes Status: Acute Code(s): Z86.79 - PERSONAL HISTORY OF OTHER DISEASES OF THE CIRCULATORY SYSTEM (8) Generalized weakness Current Visit: Yes Status: Acute Assessment & Plan: (1) Left lower lobe pneumonia Current Visit: Yes Status: Acute Assessment & Plan: -CXR reviewed -Ceftriaxone initiated in ED, will continue with Zosyn -supplemental oxygen with goal spo2 > 92% - currently at baseline RA 92% -NeBs prn -WBC reviewed and WNL today Code(s): J18.9 - PNEUMONIA, UNSPECIFIED ORGANISM (2) Mononucleosis Current Visit: Yes Status: Acute Assessment & Plan: -[place]olt spot reviewed and weakly positive -Supportive care -CMP reviewed - initial LFTs wnl - continue to monitor - verbal education provided Code(s): B27.90 - INFECTIOUS MONONUCLEOSIS, UNSPECIFIED WITHOUT COMPLICATION (3) Leukocytosis Current Visit: Yes Status: Acute Assessment & Plan: -Most likely secondary to pneumonia - -WBC reviewed and WNL -Continue abx for pneumonia Code(s): D72.829 - ELEVATED WHITE BLOOD CELL COUNT, UNSPECIFIED (4) Anemia Current Visit: Yes Status: Acute Assessment & Plan: -Stable at 10.4 -iron studies show iron saturation at 15% - will start ferrous sulfate Code(s): D64.9 - ANEMIA, UNSPECIFIED (5) HTN (hypertension) Current Visit: Yes Status: Acute Assessment & Plan: -stable - continue home meds Code(s): I10 - ESSENTIAL (PRIMARY) HYPERTENSION (6) History of esophageal cancer Current Visit: Yes Status: Acute Assessment & Plan: -noted - esophageal stent placed several months ago -Follows with Dr. Cabrera - oncology - on Keytruda Q3 weeks -Feeding tube for meds and meals - Pt to call oncology for pain management Code(s): Z85.01 - PERSONAL HISTORY OF MALIGNANT NEOPLASM OF ESOPHAGUS (7) History of cardiac arrhythmia Current Visit: Yes Status: Acute Assessment & Plan: -Patient states he has a history of AFIB - states he sees Dr. Xenia - no longer on medications per cardiology Code(s): Z86.79 - PERSONAL HISTORY OF OTHER DISEASES OF THE CIRCULATORY SYSTEM (8) Generalized weakness Current Visit: Yes Status: Acute Assessment & Plan: -Most likely secondary to mono/pneumonia -PT eval - pt refuses HHC or OP rehab - F/U with ST OP Code(s): R53.1 - WEAKNESS Code(s): R53.1 - WEAKNESS - Discharge Discharge Date: 04/22/24 Disposition: Home, Self-Care Condition: Fair Prescriptions: New Ferrous Sulfate 325 mg [Feosol 325 mg] 325 mg PO DAILY 30 Days #30 tablet levoFLOXacin [Levofloxacin] 750 mg PO DAILY 5 Days #5 tablet Continue Hydrocodone/Acetaminophen [Hydrocodone-Acetamin 5-325 mg] 1 each PO Q6HPRN PRN PRN Reason: Pain Rosuvastatin Calcium 20 mg PO LUNCH Additional Instructions: Please call Dr. Cabrera about your uncontrolled pain today. Follow up with: JAKOB MCBRIDE MD [Primary Care Provider] - 05/01/24 2:15 pm
[2024-04-22 11:50] VITALS: BP 131/60; PULSE 70; RESP 18; TEMP 98.1; O2SAT 93
== END 2024-04-22 14:49 | disposition home or self-care (01) ==
LOC: ED 20:08 → MED SURG 04-21 00:23
PROVIDERS: ADMIT Student in an Organized Health Care Education/Training Program; ATTEND Student in an Organized Health Care Education/Training Program
DX: J18.9 Pneumonia, unspecified organism (principal); B27.90 Infectious mononucleosis, unspecified without complication; D72.829 Elevated white blood cell count, unspecified; D64.9 Anemia, unspecified; I10 Essential (primary) hypertension; C15.9 Malignant neoplasm of esophagus, unspecified; R53.1 Weakness; F17.200 Nicotine dependence, unspecified, uncomplicated; Z85.01 Personal history of malignant neoplasm of esophagus; Z86.79 Personal history of other diseases of the circulatory system; Z79.899 Other long term (current) drug therapy
CPT/HCPCS: 0241U; 36415; 70450; 71045; 80053; 82607; 82728; 82746; 83540; 83550; 83880; 84484; 85025; 86308; 87651; 93005; 94640; 96374; 96375; 97161; 99285; G0378; Q3014; J0456; J0696; J1171; J1642; J2405; A9270-GY

== ENCOUNTER 2024-06-06 11:47 | Day surgery (SDC) | payer MEDICARE ==
[2024-06-06] MEDS ORDERED: CEFAZOLIN 2 GM/100 ML NaCl 2 GM/100 ML IVPB IV ONE (12:05)
[2024-06-06] MEDS ORDERED: Lactated Ringers 1,000 ML IV ONE (12:05)
[2024-06-06] MEDS ORDERED: propofoL IV ONE (12:23)
[2024-06-06] MEDS ORDERED: ROCURONIUM BROMIDE IV ONE (12:24)
[2024-06-06] MEDS ORDERED: Zofran 4 MG/2 ML VIAL ONE (12:24)
[2024-06-06] MEDS ORDERED: Xylocaine-Mpf 2% 5 Ml Vial ONE (12:24)
[2024-06-06] MEDS ORDERED: SUBLIMAZE 100 MCG/2 ML ONE ×2 (12:27→14:09)
[2024-06-06] MEDS: Lactated Ringers 1,000 ML IV SCH (12:43)
[2024-06-06] MEDS: CEFAZOLIN 2 GM/100 ML NaCl 2 GM/100 ML IVPB IV SCH (12:44)
[2024-06-06 12:57] LABS: ANION GAP 11.6 MEQ/L (5-15); Calcium 9.8 mg/dL (8.4-10.2); Creatinine 1 0.61 mg/dL (0.66-1.25); EST GLOMERULAR FILTRATION RATE 108.6 ML/MIN; Potassium 3.9 mmol/L (3.5-5.1)
[2024-06-06] MEDS ORDERED: Sensorcaine 0.25% 10 ML ONE (13:04)
[2024-06-06] MEDS ORDERED: PHENYLEPHRINE HCL ONE (13:12)
[2024-06-06] MEDS ORDERED: Sodium Chloride 0.9% 10 ML FLUSH Syringe PORT FLUSH PRN (14:47)
[2024-06-06 14:56] VITALS: BP 150/84; PULSE 75; RESP 16; TEMP 98.4; O2SAT 95
--- NOTE | 2024-06-07 14:20 | OP ---
SURGERY DATE/TIME: 06/06/2024 [id number] PREOPERATIVE DIAGNOSIS: Possible temporal arteritis. POSTOPERATIVE DIAGNOSIS: Possible temporal arteritis. PROCEDURE: Right temporal artery biopsy. SURGEON: Chung De Oliveira MD ANESTHESIA: General. ESTIMATED BLOOD LOSS: Minimal. PATIENT CONDITION: Stable. COMPLICATIONS: None. SPECIMENS: Right temporal artery biopsy. INDICATIONS: The patient is a 63-year-old male with new onset right-sided headaches, some degree of jaw claudication. There is concern for giant cell arteritis that he is referred for temporal artery biopsy. Discussion was had with the patient. Risks of infection, bleeding, injury to facial nerve, and possibility of a negative biopsy or positive biopsy that unilateral has less yield than bilateral, but he does want to proceed with unilateral right temporal artery biopsy. FINDINGS: Over 2 cm segment of artery was taken. DESCRIPTION OF PROCEDURE: The patient was brought to the operating room. General anesthesia induced. Routinely positioned, prepped and draped. Time-out performed. Received a preoperative antibiotic in the preoperative holding area. He did have the right temporal artery marked out. The skin is incised on the right side over the artery. About 2.5 cm incision is made and carried down through the facet of the artery, which is identified clearly and taken just past the branch point. An over 2 cm artery is dissected out and ligated with silk ties, sent on a formalin for pathologic evaluation. There is good hemostasis. The skin is closed with interrupted buried 4-0 Monocryl sutures. Surgicel applied. All counts were correct. Patient tolerated the procedure well. Plan is for extubation.
== END 2024-06-06 15:09 | disposition home or self-care (01) ==
LOC: SDC 11:47
PROVIDERS: ATTEND Surgery
DX: M31.6 Other giant cell arteritis (principal); I10 Essential (primary) hypertension; Z85.01 Personal history of malignant neoplasm of esophagus
CPT/HCPCS: 36415; 80048; 93005; J0690; J2371; J2405; J2704; J3010

== ENCOUNTER 2024-06-28 04:27 | Emergency (ER) | payer MEDICARE ==
[2024-06-28 05:07] VITALS: TEMP 97.7
[2024-06-28] MEDS: ZOFRAN ODT 4 MG PO ONE (05:40)
[2024-06-28] MEDS ORDERED: ZOFRAN ODT 4 MG ONE (05:40)
--- NOTE | 2024-06-28 05:52 | ERPHSYRPT ---
- History of Present Illness Time Seen by Provider: 06/28/24 05:46 Source: patient Exam Limitations: no limitations Patient Subjective Stated Complaint: pt states that his g tube fell out this morning Triage Nursing Assessment: pt ambulated into the er; pt is axo x4; pt c/o headache and bodyaches; pt states 7/10 pain to head; pt has g tube in sandwich bag; no redness or swelling around opening; skin PDW; no respiratory distress present; cough present; c/o N/V; vitals wnl Physician History: 63-year-old male with history of dysphagia secondary to esophageal cancer with a G-tube which accidentally fell out this morning prior to arrival. Patient denies any abdominal pain. No discharge. Allergies/Adverse Reactions: No Known Drug Allergies Allergy (Verified 06/28/24 04:42) Home Medications: Hydrocodone/Acetaminophen [Hydrocodone-Acetamin 5-325 mg] 1 each PO Q6HPRN PRN 06/06/22 [History] Rosuvastatin Calcium 20 mg PO LUNCH 03/14/23 [History] Acetaminophen 500 mg [Tylenol Extra Strength 500 mg] 500 mg PO TID 06/28/24 [History] Hx Tetanus, Diphtheria Vaccination/Date Given: Yes Hx Influenza Vaccination/Date Given: No Hx Pneumococcal Vaccination/Date Given: No Travel Risk - International Travel Have you traveled outside of the country in past 3 weeks: No - Emerging Infectious Disease Are you exhibiting symptoms associated with any current EIDs: Yes Symptoms: Abdominal Pain, Headaches/Body Aches/, Vomitting - Review of Systems Constitutional: No Symptoms Ears, Nose, & Throat: No Symptoms Respiratory: No Symptoms Cardiac: No Symptoms Abdominal/Gastrointestinal: Dysphagia Musculoskeletal: Arthralgias, Myalgias Neurological: Headache Psychological: No Symptoms - Past Medical History Pertinent Past Medical History: Yes (REVIEW INITIAL EVAL) Neurological History: No Pertinent History ENT History: Other Cardiac History: Arrhythmia, High Cholesterol, Hypertension Respiratory History: COPD, Pneumonia Endocrine Medical History: No Pertinent History Musculoskeletal History: Fractures GI Medical History: Hernia, Other History: No Pertinent History Psycho-Social History: Other Male Reproductive Disorders: No Pertinent History Other Medical History: PATIENT HAS HX OF ESOPHAGEAL CANCER. HE HAD ESOPHAGEAL STINT PLACED 2023. Thrombocytopenia - Past Surgical History Past Surgical History: Yes Neuro Surgical History: No Pertinent History Cardiac: No Pertinent History Respiratory: No Pertinent History Gastrointestinal: No Pertinent History Genitourinary: No Pertinent History Musculoskeletal: Orthopedic Surgery Male Surgical History: No Pertinent History Other Surgical History: PEG TUBE PLACED APPROXIMATELY 4 YEARS AGO. CVL PORT. esophageal stent - Social History Smoking Status: Current every day smoker How long have you smoked: 30+ years Exposure to second hand smoke: No Drug Use: none - Social Determinants of Health Will the patient participate in the screening: Yes Do you worry about a steady place to live?: No Do you have any problems with any of the following?: No known problems In the past 12 months,have you had to go without utilities?: No Transportation Issues: No Has anyone in your support network made you feel unsafe?: No Have you or anyone in your house had to go w/o enough food: No - Nursing Vital Signs Nursing Vital Signs: Initial Vital Signs Pulse Rate 95 H 06/28/24 04:44 Respiratory Rate 16 06/28/24 04:44 Blood Pressure 139/94 06/28/24 04:44 O2 Sat by Pulse Oximetry 96 06/28/24 04:44 Pain Scale Pain Intensity 7 - Physical Exam General Appearance: no apparent distress, cachetic Ears, Nose, Throat Exam: moist mucous membranes Neck Exam: normal inspection, full range of motion Respiratory Exam: normal breath sounds, lungs clear Cardiovascular Exam: regular rate/rhythm, normal heart sounds Gastrointestinal/Abdomen Exam: soft, normal bowel sounds, tenderness (Minimal tenderness around tube insertion site) Extremity Exam: normal range of motion Neurologic Exam: alert, oriented x 3, cooperative, loss prevention agent II-XII nml as tested, sensation nml, No motor deficits Skin Exam: normal color SpO2 Interpretation: normal SpO2: 96 O2 Delivery: Room Air Procedures - Additional Procedures Additional Procedures: gastric tube replacement (Under aseptic measures G-tube was lubricated and inserted with inflation of balloon. Patient tolerated procedure very well.) Ordered Tests: Active Orders 24 hr Category Date Time Status KUB Stat Exams 06/28/24 05:43 Taken Medication Summary Discontinued Medications Generic Name Dose Route Start Last Admin Trade Name Freq PRN Reason Stop Dose Admin Ondansetron HCl 4 mg 06/28/24 05:39 06/28/24 05:40 Zofran 4 Mg/Udtablet Orally Disintegrating PO 06/28/24 05:40 4 mg STAT ONE Administration Ondansetron HCl Confirm 06/28/24 05:40 Zofran 4 Mg/Udtablet Orally Disintegrating Administered 06/28/24 05:41 Dose 4 mg .ROUTE .STK-MED ONE - Progress Progress: improved Progress Note: 06/28/24 05:50 63-year-old is evaluated in the ER after he accidentally pulled out G-tube this morning prior to arrival. After informed consent G-tube was replaced. Gastrografin KUB x-rays showed infiltration of contrast into the stomach reviewed by me followed by official read. After receiving Gastrografin patient got little nauseated and is given ODT Zofran. Stable for discharge. Gastrostomy tube care discussed with patient Counseled pt/family regarding: diagnosis, need for follow-up, rad results Medical Desision Making - Diagnostic Testing Diagnostic test were ordered, analyzed, and reviewed by me: Yes Radiological Interpretation: Interpreted by me, Reviewed by me, Teleradiologist Report - Risk of complications The pt has a mod risk of morbidity or mortality based on: Need for prescription drug management - Departure Departure Disposition: Home Clinical Impression: Dislodged gastrostomy tube Condition: Stable Critical Care Time: No Referrals: JAKOB MCBRIDE MD [Primary Care Provider] - Follow up with PCP 1 day Instructions: How to care for a G tube or G button
[2024-06-28 06:15] VITALS: O2SAT 92
--- NOTE | 2024-06-28 06:52 | XRAY ---
CLINICAL HISTORY: g tube placement COMPARISON: None. TECHNIQUE: X-ray abdomen AP view. FINDINGS: Gastrostomy tube seen in the left side of the abdomen likely to be in the stomach. Multiple barium contrast failed GERD loops seen mainly on the left side of the abdomen. Mild to moderate degenerative changes seen in the visualized spine IMPRESSION: Gastrostomy tube seen in the left side of upper abdomen likely to be in the stomach. Electronically Signed by: Sylvie Tristan MD. (06/28/2024 06:48:03 EST)
[2024-06-28 07:02] VITALS: BP 129/61; PULSE 82; RESP 17
== END 2024-06-28 07:36 | disposition home or self-care (01) ==
LOC: ED 04:27
DX: K94.23 Gastrostomy malfunction (principal); E78.5 Hyperlipidemia, unspecified; I10 Essential (primary) hypertension; Z79.899 Other long term (current) drug therapy; Z72.0 Tobacco use
CPT/HCPCS: 43762; 74018; 99281; 99283; Q0162

== ENCOUNTER 2024-11-19 13:18 | Emergency (ER) | payer MEDICARE ==
--- NOTE | 2024-11-19 13:24 | ERPHSYRPT ---
- History of Present Illness Time Seen by Provider: 11/19/24 13:24 Source: patient, family Exam Limitations: clinical condition Physician History: This is a 64-year-old white male who arrives by private vehicle accompanied by his son as a patient Dr. Mcbride with concerns and complaints of weakness and dehydration and intermittent diarrhea. Symptoms have been present and worsening over the last few days. He denies chest pain. He denies shortness of breath. His room air oxygen saturation level is 99%. He has no abdominal pain. Patient just does not feel like eating or drinking. Patient has a history of esophageal cancer and has a stent in place. Patient has a history of hyperlipidemia, hypertension and arrhythmia. Timing/Duration: day(s) (3) Severity: mild (To moderate) Associated Symptoms: nausea, loss of appetite, weakness, No vomiting, No abdominal pain, No shortness of breath, No chest pain, No fever Allergies/Adverse Reactions: No Known Drug Allergies Allergy (Verified 07/04/24 09:28) Home Medications: Hydrocodone/Acetaminophen [Hydrocodone-Acetamin 5-325 mg] 1 each PO Q6HPRN PRN 06/06/22 [History] Rosuvastatin Calcium 20 mg PO LUNCH 03/14/23 [History] Ondansetron ODT 4 MG [Zofran Odt 4 mg] 4 mg PO Q4-6HPRN PRN 11/19/24 [History] Hx Tetanus, Diphtheria Vaccination/Date Given: Yes Hx Influenza Vaccination/Date Given: No Hx Pneumococcal Vaccination/Date Given: No Travel Risk - International Travel Have you traveled outside of the country in past 3 weeks: No - Emerging Infectious Disease Are you exhibiting symptoms associated with any current EIDs: Yes Symptoms: Abdominal Pain, Headaches/Body Aches/, Vomitting - Review of Systems Constitutional: Weakness Eyes: No Symptoms Ears, Nose, & Throat: No Symptoms Respiratory: No Symptoms Cardiac: No Symptoms Abdominal/Gastrointestinal: Nausea, Diarrhea, Appetite Changes, No Abdominal Pain, No Vomiting Genitourinary Symptoms: No Symptoms Musculoskeletal: No Symptoms Skin: No Symptoms Neurological: No Symptoms Psychological: No Symptoms Endocrine: No Symptoms Hematologic/Lymphatic: No Symptoms Immunological/Allergic: No Symptoms All Other Systems: Reviewed and Negative - Past Medical History Pertinent Past Medical History: Yes (REVIEW INITIAL EVAL) Neurological History: No Pertinent History ENT History: Other Cardiac History: Arrhythmia, High Cholesterol, Hypertension Respiratory History: COPD, Pneumonia Endocrine Medical History: No Pertinent History Musculoskeletal History: Fractures GI Medical History: Hernia, Other History: No Pertinent History Psycho-Social History: Other Male Reproductive Disorders: No Pertinent History Other Medical History: PATIENT HAS HX OF ESOPHAGEAL CANCER. HE HAD ESOPHAGEAL STINT PLACED 2023. Thrombocytopenia - Past Surgical History Past Surgical History: Yes Neuro Surgical History: No Pertinent History Cardiac: No Pertinent History Respiratory: No Pertinent History Gastrointestinal: No Pertinent History Genitourinary: No Pertinent History Musculoskeletal: Orthopedic Surgery Male Surgical History: No Pertinent History Other Surgical History: PEG TUBE PLACED APPROXIMATELY 4 YEARS AGO. CVL PORT. esophageal stent - Social History Smoking Status: Current every day smoker How long have you smoked: 30+ years Exposure to second hand smoke: No Drug Use: none - Social Determinants of Health Will the patient participate in the screening: Yes Do you worry about a steady place to live?: No In the past 12 months,have you had to go without utilities?: No Transportation Issues: No Has anyone in your support network made you feel unsafe?: No Have you or anyone in your house had to go w/o enough food: No - Nursing Vital Signs Nursing Vital Signs: Initial Vital Signs Temperature 98.3 F 11/19/24 13:22 Pulse Rate 71 11/19/24 13:22 Blood Pressure 107/80 11/19/24 13:22 O2 Sat by Pulse Oximetry 96 11/19/24 13:22 Pain Scale Pain Intensity 0 - Physical Exam General Appearance: no apparent distress, alert, cachetic Eye Exam: PERRL/EOMI, eyes nml inspection Ears, Nose, Throat Exam: dry mucous membranes Neck Exam: normal inspection, non-tender, supple, full range of motion Respiratory Exam: normal breath sounds, lungs clear, airway intact, No chest tenderness, No respiratory distress Cardiovascular Exam: regular rate/rhythm, normal heart sounds, normal peripheral pulses Gastrointestinal/Abdomen Exam: soft, normal bowel sounds, No tenderness Rectal Exam: not done Back Exam: normal inspection, normal range of motion, No CVA tenderness, No vertebral tenderness Extremity Exam: normal inspection, normal range of motion, pelvis stable Neurologic Exam: alert, oriented x 3, cooperative, sensation nml Skin Exam: normal color, warm, dry Lymphatic Exam: No adenopathy SpO2 Interpretation: normal O2 Delivery: Room Air - Course Nursing assessment & vital signs reviewed: Yes Ordered Tests: Active Orders 24 hr Category Date Time Status EKG-ER Only STAT Care 11/19/24 17:37 Active IV Insertion STAT Care 11/19/24 13:38 Active AMYLASE Stat Lab 11/19/24 13:43 Completed CBC W DIFF Stat Lab 11/19/24 13:43 Completed CMP Stat Lab 11/19/24 13:43 Completed CULTURE,URINE Stat Lab 11/19/24 16:46 Received LIPASE Stat Lab 11/19/24 13:43 Completed Lactic Acid Stat Lab 11/19/24 13:40 Completed UA W/RFX UR CULTURE Stat Lab 11/19/24 16:46 Completed Medication Summary Discontinued Medications Generic Name Dose Route Start Last Admin Trade Name Freq PRN Reason Stop Dose Admin Hydromorphone HCl 1 mg 11/19/24 13:38 11/19/24 14:20 Hydromorphone 1 Mg/1ml Inj IV 11/19/24 13:39 1 mg STAT ONE Administration Hydromorphone HCl Confirm 11/19/24 14:17 Hydromorphone 1 Mg/1ml Inj Administered 11/19/24 14:18 Dose 1 mg .ROUTE .STK-MED ONE Sodium Chloride 1,000 mls @ 999 mls/hr 11/19/24 13:38 11/19/24 15:04 Sodium Chloride 0.9% 1000 Ml IV 11/19/24 14:38 Infused .Q1H1M STA Infusion Sodium Chloride Confirm 11/19/24 13:55 Sodium Chloride 0.9% 1000 Ml Administered 11/19/24 13:56 Dose 1,000 mls @ ud .ROUTE .STK-MED ONE Lactated Ringer's 1,000 mls @ 999 mls/hr 11/19/24 14:55 11/19/24 16:19 Lactated Ringers IV 11/19/24 15:55 Infused .Q1H1M ONE Infusion Lactated Ringer's Confirm 11/19/24 15:08 Lactated Ringers Administered 11/19/24 15:09 Dose 1,000 mls @ ud IV .STK-MED ONE Sodium Chloride 500 mls @ 500 mls/hr 11/19/24 16:40 11/19/24 16:53 Sodium Chloride 0.9% 500 Ml IV 11/19/24 17:39 500 mls/hr .Q1H ONE Administration Sodium Chloride Confirm 11/19/24 16:47 Sodium Chloride 0.9% 500 Ml Administered 11/19/24 16:48 Dose 500 mls @ ud IV .STK-MED ONE Ondansetron HCl 4 mg 11/19/24 13:38 11/19/24 14:00 Ondansetron Hcl 4 Mg/2 Ml Vial IV 11/19/24 13:39 4 mg STAT ONE Administration Ondansetron HCl Confirm 11/19/24 13:54 Ondansetron Hcl 4 Mg/2 Ml Vial Administered 11/19/24 13:55 Dose 4 mg .ROUTE .STK-MED ONE Pantoprazole Sodium 40 mg 11/19/24 13:38 11/19/24 14:00 Pantoprazole 40 Mg Vial IV 11/19/24 13:39 40 mg STAT ONE Administration Pantoprazole Sodium Confirm 11/19/24 13:55 Pantoprazole 40 Mg Vial Administered 11/19/24 13:56 Dose 40 mg IV .STK-MED ONE Potassium Bicarbonate 25 meq 11/19/24 15:22 11/19/24 15:32 Potassium Bicarbonate 25 Meq Tab G-TUBE 11/19/24 15:23 25 meq STAT ONE Administration Potassium Bicarbonate Confirm 11/19/24 15:25 Potassium Bicarbonate 25 Meq Tab Administered 11/19/24 15:26 Dose 25 meq .ROUTE .STK-MED ONE Potassium Chloride 10 meq 11/19/24 14:55 11/19/24 15:12 Potassium Chloride Tab 10 Meq Tab PO 11/19/24 14:56 Not Given STAT ONE Potassium Chloride Confirm 11/19/24 15:08 Potassium Chloride Tab 10 Meq Tab Administered 11/19/24 15:09 Dose 10 meq .ROUTE .STK-MED ONE Lab/Rad Data: Laboratory Result Diagrams 11/19/24 13:43 11/19/24 13:43 Laboratory Results 11/19/24 11/19/24 11/19/24 Range/Units 16:46 13:43 13:43 WBC 6.9 (4.23-9.07) x10^3/uL RBC 3.24 L (4.63-6.08) x10^6/uL Hgb 10.6 L (13.7-17.5) g/dL Hct 33.3 L (40.1-51.0) % MCV 102.8 H (79.0-92.2) fL MCH 32.7 H (25.7-32.2) pg MCHC 31.8 L (32.3-36.5) g/dL RDW 15.6 H (11.6-14.4) % Plt Count 250 (163-337) x10^3/uL MPV 9.7 (9.4-12.4) fL Gran % 80.5 H (34.0-67.9) % Immature Gran % (Auto) 0.4 (0.001-0.429) % Nucleat RBC Rel Count 0.0 (0.00-0.2) % Eos # (Auto) 0.06 (0.04-0.54) x10^3/uL Immature Gran # (Auto) 0.03 (0.001-0.031) x10^3u/L Absolute Lymphs (auto) 0.48 L (1.32-3.57) x10^3/uL Absolute Monos (auto) 0.76 (0.30-0.82) x10^3/uL Absolute Nucleated RBC 0.00 (0.00-0.012) x10^3u/L Lymphocytes % 7.0 L (21.8-53.1) % Monocytes % 11.1 (5.3-12.2) % Eosinophils % 0.9 (0.8-7.0) % Basophils % 0.1 L (0.2-1.2) % Absolute Granulocytes 5.51 H (1.78-5.38) x10^3/uL Basophils # 0.01 (0.01-0.08) x10^3/uL Sodium 133 L (135-145) mmol/L Potassium 3.3 L (3.5-5.1) mmol/L Chloride 92 L (98-107) mmol/L Carbon Dioxide 33 H (22-30) mmol/L Anion Gap 10.4 (5-15) MEQ/L BUN 23 H (9-20) mg/dL Creatinine 0.62 L (0.66-1.25) mg/dL Estimated GFR 107.4 ML/MIN Glucose 127 H (74-106) mg/dL Lactic Acid (0.4-2.0) Calcium 9.5 (8.4-10.2) mg/dL Total Bilirubin 0.80 (0.2-1.3) mg/dL AST 59 (17-59) U/L ALT 65 H (0-50) U/L Alkaline Phosphatase 148 H (38-126) U/L Serum Total Protein 7.9 (6.3-8.2) g/dL Albumin 3.5 (3.5-5.0) g/dL Amylase 53 (30-110) U/L Lipase 33 (23-300) U/L Urine Color Dark Yellow (Yellow) Urine Appearance Clear (Clear) Urine pH 7.0 (4.6-8.0) Ur Specific [place] 1.025 (1.005-1.030) Urine Protein 30 (Negative) Urine Glucose (UA) Negative (Negative) mg/dL Urine Ketones Negative (Negative) Urine Blood Negative (Negative) Urine Nitrite Negative (Negative) Urine Bilirubin Negative (Negative) Urine Urobilinogen 2.0 A (0.2) mg/dL Ur Leukocyte Esterase Trace A (Negative) U Hyaline Cast (Auto) 3-5 A (0-2) /LPF Urine Microscopic RBC 0-2 (0-5) /HPF Urine Microscopic WBC 0-2 (0-5) /HPF Ur Epithelial Cells None Seen (None Seen) /HPF Urine Bacteria None Seen (None Seen) /HPF Urine Culture Reflexed YES (NO) Slides for Path Review YES 11/19/24 Range/Units 13:40 WBC (4.23-9.07) x10^3/uL RBC (4.63-6.08) x10^6/uL Hgb (13.7-17.5) g/dL Hct (40.1-51.0) % MCV (79.0-92.2) fL MCH (25.7-32.2) pg MCHC (32.3-36.5) g/dL RDW (11.6-14.4) % Plt Count (163-337) x10^3/uL MPV (9.4-12.4) fL Gran % (34.0-67.9) % Immature Gran % (Auto) (0.001-0.429) % Nucleat RBC Rel Count (0.00-0.2) % Eos # (Auto) (0.04-0.54) x10^3/uL Immature Gran # (Auto) (0.001-0.031) x10^3u/L Absolute Lymphs (auto) (1.32-3.57) x10^3/uL Absolute Monos (auto) (0.30-0.82) x10^3/uL Absolute Nucleated RBC (0.00-0.012) x10^3u/L Lymphocytes % (21.8-53.1) % Monocytes % (5.3-12.2) % Eosinophils % (0.8-7.0) % Basophils % (0.2-1.2) % Absolute Granulocytes (1.78-5.38) x10^3/uL Basophils # (0.01-0.08) x10^3/uL Sodium (135-145) mmol/L Potassium (3.5-5.1) mmol/L Chloride (98-107) mmol/L Carbon Dioxide (22-30) mmol/L Anion Gap (5-15) MEQ/L BUN (9-20) mg/dL Creatinine (0.66-1.25) mg/dL Estimated GFR ML/MIN Glucose (74-106) mg/dL Lactic Acid 1.2 (0.4-2.0) Calcium (8.4-10.2) mg/dL Total Bilirubin (0.2-1.3) mg/dL AST (17-59) U/L ALT (0-50) U/L Alkaline Phosphatase (38-126) U/L Serum Total Protein (6.3-8.2) g/dL Albumin (3.5-5.0) g/dL Amylase (30-110) U/L Lipase (23-300) U/L Urine Color (Yellow) Urine Appearance (Clear) Urine pH (4.6-8.0) Ur Specific [place] (1.005-1.030) Urine Protein (Negative) Urine Glucose (UA) (Negative) mg/dL Urine Ketones (Negative) Urine Blood (Negative) Urine Nitrite (Negative) Urine Bilirubin (Negative) Urine Urobilinogen (0.2) mg/dL Ur Leukocyte Esterase (Negative) U Hyaline Cast (Auto) (0-2) /LPF Urine Microscopic RBC (0-5) /HPF Urine Microscopic WBC (0-5) /HPF Ur Epithelial Cells (None Seen) /HPF Urine Bacteria (None Seen) /HPF Urine Culture Reflexed (NO) Slides for Path Review - Progress Progress: improved, re-examined Progress Note: 11/19/24 13:46 My medical decision making and the assignment of moderate complexity of this patient's medical issue today is based on review of the patient's past medical history, reviewed patient's medication list, reviewed patient drug allergy list, history present illness and physical findings on examination. The workup in this patient today includes placement of intravenous line, infusion of normal saline solution, CBC, CMP, amylase, lipase, magnesium level, urinalysis, provide the patient with 4 mg intravenous Zofran, 1 mg intravenous Dilaudid (patient takes hydrocodone every 4 hours and he has not had his hydrocodone in 4 hours), intravenous Protonix. Differential diagnosis includes but is not limited to dehydration, urinary tract infection, electrolyte abnormalities, change in appetite 11/19/24 17:08 I interpreted the patient's laboratory data results. Based on laboratory data results, there are no acute, emergent medical issues. The patient's potassium was slightly low and we provided him with additional potassium bicarbonate through his feeding tube. 11/19/24 17:10 I reexamined the patient. The patient states he is feeling better. I did offer to place him in observation. I do not think that it is absolutely necessary to do so as he is receiving his medication and tube feedings at home through his feeding tube. We will await his decision. 11/19/24 17:37 I had a long discussion with the patient and his son. I reviewed the results of the studies that have returned. The urinalysis does not show urinary tract infection or evidence of dehydration although clinically I think he was dehydrated. Patient states he is feeling better. However his heart rate seems to jump from the low 80s to the 140s. He has no chest pain. He has had a history in the past of atrial fibrillation. It is been at least 6 months since he has been off any medication for this. His port engineer is Dr. Perez. We will order a twelve-lead EKG. Patient prefers to go home but if he needs to stay to get his atrial fibrillation under control he will stay. 11/19/24 17:47 Twelve-lead EKG was performed and I interpreted this twelve-lead EKG. It was performed on 11/19/2024 at 1743. Heart rate is 78. In his sinus or ectopic atrial rhythm. There is normal QRS, normal intervals and normal axis deviation. QTc is 453. There is no evidence of acute ischemia. 11/19/24 17:50 The patient states that he wants to go home. I think this is reasonable. Counseled pt/family regarding: lab results, diagnosis, need for follow-up Medical Desision Making - Independent Historian Additional History obtained from: Family - Diagnostic Testing Diagnostic test were ordered, analyzed, and reviewed by me: Yes - Risk of complications Low Risk: Low risk of morbidity from additional dx testing or treatment - Departure Departure Disposition: Home Clinical Impression: Dehydration, Hypokalemia, inadequate intake, Decreased appetite, Weakness Condition: Stable Critical Care Time: No Referrals: JAKOB MCBRIDE MD [Primary Care Provider, [facility]] - Follow up/PCP as directed Additional Instructions: Continue your medications and feeding tubes as prescribed. Call your prescribing provider tomorrow, 11/20/2024, to discuss ways of providing you greater amount of fluid intake and nutritional intake.
[2024-11-19 13:36] VITALS: TEMP 98.3
[2024-11-19] MEDS ORDERED: Zofran 4 MG/2 ML VIAL ONE (13:54)
[2024-11-19] MEDS ORDERED: PROTONIX 40 MG IV IV ONE (13:55)
[2024-11-19] MEDS: PROTONIX 40 MG IV IV ONE (14:00)
[2024-11-19] MEDS: Zofran 4 MG/2 ML VIAL IV ONE (14:00)
[2024-11-19 14:01] LABS: BASOPHIL % 0.1 % (0.2-1.2); Basophil (Absolute #) 0.01 x10^3/uL (0.01-0.08); Calcium 9.5 mg/dL (8.4-10.2); Carbon Dioxide 33.0 mmol/L (22-30); Creatinine 1 0.62 mg/dL (0.66-1.25); EST GLOMERULAR FILTRATION RATE 107.4 ML/MIN; Eosinophil (Absolute #) 0.06 x10^3/uL (0.04-0.54); Glucose 127.0 mg/dL (74-106); Hematocrit 33.3 % (40.1-51.0); Hemoglobin 10.6 g/dL (13.7-17.5); IMMATURE GRAN # 0.03 x10^3u/L (0.001-0.031); IMMATURE GRAN % 0.4 % (0.001-0.429); Lymphocyte (Absolute #) 0.48 x10^3/uL (1.32-3.57); Mean Corpuscular Hemoglobin 32.7 pg (25.7-32.2); Mean Corpuscular Hgb Concent. 31.8 g/dL (32.3-36.5); Monocyte (Absolute #) 0.76 x10^3/uL (0.30-0.82); NUCLEATED RBC # 0.00 x10^3u/L (0.00-0.012); NUCLEATED RBC % 0.0 % (0.00-0.2); Platelet Count 250 x10^3/uL (163-337); Potassium 3.3 mmol/L (3.5-5.1); Red Blood Count 3.24 x10^6/uL (4.63-6.08); SGOT/AST 59.0 U/L (17-59); SGPT/ALT 65.0 U/L (0-50); Total Protein 7.9 g/dL (6.3-8.2); White Blood Count 6.9 x10^3/uL (4.23-9.07)
[2024-11-19] MEDS ORDERED: Hydromorphone 1 mg/ml Injection ONE (14:17)
[2024-11-19] MEDS: Hydromorphone 1 mg/ml Injection IV ONE (14:20)
[2024-11-19 14:34] LABS: Slide Review 1 YES
[2024-11-19] MEDS ORDERED: Klor Con ONE (15:08)
[2024-11-19] MEDS ORDERED: Lactated Ringers 1,000 ML IV ONE (15:08)
[2024-11-19] MEDS: Klor Con PO ONE (15:12)
[2024-11-19] MEDS: Lactated Ringers 1,000 ML IV ONE (15:15)
[2024-11-19] MEDS ORDERED: K-LYTE ONE (15:25)
[2024-11-19] MEDS: K-LYTE G-TUBE ONE (15:32)
[2024-11-19 16:57] LABS: Glucose, Urine Negative (Negative); Protein,Urine Dip 30 (Negative); RBC 0-2 /HPF (0-5); WBC 0-2 /HPF (0-5)
[2024-11-19 18:14] VITALS: BP 120/71; PULSE 80; RESP 14; O2SAT 96
== END 2024-11-19 18:17 | disposition home or self-care (01) ==
LOC: ED 13:18
DX: E86.0 Dehydration (principal); E87.6 Hypokalemia; Z72.4 Inappropriate diet and eating habits; R53.1 Weakness; I10 Essential (primary) hypertension; Z79.899 Other long term (current) drug therapy; Z72.0 Tobacco use